=== PATIENT | female | born 1965 | race Caucasian/White ===

== ENCOUNTER 2019-12-03 07:43 | Outpatient (REF) | payer OTHER, SELFPAY ==
--- NOTE | 2019-12-03 07:55 | ECG_ITS ---
Test Reason : PHYSICAL Blood Pressure : / mmHG Vent. Rate : 074 BPM Atrial Rate : 074 BPM P-R Int : 192 ms QRS Dur : 086 ms QT Int : 414 ms P-R-T Axes : 027 -09 010 degrees QTc Int : 459 ms Normal sinus rhythm Normal ECG No previous ECGs available Referred By: Gerber Ivan Electronically Signed By:BOO MORELOS MD
[2019-12-03 10:17] LABS: MANUAL DIFF FLAG NO
[2019-12-03 10:32] LABS: Basophils Percent Auto 0.4 % (0-2); Eosinophils Absolute Auto 0.1 X10*3/uL (0.0-0.4); Eosinophils Percent Auto 0.7 % (0-4); Hemoglobin 12.5 g/dl (12.0-16.0); Imm Gran Abs Auto 0.01 X10*3/uL (0.00-0.03); Imm Gran Pct Auto 0.1 % (0.0-0.4); Lymphocytes Absolute Auto 2.7 X10*3/uL (1.2-4.9); Lymphocytes Percent Auto 38.7 % (20-40); Mean Corpuscular HGB Conc 32.9 g/dl (31.0-35.0); Mean Corpuscular Hemoglobin 30.1 pg (27.0-33.0); Mean Corpuscular Volume 91.6 fL (80-98); Mean Platelet Volume 9.9 fL (9.4-12.3); Monocytes Absolute Auto 0.6 X10*3/uL (0.1-1.2); Monocytes Percent Auto 8.4 % (2-11); Neutrophils Absolute Auto 3.6 X10*3/uL (2.0-8.3); Neutrophils Percent Auto 51.7 % (45-73); Platelet Count 308 X10*3/uL (160-400); Red Blood Count 4.15 X10*6/uL (4.20-5.50); Red Cell Distribution Width 12.7 % (11.0-16.0)
[2019-12-03 10:45] LABS: Glucose Urine UA NEG (NEG); Leukocyte Esterase Urine NEG (NEG); Nitrite Urine NEG (NEG); PH 7.5 (5.0-8.0); Urine Blood 1+ (NEG); Urine Ketones NEG (NEG); Urine Protein NEG (NEG-TRACE)
[2019-12-03 10:47] LABS: Appearance Urine CLEAR; Color Urine STRAW
[2019-12-03 10:56] LABS: Alanine Aminotransferase 18 U/L (0-31); Albumin Level 4.2 g/dL (3.5-5.0); Alkaline Phosphatase 55 U/L (39-117); Anion Gap 15 (12-20); Aspartate Amino Transferase 18 U/L (5-31); Bilirubin Total 0.5 mg/dL (0.0-1.0); Blood Urea Nitrogen 17 mg/dL (9-16); Calcium 8.5 mg/dL (8.4-10.2); Carbon Dioxide 24 mmol/L (22-29); Chloride 104 mmol/L (96-108); Cholesterol 191 mg/dL; Estimated Glomerular Filt Rate > 60; Glucose Fasting 102 mg/dL (60-99); HDL Cholesterol 49 mg/dL; LDL Cholesterol Calculated 111 mg/dl; Potassium 4.5 mmol/l (3.3-5.1); Sodium 138 mmol/L (135-145); Total Protein 6.8 g/dL (6.5-8.0); Triglycerides 155 mg/dL
[2019-12-03 11:03] LABS: RBC Urine 0-2 /HPF (0); Squamous Epithelial Cell Urine TRACE /LPF; WBC Urine 0-2 /HPF (0-4)
[2019-12-03 11:09] LABS: Vitamin D 25-OH Total 26.3 ng/mL (>30)
== END 2019-12-03 07:44 | disposition home or self-care (01) ==
LOC: HO.LAB 07:43
PROVIDERS: PCP Internal Medicine; Visit Provider Internal Medicine
DX: Z00.00 Encounter for general adult medical examination without abnormal findings (principal); E78.00 Pure hypercholesterolemia, unspecified; E55.9 Vitamin D deficiency, unspecified; R73.03 Prediabetes
CPT/HCPCS: 36415; 80053; 80061; 81001; 82306; 85025; 93005

== ENCOUNTER 2019-12-28 13:53 | Outpatient (REF) | payer OTHER, SELFPAY ==
--- NOTE | 2019-12-28 13:56 | CT_ITS ---
EXAMINATION: CT ABDOMEN AND PELVIS WITHOUT AND WITH CONTRAST CLINICAL INFORMATION: Hematuria COMPARISON: Previous CT of the abdomen and pelvis August 2019 TECHNIQUE: Multidetector volumetric imaging was performed of the abdomen and pelvis before and after the IV administration of mL of Omnipaque 300 intravenous contrast. Sagittal and coronal reformatted images were obtained on the technologist's workstation. This CT examination was performed using dose optimization techniques as appropriate, variously including the following: *Automated exposure control *Adjustment of mA and/or kV according to patient size (this includes techniques or standardized protocols for targeted exams where dose is matched to indication/reason for exam; i.e. extremities or head) *Use of iterative reconstruction technique DLP: 852 mGy-cm FINDINGS: LUNG BASES: The visualized lung bases are unremarkable. LIVER, GALLBLADDER, AND BILIARY TREE: The liver is low in attenuation suggestive of fatty infiltration. No focal liver lesion is seen. The gallbladder is normal. There is no biliary duct dilatation. PANCREAS: Unremarkable SPLEEN: Unremarkable ADRENAL GLANDS: Unremarkable KIDNEYS AND URETERS: There is moderate left hydronephrosis from a 9 x 12 mm stone in the left renal pelvis. There is a small 2 mm stone in the lower pole of the left kidney. The left ureter does not appear dilated. No left ureteral stone is seen. The right kidney and ureter are unremarkable. BLADDER: Unremarkable GASTROINTESTINAL TRACT: The small and large bowel are unremarkable. The appendix is is not seen ABDOMINAL WALL: There is a small umbilical hernia containing fat. LYMPH NODES: Normal VASCULAR: Unremarkable PELVIC VISCERA: Unremarkable OSSEOUS STRUCTURES: There is a small amount of low attenuation seen in the left iliopsoas muscle question representing iliopsoas bursitis axial image 70 series 3. There are stable small sclerotic bone lesions probably representing benign bone islands. CT/CT abdomen pelvis wo/w con IMPRESSION: Moderate left hydronephrosis from a 9 x 12 mm left renal pelvis stone. This is similar to August 2019 exam. Small 2 mm left lower pole renal stone. Fatty liver.
[2019-12-28] MEDS: iohexoL 350 MG/ML 100 ML INFUS..BTL 85 ML IV (15:34)
== END 2019-12-28 13:54 | disposition home or self-care (01) ==
LOC: HO.CT 13:53
PROVIDERS: PCP Internal Medicine; Visit Provider Internal Medicine
DX: R31.0 Gross hematuria (principal)
CPT/HCPCS: 74178; Q9967

== ENCOUNTER → 2020-01-13 14:10 | Outpatient (BNVA) | payer OTHER, SELFPAY | PROVIDERS: PCP Internal Medicine; Referring Provider Internal Medicine; Visit Provider Internal Medicine Gastroenterology | DX: Z76.89 Persons encountering health services in other specified circumstances (principal) ==

== ENCOUNTER 2020-02-16 10:36 | Outpatient (REF) | payer OTHER, SELFPAY ==
[2020-02-16 11:01] LABS: COVID-19 Test Negative (Negative)
== END 2020-02-16 10:37 | disposition home or self-care (01) ==
LOC: HO.EMPCOV 10:36
PROVIDERS: Visit Provider Internal Medicine
DX: Z20.828 Contact with and (suspected) exposure to other viral communicable diseases (principal)
CPT/HCPCS: 87635; C9803

== ENCOUNTER 2020-03-09 07:52 | Outpatient (REF) | payer OTHER, SELFPAY ==
[2020-03-09 08:11] LABS: COVID-19 Test Negative (Negative); IDNOW Serial# 55D5AD1C
== END 2020-03-09 07:53 | disposition home or self-care (01) ==
LOC: HO.LAB 07:52
PROVIDERS: PCP Internal Medicine; Visit Provider Internal Medicine
DX: Z20.822 Contact with and (suspected) exposure to COVID-19 (principal)
CPT/HCPCS: 36415; 87635; C9803

== ENCOUNTER 2020-03-16 07:47 | Outpatient (REF) | payer OTHER, SELFPAY ==
[2020-03-16 08:05] LABS: COVID-19 Test Negative (Negative)
== END 2020-03-16 07:48 | disposition home or self-care (01) ==
LOC: HO.EMPCOV 07:47
PROVIDERS: Visit Provider Internal Medicine
DX: Z20.822 Contact with and (suspected) exposure to COVID-19 (principal)
CPT/HCPCS: 36415; 87635; C9803

== ENCOUNTER 2020-09-15 14:54 | Outpatient (REF) | payer OTHER, SELFPAY ==
--- NOTE | ~2020-09-15 | MM_ITS ---
EXAMINATION: MM SCREENING DIGITAL BREAST TOMOSYNTHESIS, BILATERAL CLINICAL INFORMATION: Screening. Asymptomatic. History focal ADH right breast and flat epithelial atypia. Excisional biopsy 11/19/2018. The lifetime risk of breast cancer based on the Tyrer-Cuzick Model is 31%. COMPARISON: Mammography: 09/10/2019, 11/19/2018, 09/24/2018, 09/15/2018, 09/13/2017, 07/14/2016. TECHNIQUE: Digital breast tomosynthesis is performed in both the craniocaudal and mediolateral oblique views along with computer-aided detection (CAD). Synthesized 2D images are generated from the tomosynthesis. FINDINGS: There are scattered areas of fibroglandular density (ACR BI-RADS breast composition Category b). Parenchymal pattern is similar to prior exam. No interval mass or architectural abnormality or abnormal calcifications. The axilla and skin contours are unremarkable. MM/MM tomosynthesis screening BI IMPRESSION: No mammographic evidence of malignancy. ASSESSMENT: BI-RADS 1: Negative RECOMMENDATION: 1. Routine annual mammography screening. 2. The lifetime risk of breast cancer based on the Tyrer-Cuzick Model is 31%. Additional annual adjunct screening with breast MRI may be of benefit in women with a risk score of 20% or greater. This patient's information was entered into a reminder system with a target due date for their next mammogram.
== END 2020-09-15 14:55 | disposition home or self-care (01) ==
LOC: HO.MAMMO 14:54
PROVIDERS: PCP Internal Medicine; Visit Provider Surgery
DX: Z12.31 Encounter for screening mammogram for malignant neoplasm of breast (principal)
CPT/HCPCS: 77063; 77067

== ENCOUNTER → 2020-11-15 14:33 | Outpatient (BNVA) | payer OTHER, SELFPAY | PROVIDERS: PCP Internal Medicine; Visit Provider Obstetrics & Gynecology ==

== ENCOUNTER → 2020-11-24 08:17 | Outpatient (BNV) | payer OTHER, SELFPAY | PROVIDERS: Visit Provider Internal Medicine Medical Oncology | DX: N60.91 Unspecified benign mammary dysplasia of right breast (principal) | CPT/HCPCS: 99213; 99214 ==

== ENCOUNTER 2020-11-28 08:48 | Outpatient (REF) | payer OTHER, SELFPAY ==
--- NOTE | ~2020-11-28 | MR_ITS ---
EXAMINATION: MR BREAST WITHOUT AND WITH CONTRAST, BILATERAL CLINICAL INFORMATION: High-risk screening. The estimated lifetime risk of developing breast cancer is 31%. History of atypical ductal hyperplasia right breast. Excisional biopsy November 2018. COMPARISON: None. Mammography (nondiagnostic monitor review): 09/15/2020. TECHNIQUE: A 1.5 T system and a dedicated breast coil. T1-weighted sequences without fat-saturation were obtained prior to the administration of contrast. Fat-saturated T1 and T2-weighted sequences were also acquired. The patient received 7.5 mL of IV gadolinium-based contrast, Gadavist. Multiple sequential dynamic T1-weighted sequences were obtained through both breasts with fat-saturation. Subtracted images were reviewed. CAD postprocessing with 3-D reconstructions, maximum intensity projections and kinetic analysis was performed by the interpreting radiologist at an independent workstation and reviewed as a portion of this exam. FINDINGS: Amount of Remaining Fibroglandular Signal: There are scattered areas of fibroglandular tissue (ACR BI-RADS breast composition category B).* Background Parenchymal Enhancement: Mild Symmetry of Background Enhancement: Symmetric RIGHT BREAST: There are no suspicious findings. Masses: There is a circumscribed, oval, T2 intense enhancing mass in the outer right breast with a fatty notch. This appears to correspond to an intramammary lymph node on mammography. Non-Mass Enhancement: There is no suspicious non-mass enhancement. Focus: There are no suspicious enhancing foci. Non-Enhancing Findings: Associated findings: There are no suspicious associated findings. Kinetic Curve Assessment: Initial Phase: There are no suspicious areas of color signal. Delayed Phase: There are no areas of washout kinetics. LEFT BREAST: There is a 0.6 cm enhancing mass in the 12-o'clock position, 9 cm from the left nipple (series 100, image 46; series 8, image 27). This has mixed enhancement kinetics. The margins are minimally indistinct. There is some T2 hyperintensity in this area. There is no convincing mammographic correlate. Masses: There are no suspicious enhancing masses. There is a 0.4 cm progressively enhancing mass in the 3-o'clock position, 10 cm from the left nipple (series 100, image 67). This is T2 intense and may represent an intramammary lymph node. Non-Mass Enhancement: There is no suspicious non-mass enhancement. Focus: There are no suspicious enhancing foci. Non-Enhancing Findings: Associated Findings: There are no suspicious associated findings. Kinetic Curve Assessment: Initial Phase: There are mixed kinetics within the enhancing mass in the 12-o'clock position. Delayed Phase: There are no other areas of washout kinetics. The axillary lymph nodes are morphologically normal. No suspicious internal mammary lymph nodes are seen. No suspicious abnormality in the visualized portions of chest or abdomen. MR/MR breast BI wo/w con IMPRESSION: 1. There is a 0.6 cm enhancing mass in the 12-o'clock position, 9 cm from the left nipple. 2. No convincing mammographic correlate. 3. Recommend MR directed diagnostic left breast ultrasound to determine if there is a targetable lesion. 4. If there is no targetable lesion, recommend MR-guided biopsy. ASSESSMENT: Right Breast: ACR BI-RADS 2: Benign finding. Left Breast: ACR BI-RADS 4: Suspicious abnormality - biopsy should be considered. RECOMMENDATIONS: 1. Recommend further evaluation for the enhancing mass in the 12-o'clock position, 9 cm from the left nipple. This should begin with an MR directed targeted left breast ultrasound. 2. If there is no sonographic correlate, consider MR-guided biopsy.
== END 2020-11-28 08:49 | disposition home or self-care (01) ==
LOC: HO.MRI 08:48
PROVIDERS: Visit Provider Internal Medicine
DX: Z91.89 Other specified personal risk factors, not elsewhere classified (principal)
CPT/HCPCS: 77049; A9585

== ENCOUNTER 2020-12-06 10:37 | Outpatient (REF) | payer OTHER, SELFPAY ==
[2020-12-06 10:42] LABS: MANUAL DIFF FLAG NO
[2020-12-06 11:21] LABS: Basophils Percent Auto 0.3 % (0-2); Eosinophils Absolute Auto 0.1 X10*3/uL (0.0-0.4); Eosinophils Percent Auto 0.9 % (0-4); Hematocrit 39.3 % (37-47); Hemoglobin 12.6 g/dl (12.0-16.0); Imm Gran Abs Auto 0.03 X10*3/uL (0.00-0.03); Imm Gran Pct Auto 0.3 % (0.0-0.4); Lymphocytes Absolute Auto 2.5 X10*3/uL (1.2-4.9); Lymphocytes Percent Auto 26.4 % (20-40); Mean Corpuscular HGB Conc 32.1 g/dl (31.0-35.0); Mean Corpuscular Hemoglobin 30.3 pg (27.0-33.0); Mean Corpuscular Volume 94.5 fL (80-98); Mean Platelet Volume 9.7 fL (9.4-12.3); Monocytes Absolute Auto 0.9 X10*3/uL (0.1-1.2); Monocytes Percent Auto 9.1 % (2-11); Neutrophils Absolute Auto 6.1 X10*3/uL (2.0-8.3); Platelet Count 298 X10*3/uL (160-400); Red Blood Count 4.16 X10*6/uL (4.20-5.50); Red Cell Distribution Width 12.8 % (11.0-16.0); White Blood Count 9.6 X10*3/uL (4.8-10.8)
[2020-12-06 11:32] LABS: Estimated Average Glucose 117 mg/dL; Hemoglobin A1c % 5.7 %
[2020-12-06 11:39] LABS: Alanine Aminotransferase 20 U/L (0-31); Albumin Level 4.3 g/dL (3.5-5.0); Alkaline Phosphatase 55 U/L (39-117); Anion Gap 16 (12-20); Aspartate Amino Transferase 21 U/L (5-31); Bilirubin Total 0.7 mg/dL (0.0-1.0); Blood Urea Nitrogen 20 mg/dL (9-16); Carbon Dioxide 22 mmol/L (22-29); Chloride 105 mmol/L (96-108); Cholesterol 211 mg/dL; Estimated Glomerular Filt Rate > 60; Glucose Fasting 112 mg/dL (60-99); HDL Cholesterol 50 mg/dL; LDL Cholesterol Calculated 131 mg/dl; Potassium 4.3 mmol/L (3.3-5.1); Sodium 139 mmol/L (135-145); Total Protein 6.5 g/dL (6.5-8.0); Triglycerides 151 mg/dL
[2020-12-06 11:41] LABS: Reflex LDLD? No
[2020-12-06 11:54] LABS: Appearance Urine CLEAR; Color Urine YELLOW; Glucose Urine UA NEG (NEG); Leukocyte Esterase Urine NEG (NEG); Nitrite Urine NEG (NEG); Specific Gravity - Urine <= 1.005 (1.005-1.025); Urine Blood NEG (NEG); Urine Ketones NEG (NEG); Urine Protein NEG (NEG-TRACE)
[2020-12-06 11:55] LABS: Creatinine Urine 22.88 mg/dL; Microalbumin Urine < 5.0 mg/L
[2020-12-06 11:56] LABS: Vitamin D 25-OH Total 27.9 ng/mL (>30)
== END 2020-12-06 10:38 | disposition home or self-care (01) ==
LOC: HO.LNP 10:37
PROVIDERS: Visit Provider Internal Medicine
DX: Z00.00 Encounter for general adult medical examination without abnormal findings (principal); E78.00 Pure hypercholesterolemia, unspecified; R73.03 Prediabetes; I10 Essential (primary) hypertension; E55.9 Vitamin D deficiency, unspecified
CPT/HCPCS: 80053; 80061; 81003; 82043; 82306; 83036; 85025

== ENCOUNTER → 2020-12-08 13:32 | Outpatient (BNVA) | payer OTHER, SELFPAY | PROVIDERS: PCP Internal Medicine; Referring Provider Internal Medicine; Visit Provider Surgery ==

== ENCOUNTER 2020-12-09 13:43 | Outpatient (REF) | payer OTHER, SELFPAY ==
--- NOTE | ~2020-12-09 | US_ITS ---
EXAMINATION: US DIAGNOSTIC ULTRASOUND BREAST, LEFT CLINICAL INFORMATION: Enhancing nodule left breast 0.6 cm on recent high risk screening breast MRI. No mammographic correlate. Prior history contralateral right breast atypical ductal hyperplasia and flat epithelial atypia, status post excisional biopsy 11/19/2018. COMPARISON: Breast MRI 11/28/2020, digital breast tomosynthesis 09/15/2020. TECHNIQUE: Ultrasound left breast is performed using grayscale imaging and color Doppler without and with harmonics. Imaging is targeted to the upper and upper outer breast. Patient is imaged supine and semiupright and with arm up and down. FINDINGS: There is no focal suspicious finding. There is no solid mass or architectural abnormality. No ultrasound correlate for MR finding. Results are discussed with the patient at time of visit. US/US breast LT limited IMPRESSION: No ultrasound correlate for recent MR finding left breast. ASSESSMENT: BI-RADS 4: Suspicious RECOMMENDATION: MR guided biopsy left breast. If MR biopsy is not performed, then follow-up breast MR in 6-12 months would be recommended.
== END 2020-12-09 13:44 | disposition home or self-care (01) ==
LOC: HO.MAMMO 13:43
PROVIDERS: Visit Provider Surgery
DX: R92.8 Other abnormal and inconclusive findings on diagnostic imaging of breast (principal)
CPT/HCPCS: 76642

== ENCOUNTER 2020-12-26 07:34 | Outpatient (REF) | payer OTHER, SELFPAY ==
--- NOTE | ~2020-12-26 | MM_ITS ---
EXAMINATION: MR GUIDED VACUUM-ASSISTED CORE BIOPSY BREAST, LEFT MM DIGITAL MAMMOGRAPHY POST BIOPSY, LEFT CLINICAL INFORMATION: 6 mm enhancing nodule mid 12:30 left breast. No ultrasound correlate. Prior history contralateral right focal ADH and flat epithelial atypia. Excisional biopsy 11/19/2018. COMPARISON: Mammography 09/10/2019, MR breasts without and with gadolinium contrast 11/28/2020, second look ultrasound 12/09/2020. TECHNIQUE/PROCEDURE: Informed consent was obtained from the patient after discussion of the benefits, risks, and alternatives to biopsy today. Patient appeared to understand. Gave opportunity for questions. Patient signed consent form. Biopsy is performed under MRI guidance using breast surface coil. Imaging is performed without and with use of 7.5 mL Gadavist gadolinium contrast. [employer] introducer localization system is used with grid. LESION: Enhancing nodule mid 12:30 left breast mid depth approximately 0.6 cm. LOCAL ANESTHESIA: 8 mL 1% lidocaine; 11 mL 1% lidocaine with epinephrine. NEEDLE: [employer] 9-gauge vacuum assisted core biopsy device. APPROACH: Lateral medial. CORES: 8. CLIP: TriMark cylinder shaped. POSTPROCEDURE UNILATERAL DIGITAL MAMMOGRAM: Mammography is performed using digital mammography in CC and ML views. There are scattered areas of fibroglandular density (ACR BI-RADS breast composition Category b). The clip marker is in position. No gross hematoma. The patient tolerated the procedure well. No immediate complications. Home instructions reviewed with the patient. Final pathology results are pending. MM/MM diagnostic mammo unilat LT IMPRESSION: 1. Status post MRI guided vacuum-assisted core biopsy left breast with clip placement. 2. Final pathology results pending. An addendum report will be issued.
--- NOTE | ~2020-12-26 | MR_ITS ---
EXAMINATION: MR GUIDED VACUUM-ASSISTED CORE BIOPSY BREAST, LEFT MM DIGITAL MAMMOGRAPHY POST BIOPSY, LEFT CLINICAL INFORMATION: 6 mm enhancing nodule mid 12:30 left breast. No ultrasound correlate. Prior history contralateral right focal ADH and flat epithelial atypia. Excisional biopsy 11/19/2018. COMPARISON: Mammography 09/10/2019, MR breasts without and with gadolinium contrast 11/28/2020, second look ultrasound 12/09/2020. TECHNIQUE/PROCEDURE: Informed consent was obtained from the patient after discussion of the benefits, risks, and alternatives to biopsy today. Patient appeared to understand. Gave opportunity for questions. Patient signed consent form. Biopsy is performed under MRI guidance using breast surface coil. Imaging is performed without and with use of 7.5 mL Gadavist gadolinium contrast. [employer] introducer localization system is used with grid. LESION: Enhancing nodule mid 12:30 left breast mid depth approximately 0.6 cm. LOCAL ANESTHESIA: 8 mL 1% lidocaine; 11 mL 1% lidocaine with epinephrine. NEEDLE: [employer] 9-gauge vacuum assisted core biopsy device. APPROACH: Lateral medial. CORES: 8. CLIP: TriMark cylinder shaped. POSTPROCEDURE UNILATERAL DIGITAL MAMMOGRAM: Mammography is performed using digital mammography in CC and ML views. There are scattered areas of fibroglandular density (ACR BI-RADS breast composition Category b). The clip marker is in position. No gross hematoma. The patient tolerated the procedure well. No immediate complications. Home instructions reviewed with the patient. Final pathology results are pending. MR/MR guided breast biopsy LT IMPRESSION: 1. Status post MRI guided vacuum-assisted core biopsy left breast with clip placement. 2. Final pathology results pending. An addendum report will be issued.
[2020-12-26] MEDS: Lidocaine HCl 1 % MPF 5 ML VIAL SUBCUT ×2 (09:29→09:31)
== END 2020-12-26 07:35 | disposition home or self-care (01) ==
LOC: HO.MRI 07:34
PROVIDERS: Visit Provider Surgery
DX: R92.8 Other abnormal and inconclusive findings on diagnostic imaging of breast (principal)
CPT/HCPCS: 19085; 77065; 88305; A4648; A9585

== ENCOUNTER 2021-02-22 06:51 | Day surgery (SDC) | payer OTHER, SELFPAY ==
[2021-02-16 12:54] VITALS: BMI 29.5
--- NOTE | 2021-02-21 08:41 | P.CONAN_ITS ---
Documented by User: Ainsley Mckee NP 02/21/21 08:42 HPI - Anesthesia Eval Consult details Narrative: 55yo F for Left Breast Biopsy Needle Localization, Breast Lumpectomy PMFSH Active Problems Active Problems: All Active Problems (Updated 02/16/21 @ 12:56 by Paige Fang RN) Well woman exam (Acute) At high risk for breast cancer (Acute) Atypical ductal hyperplasia of right breast (Acute) Abnormal MRI, breast (Acute) Chronic idiopathic constipation (Acute) Past Medical History Medical History Chronic idiopathic constipation COVID-19 vaccine series completed Kidney stone Family History Family History Father HTN (hypertension) CVD (cardiovascular disease) History of heart bypass surgery Mother HTN (hypertension) Endometrial cancer Paternal Grandmother Breast cancer, Onset Age: 40 Surgical History Surgical History Hx of section Hx of colonoscopy Hx of cystoscopy Hx of right breast biopsy Social History Social History Are you a primary customer care professional to a significant other at home: No Do you presently have visiting nurse or other home services: No Alcohol intake: current Alcohol intake frequency: a few times a week Alcohol type: wine Patient Tobacco Use Status: Never used Tobacco Use of substances other than those prescribed or required for medical reasons: No Have you been hit, kicked, punched, or otherwise hurt by someone within the past year? If so, by whom?: No Are you DNR?: No Advance Directives: No Advance Directives Information Provided: Yes (informational brochure mailed) Advance Directives on File: No Recently lost weight without trying: No Eating poorly because of decreased appetite: No Nutrition Risks: No Nutritional Risk Patient : No FDLMP: post menopausal : No Poor oral hygiene: No Meds Allergies Allergy/AdvReac Type Severity Reaction Status Date / Time No Known Allergies Allergy Verified 02/22/21 07:06 Home Medications Medication Instructions Recorded Confirmed Last Taken Type docusate sodium 50 mg capsule 50 mg PO DAILY 11/24/20 02/16/21 Unknown History loratadine 10 mg capsule 10 mg PO DAILY 11/24/20 02/16/21 Unknown History magnesium 30 mg tablet 30 mg PO DAILY 11/24/20 02/16/21 Unknown History Lactobacillus acidophilus 10 10,000 mmu cells PO DAILY 02/16/21 02/16/21 Unknown History billion cell capsule (Probiotic) evening primrose oil 500 mg capsule 500 mg PO DAILY 02/16/21 02/16/21 Unknown History Exam Exam Date and Time: February 21, 2021 0841 Height,Weight and Vital Signs: Height 5 ft 1 in Weight 70.76 kg Pertinent Lab Results Pertinent Lab Results: Laboratory Tests 12/06/20 12/06/20 07:10 07:10 WBC 9.6 Hgb 12.6 Hct 39.3 Plt Count 298 Sodium 139 Potassium 4.3 Chloride 105 Carbon Dioxide 22 BUN 20 H Creatinine 0.73 Assessment and Plan Assessment Anesthesia Assessment: Chart Reviewed Documented by User: Kvng Erwin 02/22/21 07:54 PMFSH Past Medical History Medical History Chronic idiopathic constipation COVID-19 vaccine series completed Kidney stone Functional capacity: independent ambulation Family History Family History Father HTN (hypertension) CVD (cardiovascular disease) History of heart bypass surgery Mother HTN (hypertension) Endometrial cancer Paternal Grandmother Breast cancer, Onset Age: 40 Family history of problems with anesthesia: No Surgical History Surgical History Hx of section Hx of colonoscopy Hx of cystoscopy Hx of right breast biopsy History of Problems with Anesthesia: No Social History Social History Are you a primary customer care professional to a significant other at home: No Do you presently have visiting nurse or other home services: No Alcohol intake: current Alcohol intake frequency: a few times a week Alcohol type: wine Patient Tobacco Use Status: Never used Tobacco Use of substances other than those prescribed or required for medical reasons: No Have you been hit, kicked, punched, or otherwise hurt by someone within the past year? If so, by whom?: No Are you DNR?: No Advance Directives: No Advance Directives Information Provided: Yes (informational brochure mailed) Advance Directives on File: No Recently lost weight without trying: No Eating poorly because of decreased appetite: No Nutrition Risks: No Nutritional Risk Patient : No FDLMP: post menopausal : No Poor oral hygiene: No Meds Allergies Allergy/AdvReac Type Severity Reaction Status Date / Time No Known Allergies Allergy Verified 02/22/21 07:06 Home Medications Medication Instructions Recorded Confirmed Last Taken Type docusate sodium 50 mg capsule 50 mg PO DAILY 11/24/20 02/16/21 Unknown History loratadine 10 mg capsule 10 mg PO DAILY 11/24/20 02/16/21 Unknown History magnesium 30 mg tablet 30 mg PO DAILY 11/24/20 02/16/21 Unknown History Lactobacillus acidophilus 10 10,000 mmu cells PO DAILY 02/16/21 02/16/21 Unknown History billion cell capsule (Probiotic) evening primrose oil 500 mg capsule 500 mg PO DAILY 02/16/21 02/16/21 Unknown History Exam Airway Mallampati Class: III TM Dist: >3cm Neck ROM: Full Loose/Missing/Broken Teeth: Yes (Fillings ) Heart: rrr Lungs: bl breath sounds Assessment and Plan Final Anesthetic Review Family History of Problems with Anesthesia: No History of Problems with Anesthesia: No NPO: Yes ASA Class: II Final Preanesthetic Review: Anecarie Risks/Benef Reviewed Procedure Risk: Intermediate Anesthetic Plan Anesthetic Plan: MAC: Disposition: Standard PACU
--- NOTE | ~2021-02-22 | MM_ITS ---
EXAMINATION: MM MAMMOGRAM GUIDED NEEDLE LOCALIZATION BREAST, LEFT MM NEEDLE LOCALIZATION SPECIMEN FROM THE LEFT BREAST CLINICAL INFORMATION: Intraductal papilloma upper left breast on MR biopsy 12/26/2020. Prior history contralateral right breast focal ADH. TC score 31%. COMPARISON: MRI breasts 11/28/2020, MR guided left biopsy 12/26/2020, postbiopsy left mammography 12/26/2020. TECHNIQUE NEEDLE LOC: Proper informed consent is obtained from the patient after discussion of the procedure, potential risks and complications, and alternatives including declining the procedure today. Patient was given an opportunity for questions. The patient appeared to understand. The patient consented to the procedure and signed the consent form. GUIDANCE: Digital mammography. APPROACH: Cranio-caudal. TARGET: Cylinder shaped clip marker posterior upper left breast. ANESTHESIA: Carbonated lidocaine 1%: 6 mL. LOCALIZATION MARKER: [place] [employer]. 7.5 cm length. The skin is prepped and local anesthesia administered. The needle is positioned and position assessed with mammography. The wire is hooked into position. Reva needle protector placed. The patient tolerated the procedure well and had no immediate complication. Procedure results called to senior medical technologist (Lea) for Dr. Duke prior to surgery. TECHNIQUE SPECIMEN RADIOGRAPH: Imaging of the excised specimen is performed using digital mammography in 1 view. FINDINGS SPECIMEN RADIOGRAPH: The specimen shows the needle and hookwire are delivered intact. The biopsy clip marker is identified in the specimen. Results were called to Dr. Bertram Duke in the operating room at the time of imaging. MM/MM needle loc LT IMPRESSION: 1. Status post left breast needle localization with wire hooked into position. 2. Post operative specimen radiograph obtained.
[2021-02-22 07:08] VITALS: BP 122/83; PULSE 71; RESP 16; TEMP 36.1; O2SAT 98
--- NOTE | 2021-02-22 07:23 | MHC.SHP ---
Pre-Procedural Eval Section A Date of Service: 02/22/21 The patient is an INPATIENT: No Changes since office visit: Yes Patient answered all questions; No Cold of Flu in the past 2 weeks, No New Medical Problems and No Changes in Medication The History & Physical has been completed within 30 days and I have reviewed it.: No Section B Chief Complaint: Papilloma left breast Details of Present Illness: Previous history right breast ADH, now with MRI bx proven papilloma left breast Relevant Social History: None Present Medications: see Short Stay Collaborative assessment Medical History: No relevant PMH History of Previous Operations: Relevant previous surgery/procedure and date(s) (Right breast lumpectomy) Allergies: Allergies Allergy/AdvReac Type Severity Reaction Status Date / Time No Known Allergies Allergy Verified 02/22/21 07:06 Review of Systems Sugical H&P ROS: Negative: Constitution, Cardiovascular, Respiratory, Neurological, Psychiatric, Hem-Onc, Allergic/Immunologic, Gastrointestinal, Genitourinary, Musculoskeletal, Integumentary, Endocrine and Eyes/Ears/Nose/Throat Exam Surgical H&P Exam: Normal: HEENT, Normal: Heart, Normal: Lungs, Normal: Extremities, Normal: Abdomen, Normal: Skin and Normal: Neurological Plan Diagnosis/Plan: Unchanged I have reviewed the history and physical and performed a pertinent physical examination on my patient. No changes have occurred unless specified.
[2021-02-22] MEDS: Lactated Ringers 1,000 ML 100 ML IVCONT (07:24)
--- NOTE | 2021-02-22 10:20 | W.PM.OPN ---
Operative Note Operative Note Date of Service: 02/22/21 Narrative: Preoperative diagnosis: Intraductal papilloma left breast Postoperative diagnosis: same Procedure: left breast lumpectomy with needle localization Surgeon: Bertram Duke MD Refinery Operator Assistant: Minerva Lock PA-C Anesthesia: MAC Indications for procedure: 55-year-old female presenting with a recent finding on breast MRI felt to be suspicious for malignancy. Subsequent MR guided core biopsy revealed intraductal papilloma. She presents today for wider excision to assure complete removal. Operative findings: Marking clip and wire within the specimen. Gross specimen revealed biopsy cavity within the specimen with grossly clear margins. Specimen: Left breast lumpectomy Estimated blood loss: 5 mL Complications: none Procedure details: patient was brought to the OR placed in a supine position. After administering light sedation , the left breast was prepped with ChloraPrep and draped in a sterile fashion. a surgical time-out was called the consent confirmed. Patient received preoperative antibiotics and Venodyne boots were in place. Local anesthesia consisting of 0.5% Sensorcaine was then infiltrated around the localizing needle in the upper outer quadrant of the left breast. A transverse incision was then made to include the needle insertion site. This was carried out through subcutaneous tissue. Superior and inferior skin flaps were then created. Core tissue then obtained surrounding this localizing wire starting from the medial margin, moving to the inferior than superior than lateral margin. The specimen was then dissected off the chest wall using electrocautery. A stasis was assured all times electrocautery. Specimen was marked with a long suture on the lateral margin short suture on the superior margin and loop suture on the deep margin. Specimen was passed off the table and sent to x-ray for a specimen x-ray followed by gross evaluation and pathology. Wounds were irrigated with saline solution and suctioned dry. Deep breast tissue was then reapproximated using interrupted 3-0 Polysorb sutures. Dermis was reapproximated using interrupted 3-0 Polysorb sutures. Skin was then closed using a running subcuticular 4-0 Polysorb suture. Steri-Strips 2 x 2 gauze and Tegaderm were then applied. The patient tolerated the procedure well. Sponge, instrument, and needle counts reported as correct. Patient was transferred to PACU in stable condition.
[2021-02-22 10:23] VITALS: BP 111/77; PULSE 68; RESP 12; TEMP 36.6; O2SAT 100
[2021-02-22 10:38] VITALS: BP 129/81; PULSE 65; RESP 18; O2SAT 99
[2021-02-22] MEDS: Acetaminophen 325 MG TABLET 650 MG PO (10:49)
[2021-02-22 10:53] VITALS: BP 130/88; PULSE 65; RESP 18; TEMP 36.6; O2SAT 99
== END 2021-02-22 11:15 | disposition home or self-care (01) ==
PROVIDERS: PCP Internal Medicine; Visit Provider Surgery
PROC: (CPT 19301; principal; 2021-02-22 09:10)
PROC: (CPT 19301; 2021-02-22 09:10)
DX: N60.82 Other benign mammary dysplasias of left breast (principal); D24.2 Benign neoplasm of left breast; Z91.89 Other specified personal risk factors, not elsewhere classified; Z80.3 Family history of malignant neoplasm of breast; N60.22 Fibroadenosis of left breast; N60.32 Fibrosclerosis of left breast; N60.42 Mammary duct ectasia of left breast; Z79.810 Long term (current) use of selective estrogen receptor modulators (SERMs)
CPT/HCPCS: 19301; 19281; 88307; 88329; A4648; J0690; J1100; J2250; J2370; J2405; J3010

== ENCOUNTER 2021-02-22 19:14 | Emergency (ER) | payer OTHER, SELFPAY ==
[2021-02-22 19:25] VITALS: BP 100/62; BP 118/79; PULSE 76; PULSE 87; RESP 18; TEMP 36.4; O2SAT 96; O2SAT 98; BMI 29.6
--- NOTE | 2021-02-22 22:24 | ECG_ITS ---
Test Reason : SYNCOPE Blood Pressure : / mmHG Vent. Rate : 077 BPM Atrial Rate : 077 BPM P-R Int : 198 ms QRS Dur : 072 ms QT Int : 392 ms P-R-T Axes : 044 012 009 degrees QTc Int : 443 ms Poor data quality Normal sinus rhythm Normal ECG When compared with ECG of 03-DEC-2019 08:06, No significant change was found Referred By: Yarely Castrejon Electronically Signed By:MARTA BENITEZ MD
--- NOTE | 2021-02-22 22:52 | ED_ITS ---
HPI - Syncope General Chief Complaint: Syncope Stated Complaint: syncope Time Seen by Provider: 02/22/21 22:24 Source: patient Mode of arrival: EMS History of Present Illness HPI narrative: 55-year-old female brought in by EMS after patient underwent a left breast lumpectomy earlier today, was finished by 11:00 a.m., and states that she has consumed 2-316 oz glasses of water and that she took a 5 mg oxycodone at 5:00 p.m., 8 dinner at approximately 6 and then did not feel well and when she stood began to feel dizzy diaphoretic and nauseous and patient states that she passed out. She denies any prodrome a palpitations, states that this is never happened before, and states that she is still feeling somewhat lightheaded. She denies any speech or extremity numbness/tingling/weakness. Patient has had [employer] COVID-19 vaccines. Related Data Home Medications Medication Instructions Recorded Confirmed docusate sodium 50 mg capsule 50 mg PO DAILY 11/24/20 02/16/21 loratadine 10 mg capsule 10 mg PO DAILY 11/24/20 02/16/21 magnesium 30 mg tablet 30 mg PO DAILY 11/24/20 02/16/21 Lactobacillus acidophilus 10 10,000 mmu cells PO DAILY 02/16/21 02/16/21 billion cell capsule (Probiotic) evening primrose oil 500 mg capsule 500 mg PO DAILY 02/16/21 02/16/21 Previous Rx's Medication Instructions Recorded tamoxifen 20 mg tablet 20 mg PO DAILY #90 tab 11/15/20 oxycodone-acetaminophen 5 mg-325 1 tab PO Q6H PRN #14 tab 02/22/21 mg tablet (Endocet) Allergies Allergy/AdvReac Type Severity Reaction Status Date / Time No Known Allergies Allergy Verified 02/22/21 19:25 Review of Systems Review of Systems: Pertinent positives and negatives as stated in HPI 10 point review of systems is otherwise negative. [facility] Past Medical History Source: nursing notes reviewed Medical History Chronic idiopathic constipation COVID-19 vaccine series completed Kidney stone Surgical History Hx of section Hx of colonoscopy Hx of cystoscopy Hx of right breast biopsy Family History Family History Father HTN (hypertension) CVD (cardiovascular disease) History of heart bypass surgery Mother HTN (hypertension) Endometrial cancer Paternal Grandmother Breast cancer, Onset Age: 40 Social History Social History Are you a primary career guidance counselor to a significant other at home: No Do you presently have visiting nurse or other home services: No Alcohol intake: current Alcohol intake frequency: a few times a week Alcohol t ype: wine Patient Tobacco Use Status: Never used Tobacco Advance Directives: No Advance Directives Information Provided: No Patient : No Physical Exam Vital Signs: Vital Signs: Last Vital Signs Temp 97.7 F 02/22/21 23:40 Pulse 95 02/22/21 23:40 Resp 18 02/22/21 23:40 BP 133/82 02/22/21 23:40 Pulse Ox 100 02/22/21 23:40 BMI result Body Mass Index 29.6 VITAL SIGNS: Reviewed. GENERAL: Well developed, well nourished, in no acute distress. HEAD: Normocephalic/atraumatic EYES: PERRLA, EOMI intact without pain, no nystagmus NOSE: Nares patent bilateral OROPHARYNX: no oral lesions noted, posterior pharynx clear, mildly dry mucosa NECK: Supple, no adenopathy LUNGS: Normal breath sounds. No adventitious sounds or accessory muscle use. SpO2<96> BREAST: Left breast with dressing C/D/I, significant ecchymosis surrounding noted, fluctuance unable to be appreciated CARDIOVASCULAR: Regular rate and rhythm without noted murmurs, no JVD or lower extremity edema. ABDOMEN: Soft, non-tender, non-distended with bowel sounds. MUSCULOSKELETAL: No tenderness, deformities, or effusions noted on gross inspection. EXTREMITIES: No cyanosis, clubbing or edema. SKIN: Inspection of the skin reveals no rashes, diaphoresis NEUROLOGIC: Alert and oriented x 4. Strength and sensation to light touch were grossly intact x 4, no pronator drift, cranial nerves 2-12 grossly intact, no facial asymmetry Course Course Course Narrative: 55-year-old female with history and clinical presentation consistent with vasovagal syncopal episode and low clinical suspicion for neurologic or cardiac arrhythmia in etiology given history. However, will rule out infection, anemia, cardiac arrhythmia. Review of all investigations otherwise negative for acute findings and patient received 1 L of IV fluids after noting presence of ketones in the urine and increase in heart rate on standing with orthostatics. All results discussed with the patient at bedside and on re-evaluation she is feeling better and is otherwise discharged home in stable condition. MDM - Syncope Lab Data Result diagrams: 02/22/21 23:00 02/22/21 23:00 Labs: Lab Results 02/22/21 02/22/21 02/22/21 Range/Units 23:00 23:00 23:00 WBC 14.8 H (4.8-10.8) X10*3/uL RBC 3.72 L (4.20-5.50) X10*6/uL Hgb 11.4 L (12.0-16.0) g/dl Hct 35.0 L (37.0-47.0) % MCV 94.1 (80.0-98.0) fL MCH 30.6 (27.0-33.0) pg MCHC 32.6 (31.0-35.0) g/dl RDW 12.6 (11.0-16.0) % Plt Count 283 (160-400) X10*3/uL MPV 9.7 (9.4-12.3) fL Immature Gran % (Auto) 0.6 H (0.0-0.4) % Neut % (Auto) 87.0 H (45-73) % Lymph % (Auto) 8.5 L (20-40) % [place] % (Auto) 3.8 (2-11) % Eos % (Auto) 0.0 (0-4) % Baso % (Auto) 0.1 (0-2) % Lymph # (Auto) 1.3 (1.2-4.9) X10*3/uL [place] # (Auto) 0.6 (0.1-1.2) X10*3/uL Eos # (Auto) 0.0 (0.0-0.4) X10*3/uL Baso # (Auto) 0.0 (0.0-0.2) X10*3/uL Abs Immat Gran (auto) 0.09 H (0.00-0.03) X10*3/uL Absolute Neuts (auto) 12.9 H (2.0-8.3) x10*3/uL Absolute Nucleated RBC 0.000 (0.0-0.012) X10*3/uL Nucleated RBC % (auto) 0.0 (0.0-0.2) /100WBC PT 13.2 H (9.9-13.0) SEC INR 1.2 H (0.9-1.1) Sodium 140 (135-145) mmol/L Potassium 4.1 (3.3-5.1) mmol/L Chloride 106 (96-108) mmol/L Carbon Dioxide 23 (22-29) mmol/L Anion Gap 15 (12-20) BUN 17 H (9-16) mg/dL Creatinine 0.75 (0.5-1.4) mg/dL Estim Creat Clear Calc 76.4 Estimated GFR > 60 Random Glucose 219 H (60-115) mg/dL Calcium 9.2 (8.4-10.2) mg/dL Total Bilirubin 0.4 (0.0-1.0) mg/dL AST 20 (5-31) U/L ALT 25 (0-31) U/L Alkaline Phosphatase 51 (39-117) U/L Total Protein 6.4 L (6.5-8.0) g/dL Albumin 4.0 (3.5-5.0) g/dL Urine Color Urine Appearance Urine pH (5.0-8.0) Ur Specific [place] (1.005-1.025) Urine Protein (NEG-TRACE) MG/DL Urine Glucose (UA) (NEG) MG/DL Urine Ketones (NEG) MG/DL Urine Blood (NEG) Urine Nitrite (NEG) Ur Leukocyte Esterase (NEG) 02/23/21 Range/Units 00:10 WBC (4.8-10.8) X10*3/uL RBC (4.20-5.50) X10*6/uL Hgb (12.0-16.0) g/dl Hct (37.0-47.0) % MCV (80.0-98.0) fL MCH (27.0-33.0) pg MCHC (31.0-35.0) g/dl RDW (11.0-16.0) % Plt Count (160-400) X10*3/uL MPV (9.4-12.3) fL Immature Gran % (Auto) (0.0-0.4) % Neut % (Auto) (45-73) % Lymph % (Auto) (20-40) % [place] % (Auto) (2-11) % Eos % (Auto) (0-4) % Baso % (Auto) (0-2) % Lymph # (Auto) (1.2-4.9) X10*3/uL [place] # (Auto) (0.1-1.2) X10*3/uL Eos # (Auto) (0.0-0.4) X10*3/uL Baso # (Auto) (0.0-0.2) X10*3/uL Abs Immat Gran (auto) (0.00-0.03) X10*3/uL Absolute Neuts (auto) (2.0-8.3) x10*3/uL Absolute Nucleated RBC (0.0-0.012) X10*3/uL Nucleated RBC % (auto) (0.0-0.2) /100WBC PT (9.9-13.0) SEC INR (0.9-1.1) Sodium (135-145) mmol/L Potassium (3.3-5.1) mmol/L Chloride (96-108) mmol/L Carbon Dioxide (22-29) mmol/L Anion Gap (12-20) BUN (9-16) mg/dL Creatinine (0.5-1.4) mg/dL Estim Creat Clear Calc Estimated GFR Random Glucose (60-115) mg/dL Calcium (8.4-10.2) mg/dL Total Bilirubin (0.0-1.0) mg/dL AST (5-31) U/L ALT (0-31) U/L Alkaline Phosphatase (39-117) U/L Total Protein (6.5-8.0) g/dL Albumin (3.5-5.0) g/dL Urine Color YELLOW Urine Appearance CLEAR Urine pH 5.5 (5.0-8.0) Ur Specific [place] >= 1.030 H (1.005-1.025) Urine Protein TRACE (NEG-TRACE) MG/DL Urine Glucose (UA) NEG (NEG) MG/DL Urine Ketones 40 (NEG) MG/DL Urine Blood NEG (NEG) Urine Nitrite NEG (NEG) Ur Leukocyte Esterase NEG (NEG) ECG Data Attestation: I personally reviewed and interpreted this ECG as follows: Prior ECG tracings: available for review (12/03/2019) Interpretation: Normal sinus rhythm, HR-77, no STEMI, AK/QRS/QTC are within normal limits. Discharge Plan Discharge Clinical Impression: Syncope, vasovagal, Dehydration Patient Disposition: Home, Self-Care Instructions: Dehydration (ED), Syncope (ED) Additional Instructions: 1. Resume all home medications as prescribed. 2. Continue to increase fluid hydration, especially with water. Use precautions when changing position for the next 24 hours. 3. Please follow-up with Dr. Duke in the morning for re-evaluation of the left breast and the ecchymosis that is noted. Return to the ER for any worsening symptoms. Prescriptions: No Action tamoxifen 20 mg tablet 20 mg PO DAILY Qty: 90 RF: 4 docusate sodium 50 mg Capsule 50 mg PO DAILY RF: 0 magnesium 30 mg Tablet 30 mg PO DAILY RF: 0 loratadine 10 mg Capsule 10 mg PO DAILY RF: 0 evening primrose oil 500 mg Capsule 500 mg PO DAILY RF: 0 Probiotic 10 billion cell Capsule 10,000 mmu cells PO DAILY RF: 0 oxycodone-acetaminophen [Endocet] 5-325 mg tablet 1 tab PO Q6H PRN (Reason: pain (scale score 7-10)) Qty: 14 RF: 0 Referrals: Bertram Duke MD [Physician] - 2 days
--- NOTE | 2021-02-22 23:06 | PC.NURSE ---
IV established, labs obtained. equipment maintenance tech at bedside for EKG.
[2021-02-22 23:18] LABS: MANUAL DIFF FLAG NO
[2021-02-22 23:20] LABS: Basophils Percent Auto 0.1 % (0-2); Hemoglobin 11.4 g/dl (12.0-16.0); Imm Gran Abs Auto 0.09 X10*3/uL (0.00-0.03); Imm Gran Pct Auto 0.6 % (0.0-0.4); Lymphocytes Absolute Auto 1.3 X10*3/uL (1.2-4.9); Lymphocytes Percent Auto 8.5 % (20-40); Mean Corpuscular HGB Conc 32.6 g/dl (31.0-35.0); Mean Corpuscular Hemoglobin 30.6 pg (27.0-33.0); Mean Corpuscular Volume 94.1 fL (80.0-98.0); Mean Platelet Volume 9.7 fL (9.4-12.3); Monocytes Absolute Auto 0.6 X10*3/uL (0.1-1.2); Monocytes Percent Auto 3.8 % (2-11); Neutrophils Absolute Auto 12.9 x10*3/uL (2.0-8.3); Platelet Count 283 X10*3/uL (160-400); Red Blood Count 3.72 X10*6/uL (4.20-5.50); Red Cell Distribution Width 12.6 % (11.0-16.0); White Blood Count 14.8 X10*3/uL (4.8-10.8)
[2021-02-22 23:33] LABS: Alanine Aminotransferase 25 U/L (0-31); Alkaline Phosphatase 51 U/L (39-117); Anion Gap 15 (12-20); Aspartate Amino Transferase 20 U/L (5-31); Bilirubin Total 0.4 mg/dL (0.0-1.0); Blood Urea Nitrogen 17 mg/dL (9-16); Calcium 9.2 mg/dL (8.4-10.2); Carbon Dioxide 23 mmol/L (22-29); Chloride 106 mmol/L (96-108); Creatinine Clr Calc Pharmacy 76.4; Estimated Glomerular Filt Rate > 60; Glucose Random 219 mg/dL (60-115); Potassium 4.1 mmol/L (3.3-5.1); Sodium 140 mmol/L (135-145); Total Protein 6.4 g/dL (6.5-8.0)
[2021-02-22 23:34] LABS: INTERNATIONAL NORM RATIO 1.2 (0.9-1.1); Prothrombin Time 13.2 SEC (9.9-13.0)
[2021-02-22 23:37] VITALS: BP 112/72; PULSE 76
[2021-02-22 23:38] VITALS: BP 133/82; BP 138/87; PULSE 105; PULSE 95
[2021-02-22 23:40] VITALS: BP 133/82; PULSE 95; RESP 18; TEMP 36.5; O2SAT 100
[2021-02-23] MEDS: 0.9 % Sodium Chloride 1,000 ML 999 ML IV (00:07)
--- NOTE | 2021-02-23 00:13 | PC.NURSE ---
UA obtained and sent. IVF infusing per MAR.
[2021-02-23 00:17] LABS: Appearance Urine CLEAR; Color Urine YELLOW; Glucose Urine UA NEG (NEG); Leukocyte Esterase Urine NEG (NEG); Nitrite Urine NEG (NEG); PH 5.5 (5.0-8.0); Specific Gravity - Urine >= 1.030 (1.005-1.025); Urine Blood NEG (NEG); Urine Ketones 40 MG/DL (NEG); Urine Protein TRACE MG/DL (NEG-TRACE)
[2021-02-23 01:56] VITALS: BP 146/74; PULSE 81; RESP 16; O2SAT 99
== END 2021-02-23 02:09 | disposition home or self-care (01) ==
PROVIDERS: Emergency Provider Student in an Organized Health Care Education/Training Program; PCP Internal Medicine
DX: R55 Syncope and collapse (principal); E86.0 Dehydration; Z98.890 Other specified postprocedural states
CPT/HCPCS: 36415; 80053; 81003; 85025; 85610; 93005; 96360; 99284

== ENCOUNTER → 2021-02-23 14:00 | Outpatient (BNVA) | payer OTHER, SELFPAY | PROVIDERS: PCP Internal Medicine; Referring Provider Internal Medicine; Visit Provider Surgery ==

== ENCOUNTER → 2021-03-02 12:51 | Outpatient (BNVA) | payer OTHER, SELFPAY | PROVIDERS: PCP Internal Medicine; Referring Provider Internal Medicine; Visit Provider Surgery ==

== ENCOUNTER 2021-03-17 16:17 | Outpatient (REF) | payer OTHER, SELFPAY ==
[2021-03-17 16:21] LABS: MANUAL DIFF FLAG NO
[2021-03-17 16:23] LABS: Basophils Percent Auto 0.5 % (0-2); Eosinophils Absolute Auto 0.1 X10*3/uL (0.0-0.4); Eosinophils Percent Auto 1.1 % (0-4); Hematocrit 35.1 % (37.0-47.0); Hemoglobin 11.5 g/dl (12.0-16.0); Imm Gran Abs Auto 0.02 X10*3/uL (0.00-0.03); Imm Gran Pct Auto 0.2 % (0.0-0.4); Lymphocytes Absolute Auto 2.9 X10*3/uL (1.2-4.9); Lymphocytes Percent Auto 35.5 % (20-40); Mean Corpuscular HGB Conc 32.8 g/dl (31.0-35.0); Mean Corpuscular Hemoglobin 30.7 pg (27.0-33.0); Mean Corpuscular Volume 93.6 fL (80.0-98.0); Mean Platelet Volume 9.5 fL (9.4-12.3); Monocytes Absolute Auto 0.8 X10*3/uL (0.1-1.2); Monocytes Percent Auto 9.3 % (2-11); Neutrophils Absolute Auto 4.4 x10*3/uL (2.0-8.3); Neutrophils Percent Auto 53.4 % (45-73); Platelet Count 339 X10*3/uL (160-400); Red Blood Count 3.75 X10*6/uL (4.20-5.50); Red Cell Distribution Width 13.2 % (11.0-16.0); White Blood Count 8.2 X10*3/uL (4.8-10.8)
== END 2021-03-17 16:18 | disposition home or self-care (01) ==
LOC: HO.LNP 16:17
PROVIDERS: Visit Provider Internal Medicine
DX: T14.8XXA Other injury of unspecified body region, initial encounter (principal)
CPT/HCPCS: 85025

== ENCOUNTER → 2021-05-09 14:23 | Outpatient (BNVA) | payer OTHER, SELFPAY | PROVIDERS: PCP Internal Medicine; Referring Provider Internal Medicine; Visit Provider Surgery | DX: N64.89 Other specified disorders of breast (principal); D24.2 Benign neoplasm of left breast; Z48.817 Encounter for surgical aftercare following surgery on the skin and subcutaneous tissue | CPT/HCPCS: 99212 ==

== ENCOUNTER 2021-05-15 07:37 | Outpatient (REF) | payer OTHER, SELFPAY ==
--- NOTE | ~2021-05-15 | US_ITS ---
EXAMINATION: US DIAGNOSTIC ULTRASOUND BREAST, LEFT US ULTRASOUND-GUIDED CYST ASPIRATION BREAST, LEFT CLINICAL INFORMATION: Status post surgical excision intraductal papilloma upper left breast 02/22/2021. Palpable mass at surgical site, likely chronic hematoma. COMPARISON: MR breast 11/28/2020, second look ultrasound 12/09/2020, MR guided left breast biopsy 12/26/2020, mammography 12/26/2020, needle localization 02/22/2021. US BREAST, LEFT TECHNIQUE: Ultrasound of the left breast is performed with real-time bean scale imaging and color Doppler. Ultrasound is targeted to the area of palpable concern posterior 12:30 o'clock left breast. FINDINGS: There is a circumscribed oval heterogeneous hypoechoic mass at site of palpable concern and prior excision 12:30 o'clock position 9 cm from nipple measuring approximately 5.2 x 4.7 x 5.0 cm. There is increased through-transmission of sound. No peripheral or internal color flow. There is no skin thickening or edema tracking in soft tissue planes. On clinical inspection no skin erythema or warmth. Finding appears most likely to represent a hematoma. US ASPIRATION BREAST, LEFT FINDINGS: Proper informed consent is obtained from the patient after discussion of the procedure, potential risks and complications, and alternatives. Patient was given an opportunity for questions. The patient appeared to understand. The patient consented to the procedure and signed the consent form. LOCATION: Posterior 12:30 o'clock left breast GUIDANCE: Ultrasound-guided; aseptic technique. LESION: Suspected hematoma posterior 12:30 o'clock position 5.2 cm APPROACH: Oblique lateral medial ANESTHESIA: 6 mL carbonated 1% lidocaine NEEDLES: 18-gauge straight, 15-gauge straight. ASPIRATION: 27 mL of blood is aspirated. The echogenic areas of the hematoma are unable to be aspirated as expected. Post aspiration dimensions are 4.8 x 2.8 x 4.3 cm. 1 syringe of blood temporarily held in event there are labs requested on the aspirate. Results discussed with patient at time of imaging. Procedure results called to medical authorization specialist (Kandi) for Dr. Duke at time of procedure. US/US breast LT limited IMPRESSION: -Hematoma at site of palpable concern measuring 5.2 x 4.7 x 5.0 cm. -Status post aspiration, 27 mL blood. -Post aspiration mentions approximately 4.8 x 2.8 x 4.3 cm. ASSESSMENT: BI-RADS 2: Benign RECOMMENDATION: 1. Patient to follow-up with Dr. Duke. 2. Routine annual mammography screening..
--- NOTE | ~2021-05-15 | US_ITS ---
EXAMINATION: US DIAGNOSTIC ULTRASOUND BREAST, LEFT US ULTRASOUND-GUIDED CYST ASPIRATION BREAST, LEFT CLINICAL INFORMATION: Status post surgical excision intraductal papilloma upper left breast 02/22/2021. Palpable mass at surgical site, likely chronic hematoma. COMPARISON: MR breast 11/28/2020, second look ultrasound 12/09/2020, MR guided left breast biopsy 12/26/2020, mammography 12/26/2020, needle localization 02/22/2021. US BREAST, LEFT TECHNIQUE: Ultrasound of the left breast is performed with real-time bean scale imaging and color Doppler. Ultrasound is targeted to the area of palpable concern posterior 12:30 o'clock left breast. FINDINGS: There is a circumscribed oval heterogeneous hypoechoic mass at site of palpable concern and prior excision 12:30 o'clock position 9 cm from nipple measuring approximately 5.2 x 4.7 x 5.0 cm. There is increased through-transmission of sound. No peripheral or internal color flow. There is no skin thickening or edema tracking in soft tissue planes. On clinical inspection no skin erythema or warmth. Finding appears most likely to represent a hematoma. US ASPIRATION BREAST, LEFT FINDINGS: Proper informed consent is obtained from the patient after discussion of the procedure, potential risks and complications, and alternatives. Patient was given an opportunity for questions. The patient appeared to understand. The patient consented to the procedure and signed the consent form. LOCATION: Posterior 12:30 o'clock left breast GUIDANCE: Ultrasound-guided; aseptic technique. LESION: Suspected hematoma posterior 12:30 o'clock position 5.2 cm APPROACH: Oblique lateral medial ANESTHESIA: 6 mL carbonated 1% lidocaine NEEDLES: 18-gauge straight, 15-gauge straight. ASPIRATION: 27 mL of blood is aspirated. The echogenic areas of the hematoma are unable to be aspirated as expected. Post aspiration dimensions are 4.8 x 2.8 x 4.3 cm. 1 syringe of blood temporarily held in event there are labs requested on the aspirate. Results discussed with patient at time of imaging. Procedure results called to medical technologist prn (Kandi) for Dr. Duke at time of procedure. US/US breast cyst asp LT IMPRESSION: -Hematoma at site of palpable concern measuring 5.2 x 4.7 x 5.0 cm. -Status post aspiration, 27 mL blood. -Post aspiration mentions approximately 4.8 x 2.8 x 4.3 cm. ASSESSMENT: BI-RADS 2: Benign RECOMMENDATION: 1. Patient to follow-up with Dr. Duke. 2. Routine annual mammography screening..
== END 2021-05-15 07:38 | disposition home or self-care (01) ==
LOC: HO.MAMMO 07:37
PROVIDERS: Visit Provider Surgery
DX: D24.2 Benign neoplasm of left breast (principal); N64.89 Other specified disorders of breast
CPT/HCPCS: 19000; 76642

== ENCOUNTER 2021-10-16 14:16 | Outpatient (REF) | payer OTHER, SELFPAY ==
--- NOTE | ~2021-10-16 | MM_ITS ---
EXAMINATION: MM SCREENING DIGITAL BREAST TOMOSYNTHESIS, BILATERAL CLINICAL INFORMATION: Status post left lumpectomy for intraductal papilloma, 02/22/2021. Ultrasound-guided left aspiration post lumpectomy hematoma, 05/15/2021. Status post right lumpectomy for focal ADH, 11/19/2018. COMPARISON: Mammography: 02/22/2021, 12/26/2020, 09/15/2020, 09/10/2019, 11/19/2018, 09/24/2018, 09/15/2018; targeted ultrasound left breast 05/15/2021. TECHNIQUE: Digital breast tomosynthesis is performed in both the craniocaudal and mediolateral oblique views along with computer-aided detection (CAD). Synthesized 2D images are generated from the tomosynthesis. FINDINGS: There are scattered areas of fibroglandular density (ACR BI-RADS breast composition Category b). There are post therapy changes upper outer left breast with prominent scarring posterior. There is a subtle benign oil cyst at posterior lateral aspect of scar measuring just under 1 cm. Current exam represents first mammography since left lumpectomy. Patient will be recalled to fully characterize postsurgical changes to establish new baseline appearance. The remainder of the left breast is unremarkable. Right breast shows no interval mass or architectural abnormality. There is an intramammary node again seen posterior upper outer right breast. There are no abnormal calcifications in either breast. The axilla are unremarkable. The bilateral axilla are unremarkable. MM/MM tomosynthesis screening BI IMPRESSION: Left: -Prominent scarring at lumpectomy site. Patient will be recalled to obtain additional views to fully characterize new baseline appearance. Right: -No mammographic evidence of malignancy. ASSESSMENT: BI-RADS 0: Incomplete - Need Additional Imaging Evaluation RECOMMENDATION: 1. Additional views of the left breast (spot CC, spot ML). 2. Targeted ultrasound if warranted after review of the additional views. 3. Radiology department staff will contact the patient for additional imaging. This patient's information was entered into a reminder system with a target due date for their next mammogram.
== END 2021-10-16 14:17 | disposition home or self-care (01) ==
LOC: HO.MAMMO 14:16
PROVIDERS: PCP Internal Medicine; Visit Provider Internal Medicine
DX: Z12.31 Encounter for screening mammogram for malignant neoplasm of breast (principal)
CPT/HCPCS: 77063; 77067

== ENCOUNTER 2021-10-19 13:09 | Outpatient (REF) | payer OTHER, SELFPAY ==
--- NOTE | ~2021-10-19 | MM_ITS ---
EXAMINATION: MM DIAGNOSTIC DIGITAL BREAST TOMOSYNTHESIS, LEFT CLINICAL INFORMATION: Recall from screening to fully characterize lumpectomy site upper outer left breast (intraductal papilloma). Also history focal ADH contralateral right breast, 2019. COMPARISON: Mammography: 10/16/2021, 02/22/2021, 12/26/2020; left ultrasound-guided lumpectomy hematoma aspiration 05/15/2021. TECHNIQUE: Digital breast tomosynthesis is performed. 2D images are generated from the tomosynthesis. The following views are obtained: Spot CC, spot ML. FINDINGS: There are scattered areas of fibroglandular density (ACR BI-RADS breast composition Category b). Additional spot views again show the expected post therapy changes upper outer left breast. Results are discussed with the patient at time of visit. MM/MM tomosynthesis diagnostic LT IMPRESSION: Post lumpectomy changes upper outer left breast. ASSESSMENT: BI-RADS 2: Benign RECOMMENDATION: -Routine annual mammography screening. -Additional bilateral adjunct screening breast MRI as clinical risk factors warrant. This patient's information was entered into a reminder system with a target due date for their next mammogram.
== END 2021-10-19 13:10 | disposition home or self-care (01) ==
LOC: HO.MAMMO 13:09
PROVIDERS: PCP Internal Medicine; Visit Provider Internal Medicine
DX: Z98.890 Other specified postprocedural states (principal)
CPT/HCPCS: 77061; 77065

== ENCOUNTER 2021-12-12 10:49 | Outpatient (REF) | payer OTHER, SELFPAY ==
[2021-12-12 10:53] LABS: MANUAL DIFF FLAG NO
[2021-12-12 11:09] LABS: Basophils Absolute Auto 0.1 X10*3/uL (0.0-0.2); Basophils Percent Auto 0.6 % (0-2); Eosinophils Absolute Auto 0.1 X10*3/uL (0.0-0.4); Eosinophils Percent Auto 1.1 % (0-4); Hematocrit 38.9 % (37.0-47.0); Hemoglobin 12.3 g/dl (12.0-16.0); Imm Gran Abs Auto 0.03 X10*3/uL (0.00-0.03); Imm Gran Pct Auto 0.4 % (0.0-0.4); Lymphocytes Absolute Auto 3.4 X10*3/uL (1.2-4.9); Mean Corpuscular HGB Conc 31.6 g/dl (31.0-35.0); Mean Corpuscular Hemoglobin 29.9 pg (27.0-33.0); Mean Corpuscular Volume 94.6 fL (80.0-98.0); Mean Platelet Volume 9.8 fL (9.4-12.3); Monocytes Absolute Auto 0.9 X10*3/uL (0.1-1.2); Monocytes Percent Auto 10.1 % (2-11); Neutrophils Percent Auto 47.8 % (45-73); Platelet Count 289 X10*3/uL (160-400); Red Blood Count 4.11 X10*6/uL (4.20-5.50); Red Cell Distribution Width 12.9 % (11.0-16.0); White Blood Count 8.4 X10*3/uL (4.8-10.8)
[2021-12-12 11:22] LABS: Appearance Urine Clear; Glucose Urine UA Negative (Negative); Leukocyte Esterase Urine Negative (Negative); Nitrite Urine Negative (Negative); PH 6.5 (5.0-9.0); Specific Gravity - Urine <= 1.005 (1.005-1.025); Urine Blood Negative (Negative); Urine Ketones Negative (Negative); Urine Protein Negative (Neg-Trace)
[2021-12-12 11:23] LABS: Alanine Aminotransferase 17 U/L (0-31); Albumin Level 4.3 g/dL (3.5-5.0); Alkaline Phosphatase 51 U/L (39-117); Anion Gap 16 (12-20); Aspartate Amino Transferase 20 U/L (5-31); Bilirubin Total 0.6 mg/dL (0.0-1.0); Blood Urea Nitrogen 14 mg/dL (9-16); Calcium 8.9 mg/dL (8.4-10.2); Carbon Dioxide 23 mmol/L (22-29); Chloride 103 mmol/L (96-108); Cholesterol 215 mg/dL; Estimated Glomerular Filt Rate > 60; Glucose Fasting 111 mg/dL (60-99); HDL Cholesterol 55 mg/dL; LDL Cholesterol Calculated 140 mg/dl; Potassium 4.2 mmol/L (3.3-5.1); Sodium 138 mmol/L (135-145); Total Protein 6.8 g/dL (6.5-8.0); Triglycerides 104 mg/dL
[2021-12-12 11:24] LABS: Estimated Average Glucose 120 mg/dL; Hemoglobin A1c % 5.8 %
[2021-12-12 11:32] LABS: Color Urine Colorless
[2021-12-12 11:34] LABS: RBC Urine 0-2 /HPF (0-2); Squamous Epithelial Cell Urine 0-2 /HPF (0-2); WBC Urine 0-5 /HPF (0-5)
[2021-12-12 11:35] LABS: Bacteria Urine None Seen (None Seen); Hyaline Casts Urine 0-2 /LPF (0-2)
[2021-12-12 11:46] LABS: Vitamin D 25-OH Total 35.2 ng/mL (>30)
[2021-12-12 12:02] LABS: Creatinine Urine 14.36 mg/dL; Microalbumin Urine < 5.0 mg/L
== END 2021-12-12 10:50 | disposition home or self-care (01) ==
LOC: HO.LNP 10:49
PROVIDERS: Visit Provider Internal Medicine
DX: Z00.00 Encounter for general adult medical examination without abnormal findings (principal); R73.03 Prediabetes; I10 Essential (primary) hypertension; E78.00 Pure hypercholesterolemia, unspecified; E55.9 Vitamin D deficiency, unspecified
CPT/HCPCS: 80053; 80061; 81001; 82043; 82306; 83036; 85025

== ENCOUNTER 2022-02-27 14:22 | Outpatient (REF) | payer OTHER, SELFPAY ==
[2022-03-06 16:30] LABS: HPV mRNA E6/E7 rflx Not Detected (Not Detected)
== END 2022-02-27 14:23 | disposition home or self-care (01) ==
LOC: HO.LNP 14:22
PROVIDERS: PCP Internal Medicine; Visit Provider Obstetrics & Gynecology
DX: Z01.419 Encounter for gynecological examination (general) (routine) without abnormal findings (principal); Z11.51 Encounter for screening for human papillomavirus (HPV); Z91.89 Other specified personal risk factors, not elsewhere classified
CPT/HCPCS: 87624; 88142

== ENCOUNTER 2022-05-04 14:14 | Outpatient (REF) | payer OTHER, SELFPAY ==
--- NOTE | ~2022-05-04 | MR_ITS ---
EXAMINATION: MR BREAST WITHOUT AND WITH CONTRAST, BILATERAL CLINICAL INFORMATION: Status post left upper outer quadrant surgical excisional biopsy for papilloma. Prominent postsurgical scar with indeterminate diagnostic mammography. Prior right breast excision for atypia 2018. COMPARISON: Breast MRI 11/28/2020. Screening mammography 09/15/2020, diagnostic mammography 10/16/2021, and associated diagnostic imaging. TECHNIQUE: Imaging was performed with a dedicated breast coil. Prior to the administration of contrast, bilateral axial T1 and bilateral axial T2 weighted sequences were obtained. After the uneventful administration of?7 mL of Gadavist, dynamic contrast-enhanced VIBRANT series through the breasts in the axial plane were performed. Subtracted images were performed and reviewed. A delayed sagittal sequence through both breasts was acquired. Additionally, CAD post-processing, including maximum intensity projections, 3-D reconstructions and kinetic analysis, were performed an independent workstation and reviewed by the interpreting radiologist is a portion of this exam. FINDINGS: The breasts are comprised of scattered fibroglandular elements. The tissue undergoes mild background enhancement. LEFT BREAST: There is a spiculated 2 cm mass in the upper outer quadrant of the left breast at 1:00 (image 29/90). This is a post excisional biopsy scar following resection of a papilloma. There is minimal associated nonmass enhancement generally thin and rim-like consistent with postsurgical change. Associated oil cyst again noted. The remainder of the left breast is unchanged without suspicious mass or dominant nonmass enhancement. RIGHT BREAST: No suspicious mass, dominant nonmass enhancement or architectural distortion. Stable intraparenchymal node in the upper outer quadrant. Nearby 5 mm focus of nonmass enhancement at 10:00 posteriorly (image 54) unchanged. No suspicious mass or dominant nonmass enhancement. Minimal postsurgical changes in the superior right breast following excision for atypia. No abnormal associated enhancement. There is no suspicious internal mammary chain or axillary adenopathy. Limited views of the chest and abdomen are unremarkable. MR/MR breast BI wo/w con IMPRESSION: Expected postsurgical changes in the left upper outer quadrant. Stable findings in the right upper outer quadrant. ASSESSMENT: LEFT BREAST: BI-RADS 2, benign finding. RIGHT BREAST: BI-RADS 2, benign findings. RECOMMENDATIONS: Recommend continued diagnostic mammographic follow-up with bilateral diagnostic mammography in 5 months time. Yearly bilateral breast MRI per published guidelines in high-risk patients.
== END 2022-05-04 14:15 | disposition home or self-care (01) ==
LOC: HO.MRI 14:14
PROVIDERS: PCP Internal Medicine; Visit Provider Surgery
DX: N60.91 Unspecified benign mammary dysplasia of right breast (principal)
CPT/HCPCS: 77049; A9585

== ENCOUNTER → 2022-05-10 13:08 | Outpatient (BNVA) | payer OTHER, SELFPAY | PROVIDERS: PCP Internal Medicine; Visit Provider Surgery | DX: Z13.89 Encounter for screening for other disorder (principal) ==

== ENCOUNTER 2022-10-29 13:45 | Outpatient (REF) | payer OTHER, SELFPAY ==
--- NOTE | ~2022-10-29 | MM_ITS ---
EXAMINATION: MM SCREENING DIGITAL BREAST TOMOSYNTHESIS, BILATERAL CLINICAL INFORMATION: Screening. Asymptomatic. The patient has a history of upper outer quadrant left breast excision for an intraductal papilloma. Patient also has a history of focal atypical ductal hyperplasia in the right breast from 2019. COMPARISON: Mammography: This study is compared with prior exams dating back to 2019. TECHNIQUE: Digital breast tomosynthesis is performed in both the craniocaudal and mediolateral oblique views along with computer-aided detection (CAD). Synthesized 2D images are generated from the tomosynthesis. FINDINGS: There are scattered areas of fibroglandular density (ACR BI-RADS breast composition Category b). There are no significant masses, abnormal calcifications, or other abnormalities. There are postsurgical changes in the upper outer quadrant of the left breast. MM/MM tomosynthesis screening BI IMPRESSION: No mammographic evidence of malignancy. ASSESSMENT: BI-RADS BI-RADS 2 - Benign Findings RECOMMENDATION: Routine annual mammography screening. 1 year F/U This examination should not preclude the clinical evaluation of a suspicious palpable abnormality. This patient's information was entered into a reminder system with a target due date for their next mammogram.
== END 2022-10-29 13:46 | disposition home or self-care (01) ==
LOC: HO.MAMMO 13:45
PROVIDERS: Visit Provider Internal Medicine
DX: Z12.31 Encounter for screening mammogram for malignant neoplasm of breast (principal)
CPT/HCPCS: 77063; 77067

== ENCOUNTER → 2022-10-29 14:00 | Outpatient (BNV) | payer OTHER, SELFPAY | PROVIDERS: Visit Provider Radiology Diagnostic Radiology | DX: Z12.31 Encounter for screening mammogram for malignant neoplasm of breast (principal) | CPT/HCPCS: 77063; 77067 ==

== ENCOUNTER 2022-12-14 11:46 | Outpatient (REF) | payer OTHER, SELFPAY ==
[2022-12-14 11:52] LABS: MANUAL DIFF FLAG NO
[2022-12-14 11:58] LABS: Appearance Urine Clear; Color Urine Yellow; Glucose Urine UA Negative (Negative); Leukocyte Esterase Urine Trace (Negative); Nitrite Urine Negative (Negative); PH 7.5 (5.0-9.0); Specific Gravity - Urine <= 1.005 (1.005-1.025); UMIC TRIGGER UACC YES; Urine Blood Negative (Negative); Urine Ketones Negative (Negative); Urine Protein Negative (Neg-Trace)
[2022-12-14 12:00] LABS: Basophils Percent Auto 0.5 % (0-2); Eosinophils Absolute Auto 0.1 X10*3/uL (0.0-0.4); Eosinophils Percent Auto 1.8 % (0-4); Hematocrit 37.9 % (37.0-47.0); Hemoglobin 12.4 g/dl (12.0-16.0); Imm Gran Abs Auto 0.02 X10*3/uL (0.00-0.03); Imm Gran Pct Auto 0.4 % (0.0-0.4); Lymphocytes Percent Auto 35.6 % (20-40); Mean Corpuscular HGB Conc 32.7 g/dl (31.0-35.0); Mean Corpuscular Hemoglobin 30.6 pg (27.0-33.0); Mean Corpuscular Volume 93.6 fL (80.0-98.0); Monocytes Absolute Auto 0.7 X10*3/uL (0.1-1.2); Neutrophils Absolute Auto 2.8 x10*3/uL (2.0-8.3); Neutrophils Percent Auto 49.7 % (45-73); Platelet Count 256 X10*3/uL (160-400); Red Blood Count 4.05 X10*6/uL (4.20-5.50); Red Cell Distribution Width 12.9 % (11.0-16.0); White Blood Count 5.7 X10*3/uL (4.8-10.8)
[2022-12-14 12:01] LABS: Bacteria Urine None Seen (None Seen); Hyaline Casts Urine 0-2 /LPF (0-2); RBC Urine 0-2 /HPF (0-2); Squamous Epithelial Cell Urine 0-2 /HPF (0-2); WBC Urine 0-5 /HPF (0-5)
[2022-12-14 12:17] LABS: Estimated Average Glucose 117 mg/dL; Hemoglobin A1C 108.4229 umol/L; Hemoglobin A1c % 5.7 % (<6.0)
[2022-12-14 12:49] LABS: Alanine Aminotransferase 20 U/L (0-31); Albumin Level 4.1 g/dL (3.5-5.0); Alkaline Phosphatase 48 U/L (39-117); Anion Gap 14 (12-20); Aspartate Amino Transferase 21 U/L (5-31); Bilirubin Total 0.6 mg/dL (0.0-1.0); Blood Urea Nitrogen 13 mg/dL (9-16); Calcium 8.9 mg/dL (8.4-10.2); Carbon Dioxide 23 mmol/L (22-29); Chloride 106 mmol/L (96-108); Cholesterol 195 mg/dL (<200); Estimated Glomerular Filt Rate > 60; Glucose Fasting 117 mg/dL (60-99); HDL Cholesterol 49 mg/dL (>40); LDL Cholesterol Calculated 126 mg/dL (<100); Potassium 4.1 mmol/L (3.3-5.1); Sodium 139 mmol/L (135-145); Total Protein 6.6 g/dL (6.5-8.0); Triglycerides 104 mg/dL (<150)
[2022-12-14 12:53] LABS: Vitamin D 25-OH Total 56.5 ng/mL (>30)
[2022-12-14 13:39] LABS: Creatinine Urine 22.03 mg/dL; Microalbumin Urine < 5.0 mg/L
== END 2022-12-14 11:47 | disposition home or self-care (01) ==
LOC: HO.LNP 11:46
PROVIDERS: Visit Provider Internal Medicine
DX: Z00.00 Encounter for general adult medical examination without abnormal findings (principal); R73.03 Prediabetes; E78.00 Pure hypercholesterolemia, unspecified; E55.9 Vitamin D deficiency, unspecified; I10 Essential (primary) hypertension
CPT/HCPCS: 80053; 80061; 81001; 82043; 82306; 82570; 83036; 85025

== ENCOUNTER 2022-12-18 14:34 | Outpatient (AMB) | payer OTHER, SELFPAY ==
--- NOTE | 2022-12-18 14:37 | MHC.OFFVIS ---
Intake Vital Signs 12/18/22 14:44 Height 5 ft 1 in Weight 161 lb 4 oz BMI 30.5 BP 147/74 H Blood Pressure Location Lt brachial Position Sitting Pulse 87 Intake Visit Reasons: 6 month follow, breast exam Intake Note: Patient is seen in office for 6 month follow up visit, breast exam. Patient c/o: denies any concerns at the time of visit Policy Adviser Required: No Accompanied by: Self / Same As Patient Allergies No Known Allergies Allergy (Verified 12/18/22 14:38) Medication List - Last Reconciled 12/18/22 by Bertram Duke MD evening primrose oil 500 mg PO DAILY loratadine 10 mg PO DAILY magnesium 30 mg PO DAILY tamoxifen 20 mg PO DAILY HPI HPI Comments History of Present Illness Details 57-year-old female patient with prior history of right breast atypical ductal hyperplasia status post lumpectomy with needle localization on 11/19/[address] Mcmahon now returning for high risk breast evaluation.? She was evaluated by Dr. Cantor and started on tamoxifen for risk reduction.? A mammogram dated 09/15/2020 revealed no mammographic evidence of malignancy bilaterally (BI-RADS 1:? Negative).? Her Tyrer-Cuzick model lifetime risk of breast cancer was determined to be 31%.? As a result an MRI of the breast was obtained 11/28/2020.? This revealed a 6 mm enhancing mass in the 12 o'clock position, 9 cm from the nipple with mixed enhancement kinetics.? This was felt to be suspicious for abnormality (BI-RADS 4 left breast).? The right breast revealed only benign findings (BI-RADS 2).? Recommendation was for MR directed targeted left breast ultrasound in the 12 o'clock position, 9 cm from the nipple.? If there is no sonographic correlate MR guided biopsy was suggested.? Patient denies any palpable mass in either side.? Her family history is significant for a paternal grandmother with breast cancer.? Menarche age 14, , menopause 53. MR guided core biopsy of the left breast was performed on 12/26/2020.? This revealed an intraductal papilloma.? She subsequent underwent a left breast lumpectomy with needle localization on 02/22/2021.? Pathology was benign and revealed no residual papilloma.? Her postop course was complicated by a postoperative hematoma requiring a visit to the emergency department.? She denies any new symptoms in the breast and generally feels well. Her most recent mammogram dated 10/29/2022 revealed no mammographic evidence of malignancy (BI-RADS 2). Breast MRI performed on 05/04/2022 revealed the expected postsurgical changes in the left breast at the upper outer quadrant and stable findings in the right breast upper outer quadrant. Findings were felt to be benign (BI-RADS 2 bilaterally). Yearly breast MRI was recommended. [facility] Medical History ASCUS of cervix with negative high risk HPV COVID-19 vaccine series completed Kidney stone Chronic idiopathic constipation Surgical History History of lumpectomy of left breast Hx of cystoscopy Hx of right breast biopsy Hx of section Hx of colonoscopy Family History Father CVD (cardiovascular disease) History of heart bypass surgery HTN (hypertension) Mother Endometrial cancer HTN (hypertension) Paternal Grandmother Breast cancer, Onset Age: 40 Maternal Grandfather Esophageal cancer Paternal Uncle Esophageal cancer Social History Household Members: Spouse Housing: House Are you a primary health care / medical job titles to a significant other at home: No Do you presently have visiting nurse or other home services: No Alcohol intake: current Alcohol intake frequency: a few times a week Alcohol type: wine Patient Tobacco Use Status: Never used Tobacco service: No Current occupational status: employed Female Reproductive History Menstrual Age of Menarche: 14 Review of Systems Const All systems reviewed & are unremarkable except as noted in HPI and below Denies nipple discharge Skin/Breast Denies breast swelling, Denies breast skin changes, Denies breast pain, Denies breast mass, Denies change in breast shape and Denies nipple discharge Claus/Lymph Denies lymphadenopathy Physical Exam Const General: comfortable, well developed and alert Nutritional Appearance: well nourished Orientation/consciousness: patient oriented x3 Limitations: no limitations Chest Other: Left breast incision in the upper outer quadrant is much softer with no underlying palpable hematoma appreciated. No other palpable mass, skin change, nipple discharge, or palpable lymph node is appreciated. Right breast reveals no palpable mass, skin change, nipple discharge, or enlarged lymph node. Resp Other: Breathing comfortably on room air, no respiratory distress Effort & Inspection: normal respiratory effort Skin Other: Warm, dry, no rashes Neuro General: patient oriented x3 Extrem Other: No edema in the left upper extremity. Assessment & Plan Assessment & Plan (1) At high risk for breast cancer: Code(s): Z91.89 - Other specified personal risk factors, not elsewhere classified (2) Atypical ductal hyperplasia of right breast: Code(s): N60.91 - Unspecified benign mammary dysplasia of right breast (3) Intraductal papilloma of left breast: Code(s): D24.2 - Benign neoplasm of left breast Plan 57-year-old female patient with a previous history of right breast atypical ductal hyperplasia and an intraductal papilloma of left breast S/P wider excision to assure complete removal. This was complicated by a postoperative hematoma which is now resolved. Follow-up mammogram dated on 10/29/2022 revealed no mammographic evidence of malignancy (BI-RADS 3). Previously calculated Tyrer-Cuzick remaining lifetime risk of breast cancer is 31%, above the 20% threshold placing her at high risk for breast cancer. Breast MRI of 05/04/2022 revealed no new suspicious changes (BI-RADS 2 bilaterally). Examination today revealed well-healed incisions in bilateral breast with no suspicious findings. Recommend follow-up examination in 6 months. She will be due for mammogram in October 2023 and MRI in April 2023. Orders: Orders MR breast BI wo/w con 05/06/23 D24.2 - Benign neoplasm of left breast, N60.91 - Unspecified benign mammary dysplasia of right breast, Z91.89 - Other specified personal risk factors, not elsewhere classified Coding Level of Care Code Est Pt Level 3 (40536) Diagnoses At high risk for breast cancer Z91.89 Atypical ductal hyperplasia of right breast N60.91 Intraductal papilloma of left breast D24.2
[2022-12-18 14:44] VITALS: BP 147/74; PULSE 87; BMI 30.5
== END 2022-12-18 14:56 | disposition home or self-care (01) ==
PROVIDERS: PCP Internal Medicine; Visit Provider Surgery
DX: N60.91 Unspecified benign mammary dysplasia of right breast (principal); D24.2 Benign neoplasm of left breast; Z91.89 Other specified personal risk factors, not elsewhere classified
CPT/HCPCS: 99213

== ENCOUNTER → 2022-12-18 14:34 | Outpatient (BNVA) | payer OTHER, SELFPAY | PROVIDERS: PCP Internal Medicine; Visit Provider Surgery ==

== ENCOUNTER 2023-01-25 09:37 | Outpatient (REF) | payer OTHER, SELFPAY ==
[2023-01-25 09:49] LABS: MANUAL DIFF FLAG NO
[2023-01-25 10:00] LABS: Basophils Percent Auto 0.4 % (0-2); Eosinophils Absolute Auto 0.1 X10*3/uL (0.0-0.4); Eosinophils Percent Auto 1.1 % (0-4); Hemoglobin 12.3 g/dl (12.0-16.0); Imm Gran Abs Auto 0.03 X10*3/uL (0.00-0.03); Imm Gran Pct Auto 0.4 % (0.0-0.4); Lymphocytes Absolute Auto 2.8 X10*3/uL (1.2-4.9); Lymphocytes Percent Auto 38.6 % (20-40); Mean Corpuscular HGB Conc 33.2 g/dl (31.0-35.0); Mean Corpuscular Hemoglobin 31.2 pg (27.0-33.0); Mean Corpuscular Volume 93.9 fL (80.0-98.0); Mean Platelet Volume 9.5 fL (9.4-12.3); Monocytes Absolute Auto 0.7 X10*3/uL (0.1-1.2); Monocytes Percent Auto 10.2 % (2-11); Neutrophils Absolute Auto 3.6 x10*3/uL (2.0-8.3); Neutrophils Percent Auto 49.3 % (45-73); Platelet Count 268 X10*3/uL (160-400); Red Blood Count 3.94 X10*6/uL (4.20-5.50); Red Cell Distribution Width 12.8 % (11.0-16.0); White Blood Count 7.2 X10*3/uL (4.8-10.8)
[2023-01-25 10:51] LABS: Alanine Aminotransferase 26 U/L (0-31); Albumin Level 4.3 g/dL (3.5-5.0); Alkaline Phosphatase 48 U/L (39-117); Anion Gap 13 (12-20); Aspartate Amino Transferase 26 U/L (5-31); Bilirubin Total 0.4 mg/dL (0.0-1.0); Blood Urea Nitrogen 20 mg/dL (9-16); Calcium 9.1 mg/dL (8.4-10.2); Carbon Dioxide 25 mmol/L (22-29); Chloride 107 mmol/L (96-108); Estimated Glomerular Filt Rate > 60; Glucose Random 102 mg/dL (60-115); Potassium 4.4 mmol/L (3.3-5.1); Sodium 141 mmol/L (135-145); Total Protein 6.9 g/dL (6.5-8.0)
== END 2023-01-25 09:38 | disposition home or self-care (01) ==
LOC: HO.LAB 09:37
PROVIDERS: PCP Internal Medicine; Visit Provider Internal Medicine Medical Oncology
DX: N60.91 Unspecified benign mammary dysplasia of right breast (principal)
CPT/HCPCS: 36415; 80053; 85025

== ENCOUNTER 2023-03-04 14:38 | Outpatient (AMB) | payer OTHER, SELFPAY ==
--- NOTE | 2023-03-04 14:42 | A.OFFVIS_ITS ---
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 No complaints. Last Pap/HPV was in 03/12 was negative, previous co testing was in 10/06 was negative, preceded by ascus/HPV negative in 09/04 Last Mammogram was BI-RADS 2 in 11/10, the patient is due for her next breast MRI due in 05/11, the patient is high risk for breast cancer and is being followed up by Dr. Duke , who orders her yearly MRI Last Colonoscopy was 7 years ago, the patient is for next screening colonoscopy in 3 years [facility] Medical History (Updated 03/04/23 @ 14:51 by Jeremy Flower MD) ASCUS of cervix with negative high risk HPV COVID-19 vaccine series completed Kidney stone Chronic idiopathic constipation Surgical History History of lumpectomy of left breast Hx of cystoscopy Hx of right breast biopsy Hx of section Hx of colonoscopy Family History Father CVD (cardiovascular disease) History of heart bypass surgery HTN (hypertension) Mother Endometrial cancer HTN (hypertension) Paternal Grandmother Breast cancer, Onset Age: 40 Maternal Grandfather Esophageal cancer Paternal Uncle Esophageal cancer Social History Household Members: Spouse Housing: House Are you a primary lpn care manager to a significant other at home: No Do you presently have visiting nurse or other home services: No Alcohol intake: current Alcohol intake frequency: a few times a week Alcohol type: wine Patient Tobacco Use Status: Never used Tobacco service: No Current occupational status: employed Female Reproductive History Menstrual Age of Menarche: 14 Total pregnancies: 3 Full term: 3 Number of Living Children: 3 Date of last pap smear: 02/28/22 (negative) History of abnormal pap smear: Yes Review of Systems Const All systems reviewed & are unremarkable except as noted in HPI and below Card Reports as per HPI Resp Reports as per HPI GI Reports as per HPI and Reports no additional complaints Reports as per HPI Physical Exam Vital Signs: Last Vital Signs BP 120/70 03/04/23 14:44 BMI result Body Mass Index 30.4 Const General: cooperative, healthy appearing and comfortable Chest Chest palpation & inspection: normal inspection of the chest and normal palpation of entire chest wall Breast/axilla inspection: normal inspection of the breasts and normal inspection of the axillae Breast/axilla palpation: normal palpation of the breasts, normal palpation of th e axillae and no axillary lymphadenopathy Resp Effort & Inspection: normal respiratory effort Auscultation: clear to auscultation bilaterally Percussion: percussion normal Cardio Palpation: normal PMI Rate: regular rate Rhythm: regular rhythm Heart sounds: no murmurs and no rubs Peripheral pulses: Peripheral pulses 2+ throughout GI Inspection: Yes normal to inspection Palpation (GI): Soft to palpation, nontender, no guarding, not rigid and No hepatosplenomegaly present Percussion: Yes normal to percussion Auscultation: normal bowel sounds Rectal Exam - Female: deferred General: Yes bladder normal to palpation External Female Exam: No lesion Speculum Exam - Vagina: normal appearance of the vagina, normal palpation, normal vaginal discharge and not erythematous Speculum Exam - Cervix: normal appearance of the cervix and normal palpation Bimanual exam- vagina & uterus: normal bimanual exam, normal palpation, uterine size normal, bladder normal to palpation, consistency normal and normal palpation Bimanual Exam- Adnexa, other: normal adnexae, no masses and no tenderness Assessment & Plan Assessment & Plan (1) Well woman exam: Comment: High-risk breast cancer status Code(s): Z01.419 - Encounter for gynecological examination (general) (routine) without abnormal findings Plan: Co testing not indicated this year. Counseled the patient about the recommended dietary allowance of 1200 mg of Calcium & 600 IU of vitamin D. Instructions given the patient to schedule next screen Mammogram in 11/11 and breast MRI in 05/11 and to follow-up with Dr. Duke regarding her high-risk breast cancer status. The patient was instructed to perform monthly self-breast exams and schedule annual exam in a year. All questions answered and the patient verbalized understanding. Coding Level of Care Code Est Pt Prev Care 40-64y(49029) Diagnoses Well woman exam Z01.419
[2023-03-04 14:44] VITALS: BP 120/70; BMI 30.4
== END 2023-03-04 15:09 | disposition home or self-care (01) ==
LOC: HO.HWS 14:38
PROVIDERS: PCP Internal Medicine; Visit Provider Obstetrics & Gynecology
DX: Z01.419 Encounter for gynecological examination (general) (routine) without abnormal findings (principal)
CPT/HCPCS: 99396

== ENCOUNTER → 2023-03-04 14:38 | Outpatient (BNVA) | payer OTHER, SELFPAY | PROVIDERS: PCP Internal Medicine; Visit Provider Obstetrics & Gynecology ==

== ENCOUNTER 2023-05-15 14:15 | Outpatient (REF) | payer OTHER, SELFPAY ==
--- NOTE | ~2023-05-15 | MR_ITS ---
EXAMINATION: MR BREAST WITHOUT AND WITH CONTRAST, BILATERAL CLINICAL INFORMATION: Personal history of bilateral excision for right breast atypia (2019) and left breast papilloma (2021). COMPARISON: Bilateral breast MRI 05/04/2022, 11/28/2020. TECHNIQUE: Imaging was performed with a dedicated breast coil. Prior to the administration of contrast, bilateral axial T1 and bilateral axial T2 weighted sequences were obtained. After the uneventful administration of?7 mL of Gadavist, dynamic contrast-enhanced VIBRANT series through the breasts in the axial plane were performed. Subtracted images were performed and reviewed. A delayed sagittal sequence through both breasts was acquired. Additionally, CAD post-processing, including maximum intensity projections, 3-D reconstructions and kinetic analysis, were performed an independent workstation and reviewed by the interpreting radiologist is a portion of this exam. FINDINGS: The patient's fibroglandular tissue demonstrates minimal background parenchymal enhancement. LEFT BREAST: There are postsurgical changes in the upper outer quadrant, middle to posterior depth with no suspicious mass-like enhancement. No suspicious mass-like or [id number] enhancement. No abnormal skin thickening or nipple retraction. No abnormal architectural distortion. Review of the T2 weighted images demonstrates no fibrocystic changes or dilated ducts. Review of kinetic images reveals no additional findings. RIGHT BREAST: In the 4 o'clock position, 3 cm from the nipple (subtracted sequence image 76 of 106), there is a new T2 isointense, microlobulated, enhancing nodule measuring 0.6 cm, although enhancement kinetics are predominantly progressive in nature, the morphology of this finding is indeterminate. Subtle postsurgical scarring from prior excision is noted in the 8 o'clock position, posterior depth with no associated enhancement. There is no skin thickening or nipple retraction present. There is no suspicious internal mammary chain or axillary adenopathy. Limited views of the chest and abdomen are unremarkable. MR/MR breast BI wo/w con IMPRESSION: Indeterminate enhancing nodule in the 4 o'clock position of the right breast as above. ASSESSMENT: LEFT BREAST: BI-RADS 2, benign. RIGHT BREAST: BI-RADS 4, suspicious. RECOMMENDATIONS: MR-guided core biopsy of right breast enhancing nodule in the 4 o'clock position is recommended. Results were called to Justin Gilbert RN on 05/24/23.
[2023-05-15] MEDS: gadobutroL 7.5 ML VIAL IVPUSH (15:33)
== END 2023-05-15 14:16 | disposition home or self-care (01) ==
LOC: HO.MRI 14:15
PROVIDERS: PCP Internal Medicine; Visit Provider Surgery
DX: N60.91 Unspecified benign mammary dysplasia of right breast (principal); D24.2 Benign neoplasm of left breast; Z91.89 Other specified personal risk factors, not elsewhere classified
CPT/HCPCS: 77049; A9585

== ENCOUNTER 2023-07-16 11:08 | Outpatient (AMB) | payer OTHER, SELFPAY ==
--- NOTE | 2023-07-16 11:39 | A.OFFVIS_ITS ---
Vital Signs 07/16/23 11:40 Height 5 ft 1 in Weight 159 lb 8 oz BMI 30.1 BP 145/91 H Blood Pressure Location Lt brachial Position Sitting Pulse 92 Intake Visit Reasons: MRI guided biopsy results (07/08/23 [facility]) Intake Note: Patient is seen in office for MRI guided biopsy results, following bilateral breast. 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 Mcmahon now returning following MR guided core biopsy performed at [facility].? She was evaluated by Dr. Cantor and started on tamoxifen for risk reduction.? Her Tyrer-Cuzick model lifetime risk of breast cancer was determined to be 31%.? As a result an MRI of the breast was obtained 11/28/2020.? This revealed a 6 mm enhancing mass in the 12 o'clock position, 9 cm from the nipple with mixed enhancement kinetics.? This was felt to be suspicious for abnormality (BI-RADS 4 left breast).? The right breast revealed only benign findings (BI-RADS 2).?MR guided core biopsy of the left breast was performed on 12/26/2020.? This revealed an intraductal papilloma.? She subsequent underwent a left breast lumpectomy with needle localization on 02/22/2021.? Pathology was benign and revealed no residual papilloma.? Her postop course was complicated by a postoperative hematoma requiring a visit to the emergency department.?? Her family history is significant for a paternal grandmother with breast cancer.? Menarche age 14, , menopause 53. Breast MRI performed on 05/15/2023 revealed indeterminate enhancing nodule in the 4 o'clock position of the right breast. This was felt to be suspicious for malignancy an MR guided biopsy was recommended. She returns today following MR guided biopsy at [facility] on 07/08/2023. This revealed benign breast tissue with no evidence of malignancy. Radiology recommends follow-up breast MRI in 6 months. A copy of the report was provided to Kelly. [facility] Medical History ASCUS of cervix with negative high risk HPV COVID-19 vaccine series completed Kidney stone Chronic idiopathic constipation Surgical History History of lumpectomy of left breast Hx of cystoscopy Hx of right breast biopsy Hx of section Hx of colonoscopy Family History Father CVD (cardiovascular disease) History of heart bypass surgery HTN (hypertension) Mother Endometrial cancer HTN (hypertension) Paternal Grandmother Breast cancer, Onset Age: 40 Maternal Grandfather Esophageal cancer Paternal Uncle Esophageal cancer Social History Household Members: Spouse Housing: House Are you a primary hospice care consultant to a significant other at home: No Do you presently have visiting nurse or other home services: No Alcohol intake: current Alcohol intake frequency: a few times a week Alcohol type: wine Patient Tobacco Use Status: Never used Tobacco service: No Current occupational status: employed Female Reproductive History Menstrual Age of Menarche: 14 Review of Systems Const All systems reviewed & are unremarkable except as noted in HPI and below Physical Exam Vital Signs: Last Vital Signs Pulse 92 07/16/23 11:40 BP 145/91 H 07/16/23 11:40 BMI result Body Mass Index 30.1 Const General: no acute distress Chest Other: Exam deferred Resp Effort & Inspection: normal respiratory effort Skin Other: Warm and dry Extrem Other: No edema Assessment & Plan Assessment & Plan (1) At high risk for breast cancer: Code(s): Z91.89 - Other specified personal risk factors, not elsewhere classified Category: Medical (2) Atypical ductal hyperplasia of right breast: Code(s): N60.91 - Unspecified benign mammary dysplasia of right breast Category: Medical (3) Abnormal MRI, breast: Code(s): R92.8 - Other abnormal and inconclusive findings on diagnostic imaging of breast Category: Medical Plan 50-year-old female patient with history of papilloma, atypical ductal h yperplasia, determined to be at high risk for breast cancer returning following MR guided biopsy. This revealed benign breast tissue. Follow-up MRI is recommended in 6 months. She is also scheduled for a follow-up annual mammogram in 10/31/2023. She will return following the MRI for routine breast examination. She is welcome to call sooner for any new concerns. Orders: Orders MR breast BI wo/w con 12/09/23 N60.91 - Unspecified benign mammary dysplasia of right breast, R92.8 - Other abnormal and inconclusive findings on diagnostic imaging of breast, Z91.89 - Other specified personal risk factors, not elsewhere classified Coding Level of Care Code Est Pt Level 3 (98064) Diagnoses At high risk for breast cancer Z91.89 Atypical ductal hyperplasia of right breast N60.91 Abnormal MRI, breast R92.8
[2023-07-16 11:40] VITALS: BP 145/91; PULSE 92; BMI 30.1
== END 2023-07-16 11:49 | disposition home or self-care (01) ==
PROVIDERS: PCP Internal Medicine; Visit Provider Surgery
DX: N60.91 Unspecified benign mammary dysplasia of right breast (principal); R92.8 Other abnormal and inconclusive findings on diagnostic imaging of breast; Z80.3 Family history of malignant neoplasm of breast
CPT/HCPCS: 99213

== ENCOUNTER → 2023-07-16 11:08 | Outpatient (BNVA) | payer OTHER, SELFPAY | PROVIDERS: PCP Internal Medicine; Visit Provider Surgery ==

== ENCOUNTER 2023-11-18 13:08 | Outpatient (REF) | payer BC, SELFPAY ==
--- NOTE | ~2023-11-18 | MM_ITS ---
EXAMINATION: MM SCREENING DIGITAL BREAST TOMOSYNTHESIS, BILATERAL CLINICAL INFORMATION: Screening. Asymptomatic. COMPARISON: Mammography: Comparison is made with available priors TECHNIQUE: Digital breast mammography with tomosynthesis is performed in both the craniocaudal and mediolateral oblique views along with computer-aided detection (CAD). FINDINGS: There are scattered areas of fibroglandular density (ACR BI-RADS breast composition Category b). Bilateral postsurgical changes are stable. There are no significant masses, abnormal calcifications, or other abnormalities. MM/MM tomosynthesis screening BI IMPRESSION: No mammographic evidence of malignancy. ASSESSMENT: BI-RADS BI-RADS 2 - Benign Findings RECOMMENDATION: Routine annual mammography screening. 1 year F/U This examination should not preclude the clinical evaluation of a suspicious palpable abnormality. This patient's information was entered into a reminder system with a target due date for their next mammogram. Electronically signed by: Rossy Garcia DO 11/18/2023 03:38 PM EDT
== END 2023-11-18 13:09 | disposition home or self-care (01) ==
LOC: HO.MAMMO 13:08
PROVIDERS: PCP Internal Medicine; Visit Provider Internal Medicine
DX: Z12.31 Encounter for screening mammogram for malignant neoplasm of breast (principal)
CPT/HCPCS: 77063; 77067

== ENCOUNTER → 2023-11-18 13:15 | Outpatient (BNV) | payer BC, SELFPAY | PROVIDERS: PCP Internal Medicine; Visit Provider Internal Medicine | DX: Z12.31 Encounter for screening mammogram for malignant neoplasm of breast (principal) | CPT/HCPCS: 77063; 77067 ==

== ENCOUNTER 2024-03-17 07:30 | Outpatient (REF) | payer BC, SELFPAY ==
[2024-03-17 10:42] LABS: MANUAL DIFF FLAG NO
[2024-03-17 10:59] LABS: Basophils Percent Auto 0.5 % (0-2); Eosinophils Absolute Auto 0.1 X10*3/uL (0.0-0.4); Eosinophils Percent Auto 1.5 % (0-4); Hematocrit 40.2 % (37.0-47.0); Hemoglobin 12.9 g/dl (12.0-16.0); Imm Gran Abs Auto 0.01 X10*3/uL (0.00-0.03); Imm Gran Pct Auto 0.2 % (0.0-0.4); Lymphocytes Absolute Auto 2.4 X10*3/uL (1.2-4.9); Lymphocytes Percent Auto 36.7 % (20-40); Mean Corpuscular HGB Conc 32.1 g/dl (31.0-35.0); Mean Corpuscular Hemoglobin 30.5 pg (27.0-33.0); Mean Platelet Volume 10.1 fL (9.4-12.3); Monocytes Absolute Auto 0.7 X10*3/uL (0.1-1.2); Monocytes Percent Auto 10.5 % (2-11); Neutrophils Absolute Auto 3.3 x10*3/uL (2.0-8.3); Neutrophils Percent Auto 50.6 % (45-73); Platelet Count 274 X10*3/uL (160-400); Red Blood Count 4.23 X10*6/uL (4.20-5.50); White Blood Count 6.6 X10*3/uL (4.8-10.8)
[2024-03-17 11:40] LABS: Estimated Average Glucose 123 mg/dL; Hemoglobin A1C 139.9673 umol/L; Hemoglobin A1c % 5.9 % (<6.0); Total Hemoglobin (HGBA1C) 3430.4838 umol/L
--- OUTSIDE RECORDS SUMMARY | 2024-03-17 11:47 | XMS_ITS ---
Author Organization Gerber Ivan MD Address [address] [place] [phone] Care Team Providers Care Food Order Expediter Name Role Phone Gerber Ivan Primary Care Provider Results Component Value Reference Range Notes Complete Blood Count Auto Di ff (Not yet reviewed by provider) Interpretation: Performing Lab:, [address] [place] [phone] Notes/Report: White Blood Count 6.6 4.8-10.8 X10*3/uL [...] X10*3/uL NRBC Abs Auto 0.000 0.0-0.012 X10*3/uL Hemoglobin A1c (Not yet revi ewed by provider) Interpretation: Performing Lab:, [address] [place] [phone] Notes/Report: Hemoglobin A1c % 5.9 <6.0 % [...] average glucose, using the formula of the V0T-Cmjzywa Average Glucose study (ADAG), Diabetes Care, Vol.31,#8, Sep. 2007 REASON FOR VISIT yearly fasting labs Encounters Encounter Location Date Provider Diagnosis Gerber Ivan MD [address] [place] [address] Drive [address] [place], [place] [phone] 03/17/2024 Gerber Ivan Blood tests for rout [...] deficiency (ICD-10 - E55.9) Plan Of Treatment Pending Test Test Name Order Date Complete Blood Count Auto Diff Comprehensive [place]. Panel Fast Lipid Panel 03/17/2024 Vitamin D 25-OH Total 03/17/2024 Microalbumin, Random 03/17/2024 Hemoglobin A1c 03/17/2024 Next Appt Details Provider Name:Gerber Morales ier, 03/24/2024 02:30:00 PM, [address], [address], [place], [place], [phone], Progress Notes * Kelly SAHA LDOB:[birth year] (59 yo F)Acc No.[id number]:03/17/2024 Progress Note Patient:?Kelly SAHA L Provider:?Gerber Ivan MD :1965???Age:59 Y???Sex:Female D ate:03/17/2024 Address:[address] [place], [place] [phone] Subjective: * Chief Complaints: * ???1. Yearly fasting labs. * Medical History:? Objective: * Vitals:? Assessment: * Assessment: 1.?Blood tests for routine g eneral physical examination - Z00.00 (Primary)???2.?Prediabetes - R73.09???3.?Pure hypercholesterolemia - E78.00???4.?Vitamin D deficiency - E55.9??? Plan: * Treatment: 2.?Prediabetes?LAB: Complete Blood Count Auto Diff (Collection Date & Time - 03/17/2024 07:30 AM) ?LAB: Comprehensive [place]. Panel Fast ?LAB: Lipid Panel ?LAB: Vitamin D 25-OH Total ?LAB: Microalbumin, Random ?LAB: Hemoglobin A1c (Collection Date & Time - 03/17/2024 07:30 AM) 3.?Pure hypercholesterolemia ?LAB: Complete Blood Count Auto Diff (Collection Date & Time - 03/17/2024 07:30 AM) ?LAB: Comprehensive [place]. Panel Fast ?LAB: Lipid Panel ?LAB: Vitamin D 25-OH Total ?LAB: Microalbumin, Random ?LAB: Hemoglobin A1c (Collection Date & Time - 03/17/2024 07:30 AM) 4.?Vitamin D deficiency?LAB: Complete Blood Count Auto Diff (Collection Date & Time - 03/17/2024 07:30 AM) ?LAB: Comprehensive [place]. Panel Fast ?LAB: Lipid Panel ?LAB: Vitamin D 25-OH Total ?LAB: Microalbumin, Random ?LAB: Hemoglobin A1c (Collection Date & Time - 03/17/2024 07:30 AM) * Procedure Codes:?89086 VENIP UNCT, ROUTINE* * * The named appointment provid er may or may not be the originator of this progress note, and it is not deemed complete until electronically signed by the appointment provider. Sign off status: Pending * Provider:?Gerber Ivan MD Date:?0 03/17/2024 Generated for Christine hunt/Andres/eTalinsmitting on:?03/17/2024 11:47 AM EST
--- OUTSIDE RECORDS SUMMARY | 2024-03-17 11:47 | XMS_ITS ---
Author Organization Gerber Ivan MD Address [address] [place] [phone] Care Team Providers Care Emergency Room Doctor Name Role Phone Gerber Ivan Primary Care Provider [phone] REASON FOR VISIT note for work Encounters Encounter Location Date Provider Diagnosis Gerber Ivan MD [address] [place] [phone] 10/14/2023 Gerber Ivan Plan Of Treatment Next Appt Details Provider Name:Gerber burris, 03/24/2024 02:30:00 PM, 10 [facility], [address], [phone], Progress Notes * Kelly SAHA LDOB:[birth year] (58 yo F)Acc No.[id number]:10/14/2023 Patient:?Georgina, Kelly Emmy :1965???Age:58 Y???Sex:Female Address:[address] [place] [phone] * true * Date:? Generated for Christine hunt/Andres/Gloriaitting on:?03/17/2024 11:47 AM EST
--- OUTSIDE RECORDS SUMMARY | 2024-03-17 11:48 | XMS_ITS | Patient Health Record ---
Author Organization Gerber Ivan MD Address [address] [place] [phone] Care Team Providers Care Design Engineer Products Name Role Phone Gerber Ivan Primary Care Provider Allergies No Known Allergies Results Component Value Reference Range Notes Complete Blood Count Auto Di ff (Not yet reviewed by provider) Interpretation: Performing Lab:[facility], [address] [place] [phone] Notes/Report: White Blood Count 6.6 4.8-10.8 X10*3/uL [...] 0.0-0.2 /100WBC Neutrophils Absolute Auto 3.3 2.0-8.3 x10*3/uL Imm Gran Abs Auto 0.01 0.00-0.03 X10*3/uL Lymphocytes Absolute Auto 2.4 1.2-4.9 X10*3/uL Monocytes Absolute Auto 0.7 0.1-1.2 X10*3/uL Eosinophils Absolute Auto 0.1 0.0-0.4 X10*3/uL Basophils Absolute Auto 0.0 0.0-0.2 X10*3/uL NRBC Abs Auto 0.000 0.0-0.012 X10*3/uL Hemoglobin A1c (Not yet revi ewed by provider) Interpretation: Performing Lab:[address] [phone] Notes/Report: Hemoglobin A1c % 5.9 <6.0 % [...] average glucose, using the formula of the C0N-[place]he[place] Average Glucose study (ADAG), Diabetes Care, Vol.31,#8, Sep. 2007 MR crandall BI wo/w con Reviewed date:05/24/2023 02:15:27 PM Interpretation: Performing Lab: Notes/Report: [address] [address] Magnetic Resonance Report Signed Patient: Kelly Amaya MR#: [id number] : 1965 Acct:[id number] Age/Sex: 58 / F ADM Date: 05/15/23 Loc: HO.MRI Attending Dr: Bertram Duke MD Ordering Physician: Bertram Duke MD Date of Service: 05/15/23 Procedure(s): MR breast BI wo/w con Accession Number(s): [id number] cc: Gerber Ivan MD; Bertram Duke MD EXAMINATION: MR BREAST WITHOUT AND WITH CONTRAST, BILATERAL CLINICAL INFORMATION: Personal history of bilateral excision for right breast atypia (2019) and left breast papilloma (2021). COMPARISON: Bilateral breast MRI 05/04/2022, 11/28/2020. TECHNIQUE: Imaging was performed with a dedicated breast coil. Prior to the administration of contrast, bilateral axial T1 and bilateral axial T2 weighted sequences were obtained. After the uneventful administration of?7 mL of Gadavist, dynamic contrast-enhanced VIBRANT series through the breasts in the axial plane were performed. Subtracted images were performed and reviewed. A delayed sagittal sequence through both breasts was acquired. Additionally, CAD post-processing, including maximum intensity projections, 3-D reconstructions and kinetic analysis, were performed an independent workstation and reviewed by the interpreting radiologist is a portion of this exam. FINDINGS: The patient's fibroglandular tissue demonstrates minimal background parenchymal enhancement. LEFT BREAST: There are postsurgical changes in the upper outer quadrant, middle to posterior depth with no suspicious mass-like enhancement. No suspicious mass-like or bjq-nodi-cthh enhancement. No abnormal skin thickening or nipple retraction. No abnormal architectural distortion. Review of the T2 weighted images demonstrates no fibrocystic changes or dilated ducts. Review of kinetic images reveals no additional findings. RIGHT BREAST: In the 4 o'clock position, 3 cm from the nipple (subtracted sequence image 76 of 106), there is a new T2 isointense, microlobulated, enhancing nodule measuring 0.6 cm, although enhancement kinetics are predominantly progressive in nature, the morphology of this finding is indeterminate. Subtle postsurgical scarring from prior excision is noted in the 8 o'clock position, posterior depth with no associated enhancement. There is no skin thickening or nipple retraction present. There is no suspicious internal mammary chain or axillary adenopathy. Limited views of the chest and abdomen are unremarkable. MR/MR breast BI wo/w con IMPRESSION: Indeterminate enhancing nodule in the 4 o'clock position of the right breast as above. ASSESSMENT: LEFT BREAST: BI-RADS 2, benign. RIGHT BREAST: BI-RADS 4, suspicious. RECOMMENDATIONS: MR-guided core biopsy of right breast enhancing nodule in the 4 o'clock position is recommended. Results were called to Justin Gilbert RN on 05/24/23. 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 COMPARISON: Bilateral breast MRI 05/04/2022, 11/28/2020. TECHNIQUE: Imaging was performe d with a dedicated breast coil. Prior to the administration of contrast, bilateral axial T1 and bilateral axial T2 weighted sequences w ere obtained. After the uneventful administration of?7 mL of Gadavist, dynamic contrast-enhanced VIBRANT series through the breasts in the axial plane were performed. Subtracted images were performed and review ed. A delayed sagittal sequence through both breasts was acquired . Additionally, CAD post-processing, including maximum intensity projections, 3-D reconstructions and kinetic analysis, were performed an independent workstation and reviewed by the interpreting radiologist is a portion of this exam. FINDINGS: The patient's fibroglandular tissue demonstrates minimal background parenchymal enhancement. LEFT BREAST: There a re postsurgical changes in the upper outer quadrant, middle to posterior depth with no suspicious mass-like enhancement. No suspicious mass-like or hli-ggca-fvwa enhancement. No abnormal skin thickening or nipple retraction. No abnormal architectural distortion. Review of the T2 weighted images demonstrates no fibrocystic adams es or dilated ducts. Review of kinetic images reveals no additiona l findings. RIGHT BREAST: In the 4 o'clock position, 3 cm from the nipple (subtracted sequence image 76 of 106), there is a new T2 isointense, microlobulated, enhancing nodule measuring 0.6 cm, although enhancement kinetics are predominantly progressive in nature, the morphology of this finding is indeterminate. Subtle postsurgical scarring from prior excision is noted in the 8 o'clock position, posterior depth with no associated enhanceme nt. There is no skin thickening or nipple retraction present. There is no suspicio us internal mammary chain or axillary adenopathy. Limited views of the chest and abdomen are unremarkable. MR/MR breast BI wo/w con IMPRESSION: Indeterminate enhanc ing nodule in the 4 o'clock position of the right breast as above. ASSESSMENT: LEFT BREAST: BI-RADS 2, benign. RIGHT BREAST: BI-RAD S 4, suspicious. RECOMMENDATIONS: MR-guided core biops y of right breast enhancing nodule in the 4 o'clock position is recommended. Results were called to Justin Gilbert RN on 05/24/23. Dictated By: Elyse Luo MD Signed By: <Electronically signed by Elyse Luo MD in OV> 05/24/23 1144 DD/ 1520 TD/TT: High [employer] Math Tutor: AMINA Complete Blood Count Auto Di ff Reviewed date:07/30/2023 04:27:08 PM Interpretation: Performing Lab:[facility], [address] [place] [phone] Notes/Report: White Blood Count 7.3 4.8-10.8 X10*3/uL Red Blood Count 4.07 4.20-5.50 X10*6/uL Hemoglobin 12.6 12.0-16.0 g/dl Hematocrit 37.6 37.0-47.0 % Mean Corpuscular Volume 92.4 80.0-98.0 fL Mean Corpuscular Hemoglobin 31.0 27.0-33.0 pg Mean Corpuscular HGB Conc 33.5 31.0-35.0 g/dl Red Cell Distribution Width 12.8 11.0-16.0 % Platelet Count 247 160-400 X10*3/uL Mean Platelet Volume 9.5 9.4-12.3 fL Neutrophils Percent Auto 54.2 45-73 % Imm Gran Pct Auto 0.3 0.0-0.4 % Lymphocytes Percent Auto 36.0 20-40 % Monocytes Percent Auto 8.4 2-11 % Eosinophils Percent Auto 0.8 0-4 % Basophils Percent Auto 0.3 0-2 % NRBC Pct Auto 0.0 0.0-0.2 /100WBC Neutrophils Absolute Auto 4.0 2.0-8.3 x10*3/uL Imm Gran Abs Auto 0.02 0.00-0.03 X10*3/uL Lymphocytes Absolute Auto 2.6 1.2-4.9 X10*3/uL Monocytes Absolute Auto 0.6 0.1-1.2 X10*3/uL Eosinophils Absolute Auto 0.1 0.0-0.4 X10*3/uL Basophils Absolute Auto 0.0 0.0-0.2 X10*3/uL NRBC Abs Auto 0.000 0.0-0.012 X10*3/uL Comprehensive Met. Panel Reviewed date:07/30/2023 04:28:29 PM Interpretation: Performing Lab:[facility], [address] [place] [phone] Notes/Report: Sodium 142 135-145 mmol/L Potassium 4.0 3.3-5.1 mmol/L Chloride 108 96-108 mmol/L Carbon Dioxide 26 22-29 mmol/L Anion Gap 12 12-20 Blood Urea Nitrogen 13 9-16 mg/dL Creatinine 0.70 0.5-1.4 mg/dL Creatinine Clr Calc Pharmacy 80.3 Provided height and weight: 154.94 cm, 73.6 kg. eGFR (calculated from the MDRD study equation) and eCrCl (calculated from the Cockcroft-Gault equation) are based on different parameters and may not yield comparable results. If eCrCl result is absurd, please check patient's height/weight. Estimated Glomerular Filt Rate > 60 NOTE: For -[place] individuals, multiply the result by 1.210. Chronic Kidney Disease: Estimated GFR < 60 mL/min/1.73m2 Severe Kidney Disease: Estimated GFR < 15 mL/min/1.73m2 Glucose Random 119 60-115 mg/dL Calcium 9.0 8.4-10.2 mg/dL Bilirubin Total 0.4 0.0-1.0 mg/dL Aspartate Amino Transferase 21 5-31 U/L Alanine Aminotransferase 20 0-31 U/L Total Protein 6.7 6.5-8.0 g/dL Albumin Level 4.2 3.5-5.0 g/dL Alkaline Phosphatase 50 39-117 U/L MM tomosynthesis screening B I Reviewed date:11/18/2023 05:48:24 PM Interpretation: Performing Lab: Notes/Report: [facility]'[address] [place] [address] Mammography Report Signed Patient: Kelly Amaya MR#: [id number] : 1965 Acct:[id number] Age/Sex: 58 / F ADM Date: 11/18/23 Loc: HO.MAMMO Attending Dr: Gerber Ivan MD Ordering Physician: Gerber Ivan MD Results: 2Be nign Findings Date of Service: 11/18/23 Follow Up: 1 Year From [facility] Mammogram Procedure(s): MM tomosynthesis screening BI Accession Number(s): [id number] cc: Gerber Ivan MD EXAMINATION: MM SCREENING DIGITAL BREAST TOMOSYNTHESIS, BILATERAL CLINICAL INFORMATION: Screening. Asymptomatic. COMPARISON: Mammography: Comparison is made with available priors TECHNIQUE: Digital breast mammography with tomosynthesis is performed in both the craniocaudal and mediolateral oblique views along with computer-aided detection (CAD). FINDINGS: There are scattered areas of fibroglandular density (ACR BI-RADS breast composition Category b). Bilateral postsurgical changes are stable. There are no significant masses, abnormal calcifications, or other abnormalities. MM/MM tomosynthesis screening BI IMPRESSION: No mammographic evidence of malignancy. ASSESSMENT: BI-RADS BI-RADS 2 - Benign Findings RECOMMENDATION: Routine annual mammography screening. 1 year F/U This examination should not preclude the clinical evaluation of a suspicious palpable abnormality. This patient's information was entered into a reminder system with a target due date for their next mammogram. Electronically signed by: Rossy Garcia DO 11/18/2023 03:38 PM EDT RP Dictated By: Rossy Garcia DO Signed By: <Electronically signed by Rossy Garcia DO in OV> 11/18/23 1538 DD/ 1315 TD/TT: 11/18/23 1339 High School Math Tutor: [facility] [address] [place], [place] [address] Mammography Report Signed Patient: Kelly Amaya MR#: [id number] : 1965 Acct:[id number] Age/Sex: 58 / F ADM Date: 11/18/23 Loc: HO.MAMMO Attending Dr: Gerber Ivan MD Ordering Physician: Gerber Ivan MD Results: 2Be nign Findings Date of Service: 11/18/23 Follow Up: 1 Year From Orig inal Mammogram Procedure(s): MM tomosynthesis screening BI Accession Number(s): [id number] cc: Gerber Ivan MD EXAMINATION: MM SCREENING DIGITAL BREAST TOMOSYNTHESIS, BILATERAL CLINICAL INFORMATION: Screening. Asymptomatic. COMPARISON: Mammography: Compari son is made with available priors TECHNIQUE: Digital breast mammography with tomosynthesis is performed in both the craniocaudal and mediolateral oblique views along with computer-aided detection (CAD). FINDINGS: There are scattered areas of fibroglandular density (ACR BI-RADS breast composition Category b). Bilateral postsurgic al changes are stable. There are no significant masses, abnormal calcifications, or other abnormalities. MM/MM tomosynthesis screening BI IMPRESSION: No mammographic evidence of malignancy. ASSESSMENT: BI-RADS BI-RADS 2 - Benign Findings RECOMMENDATION: Routine annual mammography screening. 1 year F/U This examination rajesh uld not preclude the clinical evaluation of a suspicious palpable abnormality. This patient's information was entered into a reminder system with a target due date for their next mammogram. Electronically mamta d by: Rossy Garcia DO 11/18/2023 03:38 PM EDT RP Dictated By: Rossy Garcia DO Signed By: <Electronically signed by Rossy Garcia DO in OV> 11/18/23 1538 DD/ 1315 TD/TT: 11/18/23 1339 High [employer] Math Tutor: Complete Blood Count Auto Di ff Reviewed date:02/14/2024 04:49:50 PM Interpretation: Performing Lab:[address] [phone] Notes/Report: White Blood Count 8.8 4.8-10.8 X10*3/uL Red Blood Count 3.96 4.20-5.50 X10*6/uL Hemoglobin 12.3 12.0-16.0 g/dl Hematocrit 37.0 37.0-47.0 % Mean Corpuscular Volume 93.4 80.0-98.0 fL Mean Corpuscular Hemoglobin 31.1 27.0-33.0 pg Mean Corpuscular HGB Conc 33.2 31.0-35.0 g/dl Red Cell Distribution Width 12.6 11.0-16.0 % Platelet Count 231 160-400 X10*3/uL Mean Platelet Volume 9.4 9.4-12.3 fL Neutrophils Percent Auto 55.3 45-73 % Imm Gran Pct Auto 0.5 0.0-0.4 % Lymphocytes Percent Auto 35.0 20-40 % Monocytes Percent Auto 8.0 2-11 % Eosinophils Percent Auto 0.7 0-4 % Basophils Percent Auto 0.5 0-2 % NRBC Pct Auto 0.0 0.0-0.2 /100WBC Neutrophils Absolute Auto 4.9 2.0-8.3 x10*3/uL Imm Gran Abs Auto 0.04 0.00-0.03 X10*3/uL Lymphocytes Absolute Auto 3.1 1.2-4.9 X10*3/uL Monocytes Absolute Auto 0.7 0.1-1.2 X10*3/uL Eosinophils Absolute Auto 0.1 0.0-0.4 X10*3/uL Basophils Absolute Auto 0.0 0.0-0.2 X10*3/uL NRBC Abs Auto 0.000 0.0-0.012 X10*3/uL Comprehensive Met. Panel Reviewed date:02/14/2024 02:56:30 PM Interpretation: Performing Lab:[facility], [address] [place] [phone] Notes/Report: Sodium 138 135-145 mmol/L Potassium 3.8 3.3-5.1 mmol/L Chloride 106 96-108 mmol/L Carbon Dioxide 23 22-29 mmol/L Anion Gap 13 12-20 Blood Urea Nitrogen 20 9-16 mg/dL Creatinine 0.59 0.5-1.4 mg/dL Creatinine Clr Calc Pharmacy 95.0 Provided height and weight: 154.94 cm, 73.2 kg. eGFR (calculated from the MDRD study equation) and eCrCl (calculated from the Cockcroft-Gault equation) are based on different parameters and may not yield comparable results. If eCrCl result is absurd, please check patient's height/weight. Estimated Glomerular Filt Rate > 60 Chronic Kidney Disease: Estimated GFR < 60 mL/min/1.73m2 Severe Kidney Disease: Estimated GFR < 15 mL/min/1.73m2 Glucose Random 105 60-115 mg/dL Calcium 8.6 8.4-10.2 mg/dL Bilirubin Total 0.5 0.0-1.0 mg/dL Aspartate Amino Transferase 28 5-31 U/L Alanine Aminotransferase 29 0-31 U/L Total Protein 6.5 6.5-8.0 g/dL Albumin Level 4.0 3.5-5.0 g/dL Alkaline Phosphatase 48 39-117 U/L Christa Whitfield Reviewed date:02/14/2024 02:56:44 PM Interpretation: Performing Lab:[facility], [address] [place] [phone] Notes/Report: Christa Whitfield See Note Specimen held untested for 24 hours; Call to request Chemistry testing. Reason For Referral No Information Medications Medication SIG (Take, Route, Frequency, Duration) [...] a day for 7 days 10/10/2023 Active Immunizations Vaccine Route Administration Date Status Comme nts Flu Vaccine IM Intramuscular 12/11/2010 Administered zFluzone Quadrivalent Unknown 12/14/2014 Administered Fluarix Quadrivalent IM Intramuscular 11/01/2016 Administe red Fluarix Quadrivalent IM Intramuscular 11/12/2017 Administe red Fluarix Quadrivalent IM Intramuscular 11/24/2018 Administe red Fluarix Quadrivalent Unknown 11/12/2019 Administered HM C Fluarix Quadrivalent Unknown 11/22/2020 Administered HM C SARS-COV-2 Pfizer Unknown 02/18/2020 Administered SARS-COV-2 Pfizer Unknown 03/10/2020 Administered SARS-COV-2 Pfizer Unknown 12/05/2020 Administered Fluarix Quadrivalent Unknown 11/22/2022 Administered HM C Social History Tobacco Use: Social History Observation Description Date Details (start date - stop date) Never Smoker NA - NA Tobacco Use/Smoking Question Answer Notes Patient is a nonsmoker Additional Findings: Tobacco Non-User Cu rrent non-smoker, currently using no form of tobacco Alcohol Screen Question Answer Notes Did you have a drink contain ing alcohol in the past year? Yes How often did you have a dri nk containing alcohol in the past year? 4 or more times a week (4 points) How many drinks did you have on a typical day when you were drinking in the past year? 1 or 2 drinks (0 point) How often did you have 6 or more drinks on one occasion in the past year? Never (0 point) Points 4 Interpretation Positive Problems Problem Type SNOMED Code ICD Code Onset Dates Problem Status W/U Status Risk Notes Problem 58973606 Vitamin D defici ency (E55.9) Active confirmed Problem 589028988 Body mass index (BMI) 30.0-30.9, adult (Z68.30) Active confirmed Problem 50247013 Kidney stone (N20.0) Active confirmed Problem 3267659 Prediabetes (R73.09) Active confirmed Problem 02756056 Kidney stones (N20.0) Active confirmed Problem 32997579 Elevated BP (I10) Active confirmed Problem 826483592 Pure hypercholesterolemia (E78.00) Active confirmed Problem 90266621 Irritable bowel syndrome with both 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) Active confirmed Problem 122832026 Abnormal mammogr am of both breasts (R92.8) Active confirmed Problem 079548228 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) Active confirmed Vital Signs Blood pressure diastolic 70 mm Hg 10/10/2023 Height 62 in 10/10/2023 Blood pressure systolic 124 mm Hg 10/10/2023 Weight 160 lbs 10/10/2023 BMI 29.26 kg/m2 10/10/2023 Encounters Encounter Location Date Provider Diagnosis Gerber Ivan MD [address] [place] [phone] 03/17/2024 Gerber Ivan Blood tests for rout ine general physical examination Z00.00 ; Prediabetes R73.09 ; Pure hypercholesterolemia E78.00 and Vitamin D deficiency E55.9 Gerber Ivan MD [address] [place] [phone] 10/10/2023 Gerber Ivan Herpes zoster withou t complication B02.9 Gerber Ivan MD [address] [place] [address] Drive [address] [place] [phone] 10/14/2023 Gerber Ivan Assessments Encounter Date Diagnosis (ICD Code) Assessment Notes Treatment Notes Treatment Clinical Notes Section Notes 03/17/2024 Blood tests for rout ine general physical examination (ICD-10 - Z00.00) 10/10/2023 Herpes zoster withou t complication (ICD-10 - B02.9) patient verbalized understanding of mediction and directions for use 03/17/2024 Prediabetes (ICD-10 - R73.09) 03/17/2024 Pure hypercholesterolemia (ICD-10 - E78.00) 03/17/2024 Vitamin D deficiency (ICD-10 - E55.9) Plan Of Treatment Pending Test Test Name Order Date Electrocardiogram (EKG) 02/25/2015 Electrocardiogram (EKG) 12/21/2010 CT ABD & PELVIS NO CONTRAST 12/10/2019 CT ABD & PELVIS WWO CONTRAST 12/15/2019 Complete Blood Count Auto Diff Comprehensive [place]. Panel Fast 5 Lipid Panel 03/17/2024 Vitamin D 25-OH Total 03/17/2024 Microalbumin, Random 03/17/2024 Hemoglobin A1c 03/17/2024 Next Appt Details Provider Name:Gerber Morales ier, 03/24/2024 02:30:00 PM, [address], Suite [facility], [place], [place], [phone], Insurance Providers Payer Name Payer Address Payer Phone Subscriber Number Group Number Insured Name Patient Relationship to Insured Coverage Start Date Coverage End Date [employer] [address] [place], [place] [phone] [id number] Kelly Amaya Self - patient is the insured Medical (General) History Medical History History ICD Code Colonoscopy 08/08/15 - Dr. Keila Espinosa h - repeat 10 years Surgical History Surgery Date(Month/Year) RT Breast Biopsy w/Needle Localization b y Dr. Doreen Mcmahon 11/2018
--- OUTSIDE RECORDS SUMMARY | 2024-03-17 11:48 | XMS_ITS ---
Author Organization Gerber Ivan MD Address [address] [place] [phone] Care Team Providers Care Solar Project Engineer Name Role Phone Gerber Ivan Primary Care [...] Location Date Provider Diagnosis Gerber Ivan MD [address] [place] [address] Drive [address] [place], [place] [phone] 10/10/2023 Gerber Ivan Herpes zoster withou t [...] for use Next Appt Details Provider Name:Gerber Morales ier, 03/24/2024 02:30:00 PM, [address] [place] [address], [address], [place], [place], [phone], Progress Notes * Kelly SAHA LDOB:[birth year] (58 yo F)Acc No.[id number]:10/10/2023 Progress Notes Patient:?Kelly Saha L Provider:?Gerber Ivan MD :1965???Age:58 Y???Sex:Female D ate:10/10/2023 Address:[address] [place], [place] [phone] Subjective: * Chief Complaints: * ? shingles left side of b ack x 3days * HPI: ???Symptom(s):? patient is a 58 yo femalehad covid beginning of month. 4days ago started with pain and now with a rash, left side of back. * ROS:?General/Constitutional:?Denies?Chills.?Denies?Fatigue.?Denies?Fever.?Denies?Headache.?ENT:?Patient denies?decreased sense of smell , any loss of taste , sore throat.?Denies?Sore throat.?Respiratory:?Denies?Cough.?Denies?Shortness of breath at rest.?Denies?Shortness of breath with exertion.?Musculoskeletal:?Patient denies?muscle aches.?Peripheral Vascular:?Patient denies?red and blue toes.? * Medical History:? * Surgical History:? * Hospitalization/Major Diagno stic Procedure:? * Medications:?TakingClaritin 10 MG Tablet 1 tablet Orally Once [...] and reconciled with the patient Objective: * Vitals:?Ht: 62, Wt:160, BMI: 29.26, BP:124/70. * Examination: ???General Examination: ?GENERAL APPEARANCE:? well developed, well nourished.?SKIN:? abnormal with lesions on back conistant with shingles.? Assessment: * Assessment: 1.?Herpes zoster without com plication - B02.9 (Primary)? Plan: * Treatment: * Procedure Codes:? * * Sign off status: Completed true * Provider:?Gerber Ivan MD Date:?0 10/10/2023 Generated for Christine hunt/Andres/Iraj on:?03/17/2024 11:47 AM EST History and Physical Notes * HPI (History [...]
[2024-03-17 11:52] LABS: Alanine Aminotransferase 32 U/L (0-31); Albumin Level 4.2 g/dL (3.5-5.0); Anion Gap 12 (12-20); Aspartate Amino Transferase 36 U/L (5-31); Bilirubin Total 0.6 mg/dL (0.0-1.0); Blood Urea Nitrogen 17 mg/dL (9-16); Calcium 8.6 mg/dL (8.4-10.2); Carbon Dioxide 24 mmol/L (22-29); Chloride 107 mmol/L (96-108); Estimated Glomerular Filt Rate > 60; Glucose Fasting 114 mg/dL (60-99); Potassium 4.2 mmol/L (3.3-5.1); Sodium 139 mmol/L (135-145)
[2024-03-17 11:53] LABS: Alkaline Phosphatase 50 U/L (39-117); Cholesterol 192 mg/dL (<200); HDL Cholesterol 54 mg/dL (>40); LDL Cholesterol Calculated 117 mg/dL (<100); Triglycerides 107 mg/dL (<150); Vitamin D 25-OH Total 53.6 ng/mL (>30)
[2024-03-17 14:29] LABS: Creatinine Urine 99.27 mg/dL; Microalbum/Creatinine Ratio Ur 17.1 ug/mg cr (<30)
== END 2024-03-17 07:31 | disposition home or self-care (01) ==
LOC: HO.LNP 07:30
PROVIDERS: Visit Provider Internal Medicine
DX: Z00.00 Encounter for general adult medical examination without abnormal findings (principal); R73.09 Other abnormal glucose; E55.9 Vitamin D deficiency, unspecified
CPT/HCPCS: 80053; 80061; 82043; 82306; 82570; 83036; 85025

== ENCOUNTER 2024-03-20 11:33 | Outpatient (AMB) | payer BC, SELFPAY ==
--- NOTE | 2024-03-20 11:35 | MHC.OFFVIS ---
Vital Signs 03/20/24 11:42 Height 5 ft 1 in Weight 159 lb BMI 30.0 BP 151/89 H Blood Pressure Location Lt brachial Position Sitting Pulse 75 Intake Visit Reasons: MRI resutls @ [place], breast Intake Note: Patient is seen in office for MRI results, following breast. Pt c/o:denies any concerns regarding the breast, here for MRI results MRI:03/07/24 ([place]) [facility] Machine Operator Required: No Accompanied by: Self / Same As Patient Allergies No Known Allergies Allergy (Verified 03/20/24 11:44) Medication List - Last Reconciled 03/20/24 by Bertram Duke MD evening primrose oil 500 mg PO DAILY loratadine 10 mg PO DAILY magnesium 30 mg PO DAILY tamoxifen 20 mg PO DAILY HPI Comments Details: 59-year-old female patient with prior history of right breast atypical ductal hyperplasia status post lumpectomy with needle localization on 11/19/[address] Mcmahon.? She was evaluated by Dr. Cantor and started on tamoxifen for risk reduction.? Her Tyrer-Cuzick model lifetime risk of breast cancer was determined to be 31%.? She was placed on a high risk protocol with annual mammogram and breast MRIs alternating every 6 months. As a result an MRI of the breast was obtained 11/28/2020 revealed a 6 mm enhancing mass in the 12 o'clock position, 9 cm from the nipple with mixed enhancement kinetics.? This was felt to be suspicious (BI-RADS 4 left breast. BI-RADS 2 right breast).?MR guided core biopsy of the left breast was performed on 12/26/2020.? This revealed an intraductal papilloma.? She subsequent underwent a left breast lumpectomy with needle localization on 02/22/2021.? Pathology was benign and revealed no residual papilloma.? Her postop course was complicated by a postoperative hematoma requiring a visit to the emergency department.?? Her family history is significant for a paternal grandmother with breast cancer.? Menarche age 14, , menopause 53. Breast MRI performed on 05/15/2023 revealed an indeterminate enhancing nodule at the 4 o'clock position of the right breast. MR guided core biopsy of this lesion on 07/08/2023 revealed benign breast tissue with no evidence of malignancy. She returns today following a six-month follow-up MRI performed at [facility]. This revealed no MR specific evidence of malignancy in either breast (BI-RADS 2). Follow-up MRI in 1 year is recommended. Her most recent mammogram of 11/18/2023 revealed no mammographic evidence of malignancy (BI-RADS 2). She feels well and denies any ongoing breast symptoms. [facility] Medical History ASCUS of cervix with negative high risk HPV COVID-19 vaccine series completed Kidney stone Chronic idiopathic constipation Surgical History History of lumpectomy of left breast Hx of cystoscopy Hx of right breast biopsy Hx of section Hx of colonoscopy Family History Father CVD (cardiovascular disease) History of heart bypass surgery HTN (hypertension) Mother Endometrial cancer HTN (hypertension) Paternal Grandmother Breast cancer, Onset Age: 40 Maternal Grandfather Esophageal cancer Paternal Uncle Esophageal cancer Social History Household Members: Spouse Housing: House Are you a primary primary health care nurse to a significant other at home: No Do you presently have visiting nurse or other home services: No Alcohol intake: current Alcohol intake frequency: a few times a week Alcohol type: wine Patient Tobacco Use Status: Never used Tobacco service: No Current occupational status: employed Female Reproductive History Menstrual Age of Menarche: 14 Review of Systems Const All systems reviewed & are unremarkable except as noted in HPI and below Physical Exam Vital Signs: Last Vital Signs Pulse 75 03/20/24 11:42 BP 151/89 H 03/20/24 11:42 BMI result Body Mass Index 30.0 Const General: comfortable, well developed and alert Nutritional Appearance: well nourished Orientation/consciousness: patient oriented x3 Limitations: no limitations Chest Other: Left breast: No new skin change, no nipple retraction, no nipple discharge, no palpable mass, no enlarged lymph nodes. Right breast: No new skin change, no nipple retraction, no nipple discharge, no palpable mass, no enlarged lymph nodes Resp Other: Breathing comfortably on room air, no respiratory distress Effort & Inspection: normal respiratory effort Skin Other: Warm, dry, no rashes Neuro Other: Mobility Assessment: 1. 3 meter assessment time (seconds): 5 2. Gait observations: Normal balance and gait General: patient oriented x3 Extrem Other: No edema in the left upper extremity. Assessment & Plan Assessment & Plan (1) At high risk for breast cancer: Code(s): Z91.89 - Other specified personal risk factors, not elsewhere classified Category: Medical (2) Atypical ductal hyperplasia of right breast: Code(s): N60.91 - Unspecified benign mammary dysplasia of right breast Category: Medical Plan 59-year-old female patient determined to be at high risk for breast cancer with a history of atypical ductal hyperplasia of the right breast. She continues on the high risk protocol with alternating mammogram and breast MRIs every 6 months. Her most recent mammogram of 11/18/2023 revealed no mammographic evidence of malignancy (BI-RADS 2). A six-month follow-up breast MRI performed on 03/07/2024 revealed no MR specific evidence of malignancy (BI-RADS 2). Examination today revealed no suspicious findings in either breast and no enlarged lymph nodes. She will follow-up in approximately 6 months and we will continue her annual breast MRI and mammograms. She is welcome to return sooner p.r.n.. Orders: Orders MM screening mammo BI 11/17/24 N60.91 - Unspecified benign mammary dysplasia of right breast, Z91.89 - Other specified personal risk factors, not elsewhere classified MR breast BI wo/w con 03/08/25 N60.91 - Unspecified benign mammary dysplasia of right breast, Z91.89 - Other specified personal risk factors, not elsewhere classified Coding Level of Care Code Est Pt Level 3 (98131) Diagnoses At high risk for breast cancer Z91.89 Atypical ductal hyperplasia of right breast N60.91
[2024-03-20 11:42] VITALS: BP 151/89; PULSE 75
== END 2024-03-20 12:02 | disposition home or self-care (01) ==
PROVIDERS: PCP Internal Medicine; Visit Provider Surgery
DX: Z91.89 Other specified personal risk factors, not elsewhere classified (principal); N60.91 Unspecified benign mammary dysplasia of right breast
CPT/HCPCS: 99213

== ENCOUNTER → 2024-03-20 11:33 | Outpatient (BNVA) | payer BC, SELFPAY | PROVIDERS: PCP Internal Medicine; Visit Provider Surgery ==

== ENCOUNTER 2024-03-31 08:06 | Outpatient (REF) | payer BC, SELFPAY | END 2024-03-31 08:07 | disposition home or self-care (01) | LOC: HO.LNP 08:06 | PROVIDERS: PCP Internal Medicine; Visit Provider Surgery | DX: D23.9 Other benign neoplasm of skin, unspecified (principal) | CPT/HCPCS: 11401; 88304; 88305 ==

== ENCOUNTER 2024-03-31 08:06 | Outpatient (AMB) | payer BC, SELFPAY ==
--- OUTSIDE RECORDS SUMMARY | 2024-03-31 08:10 | XMS_ITS ---
Author Organization Gerber Ivan MD Address [address] [place] [phone] Care Team Providers Care Outside Sales Name Role Phone Gerber Ivan Primary Care Provider [phone] Results Component Value Reference Range Notes Complete Blood Count Auto Di ff Reviewed date:03/17/2024 01:27:38 PM Interpretation: Performing Lab:[facility], [address] [place] [id number] Notes/Report: White Blood Count 6.6 4.8-10.8 X10*3/uL [...] NRBC Abs Auto 0.000 0.0-0.012 X10*3/uL Comprehensive [place]. Panel Fa st Reviewed date:03/17/2024 04:32:37 PM Interpretation: Performing Lab:[facility], [address] [place] [phone] Notes/Report: Sodium 139 135-145 mmol/L Potassium 4.2 [...] Panel Reviewed date:03/17/2024 12:47:40 PM Interpretation: Performing Lab:[address] [phone] Notes/Report: Triglycerides 107 <150 mg/dL Desirable Triglyceride: [...] Total Reviewed date:03/17/2024 12:47:54 PM Interpretation: Performing Lab:[address] [phone] Notes/Report: Vitamin D 25-OH Total 53.6 >30 [...] Random Reviewed date:03/17/2024 04:30:37 PM Interpretation: Performing Lab:[address] [phone] Notes/Report: Creatinine Urine 99.27 Microalbumin Urine 17.0 Microalbum/Creatinine Ratio Ur 17.1 <30 ug/mg cr Albumin/Creatinine Ratio Reference Ranges: Normal: < 30 ug/mg creatinine Microalbuminuria: 30 - 300 ug/mg creatinine Clinical Albuminuria: > 300 ug/mg creatinine Hemoglobin A1c Reviewed date:03/17/2024 12:40:35 PM Interpretation: Performing Lab:[facility], [address] [place] [phone] Notes/Report: Hemoglobin A1c % 5.9 <6.0 % [...] average glucose, using the formula of the D7A-Qqklkdg Average Glucose study (ADAG), Diabetes Care, Vol.31,#8, Sep. 2007 REASON FOR VISIT yearly fasting labs Encounters Encounter Location Date Provider Diagnosis Gerber Ivan MD [address] [place] [address] [place] [phone] 03/17/2024 Gerber Ivan Blood tests for rout [...] Details Provider Name:Gerber burris, 03/23/2025 07:30:00 AM, [address] [place] [address], [address] [place] [address], [phone], Provider Name:Gerber burris, 03/30/2025 02:30:00 PM, [address] [place] [address], [address] [place] [address], [phone], Progress Notes * Kelly SAHA LDOB:[birth year] (59 yo F)Acc No.[id number]:03/17/2024 Progress Note Patient:?Kelly SAHA Provider:?Gerber Ivan MD :1965???Age:59 Y???Sex:Female D ate:03/17/2024 Address:[address] [place], [place] [phone] Subjective: * Chief Complaints: * ???1. Yearly fasting labs. * Medical History:? Objective: * Vitals:? Assessment: * Assessment: 1.?Blood tests for routine g eneral physical examination - Z00.00 (Primary)???2.?Prediabetes - R73.09???3.?Pure hypercholesterolemia - E78.00???4.?Vitamin D deficiency - E55.9??? Plan: * Treatment: 2.?Prediabetes?LAB: Complete Blood Count Auto Diff (Collection Date & Time - 03/17/2024 07:30 AM) ?LAB: Comprehensive [place]. Panel Fast (Collection Date & Time - 03/17/2024 07:30 AM) ?LAB: Lipid Panel (Collection Date & Time - 03/17/2024 07:30 AM) ?LAB: Vitamin D 25-OH Total (Collection Date & Time - 03/17/2024 07:30 AM) ?LAB: Microalbumin, Random (Collection Date & Time - 03/17/2024 07:30 AM) ?LAB: Hemoglobin A1c (Collection Date & Time - 03/17/2024 07:30 AM) 3.?Pure hypercholesterolemia ?LAB: Complete Blood Count Auto Diff (Collection Date & Time - 03/17/2024 07:30 AM) ?LAB: Comprehensive [place]. Panel Fast (Collection Date & Time - 03/17/2024 07:30 AM) ?LAB: Lipid Panel (Collection Date & Time - 03/17/2024 07:30 AM) ?LAB: Vitamin D 25-OH Total (Collection Date & Time - 03/17/2024 07:30 AM) ?LAB: Microalbumin, Random (Collection Date & Time - 03/17/2024 07:30 AM) ?LAB: Hemoglobin A1c (Collection Date & Time - 03/17/2024 07:30 AM) 4.?Vitamin D deficiency?LAB: Complete Blood Count Auto Diff (Collection Date & Time - 03/17/2024 07:30 AM) ?LAB: Comprehensive [place]. Panel Fast (Collection Date & Time - 03/17/2024 07:30 AM) ?LAB: Lipid Panel (Collection Date & Time - 03/17/2024 07:30 AM) ?LAB: Vitamin D 25-OH Total (Collection Date & Time - 03/17/2024 07:30 AM) ?LAB: Microalbumin, Random (Collection Date & Time - 03/17/2024 07:30 AM) ?LAB: Hemoglobin A1c (Collection Date & Time - 03/17/2024 07:30 AM) * Procedure Codes:?40139 VENIP UNCT, ROUTINE* * * The named appointment provid er may or may not be the originator of this progress note, and it is not deemed complete until electronically signed by the appointment provider. Sign off status: Pending * Provider:?Gerber Ivan MD Date:?0 03/17/2024 Generated for Christine hunt/Andres/Gloriaitting on:?03/31/2024 08:10 AM EST
--- OUTSIDE RECORDS SUMMARY | 2024-03-31 08:10 | XMS_ITS | Patient Health Record ---
Author Organization Gerber Ivan MD Address [address] [place] [phone] Care Team Providers Care Hospice Registered Nurse Name Role Phone Gerber Ivan Primary Care Provider [phone] Allergies No Known Allergies Results Component Value Reference Range Notes Complete Blood Count Auto Di ff Reviewed date:03/17/2024 01:27:38 PM Interpretation: Performing Lab:[facility], [address] [place] [phone] Notes/Report: White Blood Count 6.6 4.8-10.8 X10*3/uL [...] NRBC Abs Auto 0.000 0.0-0.012 X10*3/uL Comprehensive [place]. Panel Fa st Reviewed date:03/17/2024 04:32:37 PM Interpretation: Performing Lab:[facility], [address] [place] [phone] Notes/Report: Sodium 139 135-145 mmol/L Potassium 4.2 [...] Panel Reviewed date:03/17/2024 12:47:40 PM Interpretation: Performing Lab:[facility], [address] [place] [phone] Notes/Report: Triglycerides 107 <150 mg/dL Desirable Triglyceride: [...] Total Reviewed date:03/17/2024 12:47:54 PM Interpretation: Performing Lab:[facility], [address] [place] [phone] Notes/Report: Vitamin D 25-OH Total 53.6 >30 [...] Random Reviewed date:03/17/2024 04:30:37 PM Interpretation: Performing Lab:[facility], [address] [place] [phone] Notes/Report: Creatinine Urine 99.27 Microalbumin Urine 17.0 Microalbum/Creatinine Ratio Ur 17.1 <30 ug/mg cr Albumin/Creatinine Ratio Reference Ranges: Normal: < 30 ug/mg creatinine Microalbuminuria: 30 - 300 ug/mg creatinine Clinical Albuminuria: > 300 ug/mg creatinine Hemoglobin A1c Reviewed date:03/17/2024 12:40:35 PM Interpretation: Performing Lab:[facility], [address] [place] [phone] Notes/Report: Hemoglobin A1c % 5.9 <6.0 % [...] average glucose, using the formula of the U6X-Xpidfjd Average Glucose study (ADAG), Diabetes Care, Vol.31,#8, Sep. 2007 MR breast BI wo/w con Reviewed date:05/24/2023 02:15:27 PM Interpretation: Performing Lab: Notes/Report: [address] [address] Magnetic Resonance Report Signed Patient: Kelly Amaya MR#: [id number] : 1965 Acct:[id number] Age/Sex: 58 / F ADM Date: 05/15/23 Loc: .MRI Attending Dr: Bertram Duke MD Ordering Physician: Bertram Duke MD Date of Service: 05/15/23 Procedure(s): MR breast BI wo/w con Accession Number(s): [id number] cc: Gerber Ivan MD; Bertram Duke MD [...] suspicious mass-like enhancement. No suspicious mass-like or pgz-aczo-axpx enhancement. No abnormal skin thickening or nipple [...] in OV> 05/24/23 1144 DD/ 1520 TD/TT: Clinical Safety Specialist: AMINA [address] [address] Magnetic Resonance Report Signed Patient: Kelly Amaya MR#: [id number] : 1965 Acct:[id number] Age/Sex: 58 / F ADM Date: 05/15/23 Loc: HO.MRI Attending Dr: Bertram Duke MD Ordering Physician: Bertram Duke MD Date of Service: 05/15/23 Procedure(s): MR dov wright BI wo/w con Accession Number(s): [id number] cc: Gerber Ivan MD; Bertram Duke MD [...] suspicious mass-like enhancement. No suspicious mass-like or huy-cboz-yybi enhancement. No abnormal skin thickening or nipple [...] in OV> 05/24/23 1144 DD/ 1520 TD/TT: Clinical Safety Specialist: AMINA Complete Blood Count Auto Di ff Reviewed date:07/30/2023 04:27:08 PM Interpretation: Performing Lab:[facility], [address] [place] [phone] Notes/Report: White Blood Count 7.3 4.8-10.8 X10*3/uL [...] Panel Reviewed date:07/30/2023 04:28:29 PM Interpretation: Performing Lab:[facility], [address] [place] [phone] Notes/Report: Sodium 142 135-145 mmol/L Potassium 4.0 [...] Glomerular Filt Rate > 60 NOTE: For -Cymro individuals, multiply the result by 1.210. Chronic [...] date:11/18/2023 05:48:24 PM Interpretation: Performing Lab: Notes/Report: [address] [place] [address] Mammography Report Signed Patient: Kelly Amaya MR#: [id number] : 1965 Acct:[id number] Age/Sex: 58 / F ADM Date: 11/18/23 Loc: ANNYO Attending Dr: Gerber Ivan MD Ordering Physician: Gerber Ivan MD Results: 2Be nign Findings Date of Service: 11/18/23 Follow Up: 1 Year From Orig ina Mammogram Procedure(s): MM tomosynthesis screening BI Accession Number(s): [id number] cc: eGrber Ivan MD EXAMINATION: MM SCREENING DIGITAL BREAST [...] Rossy Garcia DO 11/18/2023 03:38 PM EDT Dictated By: Rossy Garcia DO Signed By: <Electronically signed by Rossy Garcia DO in OV> 11/18/23 1538 DD/ 1315 TD/TT: 11/18/23 1339 Clinical Safety Specialist: [facility] [address] [place], [place] [address] Mammography Report Signed Patient: Kelly Amaya MR#: [id number] : 1965 Acct:[id number] Age/Sex: 58 / F ADM Date: 11/18/23 Loc: MAMMO Attending Dr: Gerber Ivan MD Ordering Physician: Gerber Ivan MD Results: 2Be nign Findings Date of Service: 11/18/23 Follow Up: 1 Year From Orig inal Mammogram Procedure(s): MM tomosynthesis screening BI Accession Number(s): [id number] cc: Gerber Ivan MD EXAMINATION: MM SCREENING [...] Rossy Garcia DO 11/18/2023 03:38 PM EDT Dictated By: Rossy Garcia DO Signed By: <Electronically signed by Rossy Garcia DO in OV> 11/18/23 1538 DD/ 1315 TD/TT: 11/18/23 1339 Clinical Safety Specialist: Complete Blood Count Auto Di ff Reviewed date:02/14/2024 04:49:50 PM Interpretation: Performing Lab:[facility], [address] [place] [phone] Notes/Report: White Blood Count 8.8 4.8-10.8 X10*3/uL [...] Panel Reviewed date:02/14/2024 02:56:30 PM Interpretation: Performing Lab:[facility], [address] [place] [phone] Notes/Report: Sodium 138 135-145 mmol/L Potassium 3.8 [...] 3.5-5.0 g/dL Alkaline Phosphatase 48 39-117 U/L Hold Gold Reviewed date:02/14/2024 02:56:44 PM Interpretation: Performing Lab:[facility], [address] [place] [phone] Notes/Report: Hold Gold See Note Specimen held untested for 24 hours; Call to request Chemistry testing. Reason For Referral Reason skin tag middle [...] Referral Priority Routine Referral Appointment Date 03/31/2024 Medications Medication SIG (Take, Route, Frequency, Duration) [...] Orally O nce a day 11/28/2018 Active Immunizations Vaccine Route Administration Date Status [...] Problem Status W/U Status Risk Notes Problem 40248672 Vitamin D defici ency (E55.9) Active confirmed Problem 137042814 Body mass index (BMI) 30.0-30.9, adult (Z68.30) Active confirmed Problem 98769799 Kidney stone (N20.0) Active confirmed Problem 1351729 Prediabetes (R73.09) Active confirmed Problem 59011090 Kidney stones (N20.0) Active confirmed Problem 24731432 Elevated BP (I10) Active confirmed Problem 752770220 Pure hypercholesterolemia (E78.00) Active confirmed Problem 50052536 Irritable bowel syndrome with both 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) Active confirmed Problem 361887758 Abnormal mammogr am of both breasts (R92.8) Active confirmed Problem 060737873 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) Active confirmed Vital Signs Blood pressure diastolic 76 mm Hg 03/24/2024 naomie ght is down 2 pounds since 10-10-23 Height 62 in 03/24/2024 weight is down 2 pounds since 10-10-23 Blood pressure systolic 122 mm Hg 03/24/2024 ninfa ht is down 2 pounds since 10-10-23 Weight 158 lbs 03/24/2024 weight is down 2 pounds since 10-10-23 BMI 28.9 kg/m2 03/24/2024 weight is down 2 pounds since 10-10-23 Encounters Encounter Location Date Provider Diagnosis Gerber Ivan MD [address] [place] [address] Drive [address] [place] [phone] 03/17/2024 Gerber Ivan Blood tests for rout ine general physical examination Z00.00 ; Prediabetes R73.09 ; Pure hypercholesterolemia E78.00 and Vitamin D deficiency E55.9 Gerber Ivan MD [address] [place] [address] [address] [phone] 10/10/2023 Gerber Ivan Herpes zoster withou t complication B02.9 Gerber Ivan MD [address] [place] [address] [address] [phone] 03/24/2024 Gerber Ivan Annual physical exam Z00.00 ; Elevated BP I10 ; Venous olmstead R23.8 ; Pure hypercholesterolemia E78.00 ; Prediabetes R73.09 ; Vitamin D deficiency E55.9 ; Irritable bowel syndrome with both constipation and diarrhea K58.2 and Depression screening Z13.31 Gerber Ivan MD [address] [place] [address] Drive [address] [place] [phone] 10/14/2023 Gerber Ivan Assessments Encounter Date Diagnosis (ICD Code) Assessment Notes Treatment Notes Treatment Clinical Notes Section Notes 03/17/2024 [address] tests for rout ine general physical examination (ICD-10 - Z00.00) 10/10/2023 Herpes zoster withou t complication (ICD-10 - B02.9) patient verbalized understanding of mediction and directions for use 03/24/2024 Annual physical exam (ICD-10 - Z00.00) labs reviewed and discussed with patient 03/24/2024 Elevated BP (ICD-10 - I10) doing well, will contnue current regiment and will continue to monitor 03/17/2024 Prediabetes (ICD-10 - R73.09) 03/24/2024 Venous olmstead (ICD-10 - R23.8) observaition. if it gets bigger can treat with laser for cosmetic purpases 03/17/2024 Pure hypercholesterolemia (ICD-10 - E78.00) 03/24/2024 Pure hypercholesterolemia (ICD-10 - E78.00) stable, will continue current regiment 03/17/2024 Vitamin D deficiency (ICD-10 - E55.9) 03/24/2024 Prediabetes (ICD-10 - R73.09) stable, no need for medication at his time 03/24/2024 Vitamin D deficiency (ICD-10 - E55.9) stable, will continue current regiment 03/24/2024 Irritable bowel syndrome with both constipation and diarrhea (ICD-10 - K58.2) 03/24/2024 Depression screening (ICD-10 - Z13.31) negative screen Plan Of Treatment Pending Test Test Name Order Date Electrocardiogram (EKG) 12/21/2010 Electrocardiogram (EKG) 02/25/2015 CT ABD & PELVIS NO CONTRAST 12/10/2019 CT ABD & PELVIS WWO CONTRAST 12/15/2019 Next Appt Details Provider Name:Gerber Morales ier, 03/23/2025 07:30:00 AM, [address] [place] [address], [address], [phone], Provider Name:Gerber Morales ier, 03/30/2025 02:30:00 PM, [address] [place] [address], [place] [address], [place], [place], [phone], Insurance Providers Payer Name Payer Address Payer Phone Subscriber Number Group Number Insured Name Patient Relationship to Insured Coverage Start Date Coverage End Date [employer] [address] [place], [place] [phone] [id number] Kelly Amaya Self - patient is the insured Medical (General) History Medical History History ICD Code Colonoscopy 08/08/15 - Dr. Keila Espinosa h - repeat 10 years Surgical History Surgery Date(Month/Year) RT Breast Biopsy w/Needle Localization b y Dr. Doreen Mcmahon 11/2018
--- OUTSIDE RECORDS SUMMARY | 2024-03-31 08:10 | XMS_ITS ---
Author Organization Gerber Ivan MD Address [address] [place] [phone] Care Team Providers Care Biodiesel Production Technician Name Role Phone Gerber Ivan Primary Care [...] kg/m2 03/24/2024 weight is down 2 pounds formerly [facility] 10-10-23 Encounters Encounter Location Date Provider Diagnosis Gerber Ivan MD [address] [place] [phone] 03/24/2024 Gerber Ivan Annual physical exam Z00.00 [...] Prediabetes stable, no need for medication at [facility] time Vitamin D deficiency stable, will contin ue current regiment Depression screening negative screen Referrals Referral Date Details 03/24/2024 03/24/2024, skin tag middle of her back, Bertram Duke Next Appt Details Provider Name:Gerber burris, 03/23/2025 07:30:00 AM, [address] [place] [address], [address], [place], [place], [phone], Provider Name:Gerber tuttler, 03/30/2025 02:30:00 PM, [address] [place] [address], [address], [place], [place], [phone], Progress Notes * Kelly SAHA LDOB:[birth year] (59 yo F)Acc No.[id number]:03/24/2024 Progress Notes Patient:?Kelly SAHA L Provider:?Gerber Ivan MD :1965???Age:59 Y???Sex:Female D ate:03/24/2024 Address:[address] [place], [place] [phone] Subjective: * Chief Complaints: * ???Annual visiit * HPI: ???Depression Screening:?PHQ-9?Little interest or pleasure in doing things?Not at all,?Feeling down, depressed, or hopeless?Not at all,?Trouble falling or staying asleep, or sleeping too much?Not at all,?Feeling tired or having little energy?Not at all,?Poor appetite or overeating?Not at all,?Feeling bad about yourself or that you are a failure, or have let yourself or your family down?Not at all,?Trouble concentrating on things, such as reading the newspaper or watching television?Not at all,?Moving or speaking so slowly that other people could have noticed; or the opposite, being so fidgety or restless that you have been moving around a lot more than usual?Not at all,?Thoughts that you would be better off or of hurting yourself in some way?Not at all,?Total Score?0.?Interpretation and Intervention?Depression Screening Findings?Negative,?Follow-Up for Depression?: review of PHQ-9 found negative result, no follow-up needed.?Communication Needs:?Communication Needs?Does the patient have a hearing impairment?No,?Does the patient have a vision impairment??Yes,?If yes, what is the vision impairment??Glasses,?Does the patient have a cognition impairment??No.?Fall Risk:?History?Have you had any falls with injury in the past year??No,?Have you had two or more falls in the past year??No.?SDOH Questions:?SDOH Questions?In the past year have you been worried about losing housing??No,?In the past year have you or any family members you live with been unable to get any of the following when it was really needed? Check all that apply:?None.?Symptom(s):? patient is a 59 yo female here for yearly follow up with review of recent abs and follow up of chronioc issues.? has been doing well. * ROS:?General/Constitutional:?Patient denies?fatigue, headache.?Change in appetite?denies.?Chills?denies.?Fever?denies.?Ophthalmologic:?Blurred vision?denies.?Discharge?denies.?Pain?denies.?ENT:?Patient denies?decreased sense of smell, any loss of taste, sore throat.?Decreased hearing?denies.?Sore throat?denies.?Swollen glands?denies.?Endocrine:?Cold intolerance?denies.?Excessive thirst?denies.?Heat intolerance?denies.?Weight loss?denies.?Respiratory:?Cough?denies.?Shortness of breath at rest?denies.?Shortness of breath with exertion?denies.?Wheezing?denies.?Cardiovascular:?Chest pain at rest?denies.?Chest pain with exertion?denies.?Irregular heartbeat?denies.?Shortness of breath?denies.?Gastrointestinal:?Abdominal pain?denies.?Change in bowel habits?denies.?Diarrhea?denies.?Nausea?denies.?Rectal bleeding?denies.?Vomiting?denies .?Genitourinary:?Blood in urine?denies.?Difficulty urinating?denies.?Frequent urination?denies.?Musculoskeletal:?Patient denies?muscle aches.?Painful joints?denies.?Weakness?denies.?Peripheral Vascular:?Patient denies?red and blue toes.?Skin:?Dry skin?denies.?Itching?denies.?Denies?Mole(s),? changes in moles, new moles or any lesions of concern.?Denies?Photosensitivity.?Rash?denies.?Neurologic:?Dizziness?denies.?Fainting?denies.?Headache?denies.? * Medical History:? * Surgical History:? * Hospitalization/Major Diagno stic Procedure:? * Family History:?Father: leilani yan 78 yrs, diagnosed with Hypertension.?Mother: 62 yrs, diagnosed with Cancer.?1 sister(s) . 1 son(s) , 2 daughter(s) . .? Mother- [place], Denies mental health/substance abuse family history, Denies mental health/substance abuse family history, No pertinent family medical history. * Social History:?Tobacco Use:?Tobacco Use/Smoking?Patient is a?nonsmoker,?Additional Findings: Tobacco Non-User?Current non-smoker, currently using no form of tobacco.?Drugs/Alcohol:?Alcohol Screen?Did you have a drink containing alcohol in the past year??Yes,?How often did you have a drink containing alcohol in the past year??4 or more times a week (4 points),?How many drinks did you have on a typical day when you were drinking in the past year??1 or 2 drinks (0 point),?How often did you have 6 or more drinks on one occasion in the past year??Never (0 point),?Points?4,?Interpretation?Positive.?Miscellaneous:?Caffeine: yes, frequency:, 1-2 cups per day. Children: yes. Community involvements: no. Exercise: yes, walks everyday for 1 hour. Housing: owning. Living with: spouse and children. Marital status: . 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 Pets: none. Travel outside of the [place]: no. * Medications:?TakingClaritin 10 MG Tablet 1 tablet [...] reviewed and reconciled with the patient * Allergies:?N.K.D.A.yes[Aller gies Verified] Objective: * Vitals:?Ht: 62, Wt: 158, BMI :28.9, BP:122/76, Wt-k.67. weight is down 2 pounds since 10-10-23. * ???Past Orders: Lab:Complete Blood Count Aut o Diff * Collection Date 03/17/2024 02/14/2024 Collection Time 07:30 AM 01:50 PM Order Date 03/17/2024 02/14/2024 White Blood Count 6.6 (Ref Range: 4.8-10.8 X10*3/uL) 8.8 (Ref Range: 4.8-10.8 X10*3/uL) Red Blood Count 4.23 (Ref Range: 4.20-5.50 X10*6/uL) 3.96?L (Ref Range: 4.20-5.50 X10*6/uL) Hemoglobin 12.9 (Ref [...] Pct Auto 0.2 (Ref Range: 0.0-0.4 %) 0.5?H (Ref Range: 0.0-0.4 %) Lymphocytes Percent Auto [...] Abs Auto 0.01 (Ref Range: 0.00-0.03 X10*3/uL) 0.04?H (Ref Range: 0.00-0.03 X10*3/uL) Lymphocytes Absolute Auto [...] 0.0-0.012 X10*3/uL) 0.000 (Ref Range: 0.0-0.012 X10*3/uL) ???Lab:Dwain Medina (Order Date - 02/14/2024) (Collection Date & Time - 02/14/2024 01:50 PM)?ValueReference Range?Dtingw015467-282 - mmol/L?Bilirubin Total0.50.0-1.0 - mg/dL?Aspartate Amino Tutqafeqgkb027-46 - U/L?Alanine Rorqypxqzygonolq920-54 - U/L?Total Protein6.56.5-8.0 - g/dL?Albumin Level4.03.5-5.0 - g/dL?Alkaline Orlyksaugrl7645-677 - U/L?Potassium3.83.3-5.1 - mmol/L?Ncwekkcp13947-058 - mmol/L?Carbon Fqgqcmt2722-46 - mmol/L?Anion Ttz7768-97 -?Blood Urea Pkretapn98H4-47 - mg/dL?Creatinine0.590.5-1.4 - mg/dL?Estimated Glomerular Filt Rate> 60-?Glucose Nvffqv86345-647 - mg/dL?Calcium8.68.4-10.2 - mg/dL?Creatinine Clr Calc Oaelpxpm66.0- ???Lab:Christa [facility] (Order Date - 02/14/2024) (Collection Date & Time - 02/14/2024 01:50 PM)?ValueReference Range?Christa WhitfieldSefarrah Note- ???Lab:Lipid Panel (Order Date - 03/17/2024) (Collection Date & Time - 03/17/2024 07:30 AM)?ValueReference Range?Xckenoiacuzjs860<150 - mg/dL?Upsrslktnzz089<200 - mg/dL?LDL Cholesterol Gkzcorkwwf702D<100 - mg/dL?HDL Lebddlgfdne50>40 - mg/dL ???Lab:Vitamin D 25-OH Total (Order Date - 03/17/2024) (Collection Date & Time - 03/17/2024 07:30 AM)?ValueReference Range?Vitamin D 25-OH Total53.6>30 - ng/mL ???Lab:Hemoglobin A1c (Order Date - 03/17/2024) (Collection Date & Time - 03/17/2024 07:30 AM)?ValueReference Range?Hemoglobin A1c %5.9<6.0 - %?Estimated Average Cbvxzxg076- mg/dL ???Lab:Microalbumin, Random (Order Date 03/17/2024) (Collection Date & Time - 03/17/2024 07:30 AM)?ValueReference Range?Creatinine Urine99.27- mg/dL?Microalbumin Urine17.0- mg/L?Microalbum Creatinine Ratio Ur17.1<30 - ug/mg cr ???Lab:Comprehensive [place]. Panel Fast (Order Date - 03/17/2024) (Collection Date & Time - 03/17/2024 07:30 AM)?ValueReference Range?Frpcpt352926- 145 - mmol/L?Bilirubin Total0.60.0-1.0 - mg/dL?Aspartate Amino Veggptuqifm47X1-97 - U/L?Alanine Sawrrlnupzownzbf97U5-17 - U/L?Total Protein7.06.5-8.0 - g/dL?Albumin Level4.23.5-5.0 - g/dL?Alkaline Hrqsqaupjjo4401-092 - U/L?Potassium4.23.3-5.1 - mmol/L?Mpikdtfm17612-572 - mmol/L?Carbon Qilostn0222-39 - mmol/L?Anion Ybf3408-05 -?Blood Urea Frnalyuj73U8-20 - mg/dL?Creatinine0.680.5-1.4 - mg/dL?Estimated Glomerular Filt Rate> 60-?Glucose Ysdahzk917S64-15 - mg/dL?Calcium8.68.4-10.2 - mg/dL * Examination: ???General Examination: ?GENERAL APPEARANCE:?well developed, well nourished, in no acute distress.?HEAD:?normocephalic, atraumatic.?EYES:?pupils equal, round, reactive to light and accommodation, sclera non-icteric.?EARS:?normal.?ORAL CAVITY:?mucosa moist.?THROAT:?clear.?NECK/THYROID:?neck supple, full range of motion, no cervical lymphadenopathy, no bruits.?SKIN:?warm and dry, no suspicious lesions, abnormal small venous olmstead on lip. has a 1/4 in skin tag that appears irritated as it is under her bra strap.?HEART:?regular rate and rhythm, S1, S2 normal, no murmurs.?LUNGS:?clear to auscultation bilaterally.?ABDOMEN:?soft, nontender, nondistended, bowel sounds present, normal, no organomegaly , no masses palpable.?RECTAL EXAM:?not examined.?EXTREMITIES:?no clubbing, cyanosis, or edema.?NEUROLOGIC:?nonfocal, motor strength normal upper and lower extremities, sensory exam intact.? Assessment: * Assessment: 1.?Annual physical exam - Z0 0.00 (Primary)???2.?Elevated BP - I10???3.?Venous olmstead - R23.8???4.?Pure hypercholesterolemia - E78.00???5.?Prediabetes - R73.09???6.?Vitamin D deficiency - E55.9 ??7.?Irritable bowel syndrome with both constipation and diarrhea - K58.2???8.?Depression screening - Z13.31??? Plan: * Treatment: 2.?Elevated BP? Notes: doing well, will contnue current regiment and will continue to monitor?? 3.?Venous olmstead? Notes: observaition. if it gets bigger can treat with laser for cosmetic purpases?? 4.?Pure hypercholesterolemia ? Notes: stable, will continue current regiment?? 5.?Prediabetes? Notes: stable, no need for medication at thhis time?? 6.?Vitamin D deficiency? Continue Vitamin D-3 Capsule, 1000 UNIT, 2 capsule, Orally, Once a day.?? Notes: stable, will continue current regiment?? 7.?Depression screening? Notes: negative screen?? 8.?Others? Referral To:Bertram Duke??Surgery ?Reason:skin tag middle of her back * Procedure Codes:? * * Sign off status: Completed true * Provider:?Gerber Ivan MD Date:?0 03/24/2024 Generated for Christine hunt/Andres/Gloriaitting on:?03/31/2024 08:10 AM EST History and Physical Notes * [...] patient have a vision impairmen t?: Yes ?If yes, what is the vision impairment?: Glasses Does the patient have a cognition impair ment?: No Examination Category Sub-Category Detail Notes Category Not es General Examination GENERAL APPEARANCE: well dev eloped, well nourished, in no acute distress HEAD: normocephalic, atrau matic EYES: pupils equal, round, reactive to light and accommodation, sclera non- icteric EARS: normal THROAT: clear NECK/THYROID: neck supple, [...]
--- OUTSIDE RECORDS SUMMARY | 2024-03-31 08:10 | XMS_ITS ---
Author Organization Gerber Ivan MD Address [address] [place] [phone] Care Team Providers Care Senior Java Web Application Developer Name Role Phone Gerber Ivan Primary Care Provider REASON FOR VISIT note for work Encounters Encounter Location Date Provider Diagnosis Gerber Ivan MD [address] [facility] [address] [place] [phone] 10/14/2023 Gerber Ivan Plan Of Treatment Next Appt Details Provider Name:Gerber burris, 03/23/2025 07:30:00 AM, [address] [place] [address], [address], [phone], Provider Name:Gerber burris, 03/30/2025 02:30:00 PM, [address] [place] [address], [address], [phone], Progress Notes * Kelly SAHA LDOB:[birth year] (58 yo F)Acc No.[id number]:10/14/2023 Patient:?Kelly Saha :1965???Age:58 Y???Sex:Female Address:[address] [place] [id number] * true * Date:? Generated for Christine hunt/Andres/Gloriaitting on:?03/31/2024 08:10 AM EST
--- NOTE | 2024-03-31 08:17 | A.OFFVIS_ITS ---
Vital Signs 3 03/31/24 08:23 Height 5 ft 1 in Weight 159 lb BMI 30.0 BP 138/85 Blood Pressure Location Rt brachial Position Sitting Pulse 80 Intake Visit Reasons: skin tag on back Intake Note: Patient is seen in office for removal of a skin tag of the lt mid back. Pt c/o: irritated with bra strap. L.OV:03/20/24 (B) Senior Clinical Study Manager Required: No Accompanied by: Self / Same As Patient Allergies No Known Allergies Allergy (Verified 03/31/24 08:23) HPI Comments Details: Returns today for excision of a skin lesion in the left mid back measuring approximately 0.5 cm in diameter. [facility] Medical History ASCUS of cervix with negative high risk HPV COVID-19 vaccine series completed Kidney stone Chronic idiopathic constipation Surgical History History of lumpectomy of left breast Hx of cystoscopy Hx of right breast biopsy Hx of section Hx of colonoscopy Family History Father CVD (cardiovascular disease) History of heart bypass surgery HTN (hypertension) Mother Endometrial cancer HTN (hypertension) Paternal Grandmother Breast cancer, Onset Age: 40 Maternal Grandfather Esophageal cancer Paternal Uncle Esophageal cancer Social History Household Members: Spouse Housing: House Are you a primary home care physical therapist to a significant other at home: No Do you presently have visiting nurse or other home services: No Alcohol intake: current Alcohol intake frequency: a few times a week Alcohol type: wine Patient Tobacco Use Status: Never used Tobacco service: No Current occupational status: employed Female Reproductive History Menstrual Age of Menarche: 14 Physical Exam Vital Signs: Last Vital Signs Pulse 80 03/31/24 08:23 BP 138/85 03/31/24 08:23 BMI result Body Mass Index 30.0 Const General: no acute distress Nutritional Appearance: well nourished Orientation/consciousness: patient oriented x3 Resp Effort & Inspection: normal respiratory effort Back/Spine/Pelvis Back/spine/pelvis image: 2 1. 0.5 cm raised skin lesion, flesh colored with a 0.5 cm base. Skin Other: Lesion as noted above in back Neuro General: patient oriented x3 Office Procedures Excision Details: Preoperative diagnosis: Skin lesion left back Postoperative diagnosis: Same Procedure: Excision of skin lesion left back Surgeon: Bertram Duke MD Vice President Investor Relations: None Anesthesia: Lidocaine 1% with epinephrine Indications for procedure: Enlarging skin lesion left back measuring 0.5 cm Operative findings: 0.5 cm raised skin lesion Specimen: Skin lesion left midback Estimated blood loss: None Complications: None Procedure details: Patient was placed in the procedure room in the site of surgery confirmed by the patient in the left mid back. After assuring informed consent the patient was placed in a right lateral decubitus position. The skin was prepped with Betadine and draped in a sterile fashion local anesthesia was then infiltrated around the lesion. An elliptical incision created with a 15 blade around the lesion was then performed. The lesion was completely excised from the subcutaneous tissue and sent to pathology for further examination. Skin was then closed using a 4-0 nylon suture. Sterile dressings consisting of a 2 x 2 gauze and sterile bandage was then applied. The patient tolerated the procedure well. She will return in 1 week for suture removal. 05210-xydak/arms/legs < 0.5cm Procedure code (CPT) selection complete Assessment & Plan Assessment & Plan (1) Skin lesion of back: Code(s): L98.9 - Disorder of the skin and subcutaneous tissue, unspecified Category: Medical Plan 59-year-old female patient returning for a skin lesion of the left mid back. She tolerated the excision well we will return in 1 week for suture removal. Coding Level of Care Code Procedure Only Diagnoses Skin lesion of back L98.9 CPT Codes Trunk/Arms/Legs - CPT: 37764-rfjnt/arms/legs < 0.5cm ([id number])
[2024-03-31 08:23] VITALS: BP 138/85; PULSE 80
== END 2024-03-31 08:40 | disposition home or self-care (01) ==
PROVIDERS: PCP Internal Medicine; Visit Provider Surgery
DX: L98.9 Disorder of the skin and subcutaneous tissue, unspecified (principal); D36.7 Benign neoplasm of other specified sites
CPT/HCPCS: 11401

== ENCOUNTER 2024-04-10 10:48 | Outpatient (AMB) | payer BC, SELFPAY ==
--- NOTE | 2024-04-10 10:49 | MHC.OFFVIS ---
Vital Signs 04/10/24 10:56 Height 5 ft 1 in Weight 158 lb 11.725 oz BMI 30.0 Intake Visit Reasons: stitch removal Intake Note: Patient is seen in office for post op assessment post excision of skin lesion of the left mid back. Pt c/o: denies any concerns at the time of visit Casting Wheel Operator Required: No Accompanied by: Self / Same As Patient Allergies No Known Allergies Allergy (Verified 03/31/24 08:23) HPI Comments Details: Kelly returns 1 week following excision of a skin lesion of the left mid back. She tolerated the procedure well and returns today for suture removal. Pathology revealed a neurofibroma. There was no evidence of malignancy. [facility] Medical History ASCUS of cervix with negative high risk HPV COVID-19 vaccine series completed Kidney stone Chronic idiopathic constipation Surgical History History of lumpectomy of left breast Hx of cystoscopy Hx of right breast biopsy Hx of section Hx of colonoscopy Family History Father CVD (cardiovascular disease) History of heart bypass surgery HTN (hypertension) Mother Endometrial cancer HTN (hypertension) Paternal Grandmother Breast cancer, Onset Age: 40 Maternal Grandfather Esophageal cancer Paternal Uncle Esophageal cancer Social History Household Members: Spouse Housing: House Are you a primary care director to a significant other at home: No Do you presently have visiting nurse or other home services: No Alcohol intake: current Alcohol intake frequency: a few times a week Alcohol type: wine Patient Tobacco Use Status: Never used Tobacco service: No Current occupational status: employed Female Reproductive History Menstrual Age of Menarche: 14 Physical Exam Vital Signs: BMI result Body Mass Index 30.0 Const General: healthy appearing Nutritional Appearance: well nourished Orientation/consciousness: patient oriented x3 Back/Spine/Pelvis Other: Excision site clean and intact. Sutures removed. Neuro General: patient oriented x3 Assessment & Plan Assessment & Plan (1) Skin lesion of back: Code(s): L98.9 - Disorder of the skin and subcutaneous tissue, unspecified Category: Medical Plan Kelly returns 1 week following excision of a neurofibroma of the left mid back. She tolerated the procedure well the wounds have healed appropriately. She should follow up for routine breast follow-up. Coding Level of Care Code Global (46696) Diagnoses Skin lesion of back L98.9
--- OUTSIDE RECORDS SUMMARY | 2024-04-10 11:52 | XMS_ITS ---
Author Organization Gerber Ivan MD Address [address] [place] [phone] Care Team Providers Care Tent Worker Name Role Phone Gerber Ivan Primary Care Provider [phone] REASON FOR VISIT note for work Encounters Encounter Location Date Provider Diagnosis Gerber Ivan MD [facility] [address] [place] [phone] 10/14/2023 Gerber Ivan Plan Of Treatment Next Appt Details Provider Name:Gerber burris, 03/23/2025 07:30:00 AM, [address] [place] [address], [address], [phone], Provider Name:Gerber burris, 03/30/2025 02:30:00 PM, [address] [place] [address], [address], [phone], Progress Notes * Kelly SAHA LDOB:[birth year] (58 yo F)Acc No.[id number]:10/14/2023 Patient:?Kelly Saha :1965???Age:58 Y???Sex:Female Address:[address] [place] [id number] * true * Date:? Generated for Christine hunt/Andres/Gabriellasmitting on:?04/10/2024 11:52 AM EST
--- OUTSIDE RECORDS SUMMARY | 2024-04-10 11:53 | XMS_ITS ---
Author Organization Gerber Ivan MD Address [address] [place] [phone] Care Team Providers Care Metal Drawer Name Role Phone Gerber Ivan Primary Care Provider [phone] Allergies No Known Allergies Reason For Referral [...] kg/m2 03/24/2024 weight is down 2 pounds [facility] 10-10-23 Encounters Encounter Location Date Provider Diagnosis Gerber Ivan MD [address] [place] [phone] 03/24/2024 Gerber Ivan Annual physical exam Z00.00 [...] Prediabetes stable, no need for medication at [facility] time Vitamin D deficiency stable, will contin ue current regiment Depression screening negative screen Referrals Referral Date Details 03/24/2024 03/24/2024, skin tag middle of her back, Bertram Duke Next Appt Details Provider Name:Gerber burris, 03/23/2025 07:30:00 AM, [address] [place] [address], [address], [place], [place], [phone], Provider Name:Gerber tuttler, 03/30/2025 02:30:00 PM, [address] [place] [address], [address], [place], [place], [phone], Progress Notes * Kelly SAHA LDOB:[birth year] (59 yo F)Acc No.[id number]:03/24/2024 Progress Notes Patient:?Kelly SAHA L Provider:?Gerber Ivan MD :1965???Age:59 Y???Sex:Female D ate:03/24/2024 Address:[address] [place], [place] [phone] Subjective: * Chief Complaints: * ???Annual visiit [...] and children. Marital status: . 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 Pets: none. Travel outside of the [place]: no. * Medications:?TakingClaritin 10 MG Tablet [...] Date & Time - 02/14/2024 01:50 PM)?ValueReference Range?Lbaivg536125-508 - mmol/L?Bilirubin Total0.50.0-1.0 - mg/dL?Aspartate Amino Xgxiwscuiwx753-75 - U/L?Alanine Yrfihkduposusphs064-38 - U/L?Total Protein6.56.5-8.0 - g/dL?Albumin Level4.03.5-5.0 - g/dL?Alkaline Sbvapuyvnwf7926-345 - U/L?Potassium3.83.3-5.1 - mmol/L?Lrfxhgct75926-324 - mmol/L?Carbon Siqxisp3802-43 - mmol/L?Anion Cwp8236-61 -?Blood Urea Tfmngmkq01E5-07 - mg/dL?Creatinine0.590.5-1.4 - mg/dL?Estimated Glomerular Filt Rate> 60-?Glucose Uapwoe94886-710 - mg/dL?Calcium8.68.4-10.2 - mg/dL?Creatinine Clr Calc Yvbrjumr01.0- ???Lab:Christa Whitfield (Order Date - 02/14/2024) (Collection Date & Time - 02/14/2024 01:50 PM)?ValueReference Range?Christa WhitfieldSefarrah Note- ???Lab:Lipid Panel (Order Date - 03/17/2024) (Collection Date & Time - 03/17/2024 07:30 AM)?ValueReference Range?Azznybiugijsb106<150 - mg/dL?Kydecsfgove290<200 - mg/dL?LDL Cholesterol Csjztiukpv186S<100 - mg/dL?HDL Jpohugmohng79>40 - mg/dL ???Lab:Vitamin D 25-OH Total (Order Date - 03/17/2024) (Collection Date & Time - 03/17/2024 07:30 AM)?ValueReference Range?Vitamin D 25-OH Total53.6>30 - ng/mL ???Lab:Hemoglobin A1c (Order Date - 03/17/2024) (Collection Date & Time - 03/17/2024 07:30 AM)?ValueReference Range?Hemoglobin A1c %5.9<6.0 - %?Estimated Average Binsqhe109- mg/dL ???Lab:Microalbumin, Random (Order Date 03/17/2024) (Collection Date & Time - 03/17/2024 07:30 AM)?ValueReference Range?Creatinine Urine99.27- mg/dL?Microalbumin Urine17.0- mg/L?Microalbum Creatinine Ratio Ur17.1<30 - ug/mg cr ???Lab:Comprehensive [place]. Panel Fast (Order Date - 03/17/2024) (Collection Date & Time - 03/17/2024 07:30 AM)?ValueReference Range?Jaaqhl915675- 145 - mmol/L?Bilirubin Total0.60.0-1.0 - mg/dL?Aspartate Amino Xlsbqkaniom09P3-50 - U/L?Alanine Maeeykocrtcdbqjx12J8-74 - U/L?Total Protein7.06.5-8.0 - g/dL?Albumin Level4.23.5-5.0 - g/dL?Alkaline Xofjqjbsfzo6002-615 - U/L?Potassium4.23.3-5.1 - mmol/L?Nmwlmdvn44145-197 - mmol/L?Carbon Nrdlkol3697-27 - mmol/L?Anion Bfe2922-89 -?Blood Urea Xiazjmea30Y3-77 - mg/dL?Creatinine0.680.5-1.4 - mg/dL?Estimated Glomerular Filt Rate> 60-?Glucose Tuvqsvn375R41-82 - mg/dL?Calcium8.68.4-10.2 - mg/dL * Examination: ???General [...] MD Date:?0 03/24/2024 Generated for Christine hunt/Andres/Gloriaitting on:?04/10/2024 11:52 AM EST History and Physical Notes * [...]
--- OUTSIDE RECORDS SUMMARY | 2024-04-10 11:53 | XMS_ITS | Patient Health Record ---
Author Organization Gerber Ivan MD Address [address] [place] [phone] Care Team Providers Care Tennis Net Maker Name Role Phone Gerber Ivan Primary Care Provider Allergies No Known Allergies Results Component Value Reference Range Notes Complete Blood Count Auto Di ff Reviewed date:03/17/2024 01:27:38 PM Interpretation: Performing Lab:[facility], [address] [place] [phone] Notes/Report: White Blood Count 6.6 4.8-10.8 X10*3/uL [...] NRBC Abs Auto 0.000 0.0-0.012 X10*3/uL Comprehensive [place]. Panel Fa st Reviewed date:03/17/2024 04:32:37 PM Interpretation: Performing Lab:[facility], [address] [place] [phone] Notes/Report: Sodium 139 135-145 mmol/L Potassium 4.2 [...] Panel Reviewed date:03/17/2024 12:47:40 PM Interpretation: Performing Lab:[facility], [address] [place] [phone] Notes/Report: Triglycerides 107 <150 mg/dL Desirable Triglyceride: [...] Total Reviewed date:03/17/2024 12:47:54 PM Interpretation: Performing Lab:[facility], [address] [place] [phone] Notes/Report: Vitamin D 25-OH Total 53.6 >30 [...] Random Reviewed date:03/17/2024 04:30:37 PM Interpretation: Performing Lab:[facility], [address] [place] [phone] Notes/Report: Creatinine Urine 99.27 Microalbumin Urine 17.0 Microalbum/Creatinine Ratio Ur 17.1 <30 ug/mg cr Albumin/Creatinine Ratio Reference Ranges: Normal: < 30 ug/mg creatinine Microalbuminuria: 30 - 300 ug/mg creatinine Clinical Albuminuria: > 300 ug/mg creatinine Hemoglobin A1c Reviewed date:03/17/2024 12:40:35 PM Interpretation: Performing Lab:[facility], [address] [place] [phone] Notes/Report: Hemoglobin A1c % 5.9 <6.0 % [...] average glucose, using the formula of the E9R-Xbwpeml Average Glucose study (ADAG), Diabetes Care, Vol.31,#8, Sep. 2007 MR breast BI wo/w con Reviewed date:05/24/2023 02:15:27 PM Interpretation: Performing Lab: Notes/Report: [address] [address] Magnetic Resonance Report Signed Patient: Kelly Amaya MR#: [id number] : 1965 Acct:[id number] Age/Sex: 58 / F ADM Date: 05/15/23 Loc: .MRI Attending Dr: Bertram Duke MD Ordering Physician: Bertram Duke MD Date of Service: 05/15/23 Procedure(s): MR breast BI wo/w con Accession Number(s): [id number] cc: Gerber Ivan MD; Bretram Duke MD EXAMINATION: MR BREAST WITHOUT AND [...] suspicious mass-like enhancement. No suspicious mass-like or brw-vfqt-lyua enhancement. No abnormal skin thickening or nipple [...] in OV> 05/24/23 1144 DD/ 1520 TD/TT: Yarn Hauler: AMINA [address] [address] Magnetic Resonance Report Signed Patient: Kelly Amaya MR#: [id number] : 1965 Acct:[id number] Age/Sex: 58 / F ADM Date: 05/15/23 Loc: HO.MRI Attending Dr: Bertram Duke MD Ordering Physician: Bertram Duke MD Date of Service: 05/15/23 Procedure(s): MR dov wright BI wo/w con Accession Number(s): [id number] cc: Gerber Ivan MD; Bertram Duke MD [...] suspicious mass-like enhancement. No suspicious mass-like or suo-imbw-yyjr enhancement. No abnormal skin thickening or nipple [...] in OV> 05/24/23 1144 DD/ 1520 TD/TT: Yarn Hauler: AMINA Complete Blood Count Auto Di ff Reviewed date:07/30/2023 04:27:08 PM Interpretation: Performing Lab:[facility], [address] [place] [phone] Notes/Report: White Blood Count 7.3 4.8-10.8 X10*3/uL [...] Panel Reviewed date:07/30/2023 04:28:29 PM Interpretation: Performing Lab:[facility], [address] [place] [phone] Notes/Report: Sodium 142 135-145 mmol/L Potassium 4.0 [...] Glomerular Filt Rate > 60 NOTE: For -[place] individuals, multiply the result by 1.210. Chronic [...] date:11/18/2023 05:48:24 PM Interpretation: Performing Lab: Notes/Report: [address] [place] [address] Mammography Report Signed Patient: Kelly Amaya MR#: [id number] : 1965 Acct:[id number] Age/Sex: 58 / F ADM Date: 11/18/23 Loc: ANNYO Attending Dr: Gerber Ivan MD Ordering Physician: Gerber Ivan MD Results: 2Be nign Findings Date of Service: 11/18/23 Follow Up: 1 Year From Orig ina Mammogram Procedure(s): MM tomosynthesis screening BI Accession Number(s): [id number] cc: Gerber Ivan MD EXAMINATION: MM SCREENING [...] 11/18/23 1538 DD/ 1315 TD/TT: 11/18/23 1339 Yarn Hauler: [facility] [address] [place], [place] [address] Mammography Report Signed Patient: Kelly Amaya MR#: [id number] : 1965 Acct:[id number] Age/Sex: 58 / F ADM Date: 11/18/23 Loc: MAMMO Attending Dr: Gerber Ivan MD Ordering Physician: Gerber Ivan MD Results: 2Be nign Findings Date of Service: 11/18/23 Follow Up: 1 Year From Orig inal Mammogram Procedure(s): MM tomosynthesis screening BI Accession Number(s): [id number] cc: Gerber Ivan MD EXAMINATION: MM SCREENING [...] 11/18/23 1538 DD/ 1315 TD/TT: 11/18/23 1339 Yarn Hauler: Complete Blood Count Auto Di ff Reviewed date:02/14/2024 04:49:50 PM Interpretation: Performing Lab:[facility], [address] [place] [phone] Notes/Report: White Blood Count 8.8 4.8-10.8 X10*3/uL [...] Panel Reviewed date:02/14/2024 02:56:30 PM Interpretation: Performing Lab:[facility], [address] [place] [phone] Notes/Report: Sodium 138 135-145 mmol/L Potassium 3.8 [...] Gold Reviewed date:02/14/2024 02:56:44 PM Interpretation: Performing Lab:[facility], [address] [place] [phone] Notes/Report: Hold Gold See Note Specimen held untested for 24 hours; Call to request Chemistry testing. Reason For Referral Reason skin tag middle of h er back Diagnosis 1 Skin tag (L91.8) Referral Organization Gerber Ivan MD Referring Provider First Name Gerber Referring Provider Last Name Mnocho Referring Provider Speciality Internal M edicine Referred [...] Problem Status W/U Status Risk Notes Problem 89161899 Vitamin D defici ency (E55.9) Active confirmed Problem 671422425 Body mass index (BMI) 30.0-30.9, adult (Z68.30) Active confirmed Problem 31732594 Kidney stone (N20.0) Active confirmed Problem 0479844 Prediabetes (R73.09) Active confirmed Problem 80564656 Kidney stones (N20.0) Active confirmed Problem 22188878 Elevated BP (I10) Active confirmed Problem 268366848 Pure hypercholesterolemia (E78.00) Active confirmed Problem 14761717 Irritable bowel syndrome with both 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) Active confirmed Problem 658558903 Abnormal mammogr am of both breasts (R92.8) Active confirmed Problem 671698035 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) [...] Location Date Provider Diagnosis Gerber Ivan MD [address] [place] [address] [address] [place] [phone] 03/17/2024 Gerber Ivan Blood tests for rout ine general physical examination Z00.00 ; Prediabetes R73.09 ; Pure hypercholesterolemia E78.00 and Vitamin D deficiency E55.9 Gerber Ivan MD [address] [place] [address] [address] [phone] 10/10/2023 Gerber Ivan Herpes zoster withou t complication B02.9 Gerber Ivan MD [address] [place] [address] [phone] 03/24/2024 Gerber Ivan Annual physical exam Z00.00 ; Elevated BP I10 ; Venous olm[place] R23.8 ; Pure hypercholesterolemia E78.00 ; Prediabetes R73.09 ; Vitamin D deficiency E55.9 ; Irritable bowel syndrome with both constipation and diarrhea K58.2 and Depression screening Z13.31 Gerber Ivan MD [address] [place] [address] Drive [address] [place] [phone] 10/14/2023 Gerber Ivan Assessments Encounter Date Diagnosis [...] Provider Name:Gerber Morales ier, 03/23/2025 07:30:00 AM, [address] [place] [address], [address], [phone], Provider Name:Gerber Morales ier, 03/30/2025 02:30:00 PM, [address] [place] [address], [place] [address], [place], [place], [phone], Insurance Providers Payer Name Payer Address Payer Phone Subscriber Number Group Number Insured Name Patient Relationship to Insured Coverage Start Date Coverage End Date [employer] [address] [place], [place] [id number] [phone] [id number] Kelly Amaya Self - patient is the insured Medical (General) History Medical History History ICD Code Colonoscopy 08/08/15 - Dr. Keila Espinosa h - repeat 10 years Surgical History Surgery Date(Month/Year) RT Breast Biopsy w/Needle Localization b y Dr. Doreen Mcmahon 11/2018
--- OUTSIDE RECORDS SUMMARY | 2024-04-10 11:53 | XMS_ITS ---
Author Organization Gerber Ivan MD Address [address] [place] [phone] Care Team Providers Care Veterinary Nurse Name Role Phone Gerber Ivan Primary Care Provider [phone] Results Component Value Reference Range Notes Complete Blood Count Auto Di ff Reviewed date:03/17/2024 01:27:38 PM Interpretation: Performing Lab:[facility], [address] [place] [phone] Notes/Report: White Blood Count 6.6 4.8-10.8 X10*3/uL [...] NRBC Abs Auto 0.000 0.0-0.012 X10*3/uL Comprehensive [place]. Panel Fa st Reviewed date:03/17/2024 04:32:37 PM Interpretation: Performing Lab:[facility], [address] [place] [phone] Notes/Report: Sodium 139 135-145 mmol/L Potassium 4.2 [...] Panel Reviewed date:03/17/2024 12:47:40 PM Interpretation: Performing Lab:[address] [phone] Notes/Report: Triglycerides 107 <150 mg/dL Desirable Triglyceride: [...] Total Reviewed date:03/17/2024 12:47:54 PM Interpretation: Performing Lab:[address] [phone] Notes/Report: Vitamin D 25-OH Total 53.6 >30 [...] Random Reviewed date:03/17/2024 04:30:37 PM Interpretation: Performing Lab:[address] [phone] Notes/Report: Creatinine Urine 99.27 Microalbumin Urine 17.0 Microalbum/Creatinine Ratio Ur 17.1 <30 ug/mg cr Albumin/Creatinine Ratio Reference Ranges: Normal: < 30 ug/mg creatinine Microalbuminuria: 30 - 300 ug/mg creatinine Clinical Albuminuria: > 300 ug/mg creatinine Hemoglobin A1c Reviewed date:03/17/2024 12:40:35 PM Interpretation: Performing Lab:[facility], [address] [place] [phone] Notes/Report: Hemoglobin A1c % 5.9 <6.0 % [...] average glucose, using the formula of the H5Y-Iolqhfl Average Glucose study (ADAG), Diabetes Care, Vol.31,#8, Sep. 2007 REASON FOR VISIT yearly fasting labs Encounters Encounter Location Date Provider Diagnosis Gerber Ivan MD [address] [place] [address] [place] [phone] 03/17/2024 Gerber Ivan Blood tests for rout [...] Details Provider Name:Gerber burris, 03/23/2025 07:30:00 AM, [address] [place] [address], [address] [place] [address], [phone], Provider Name:Gerber burris, 03/30/2025 02:30:00 PM, [address] [place] [address], [address] [place] [address], [phone], Progress Notes * Kelly SAHA LDOB:[birth year] (59 yo F)Acc No.[id number]:03/17/2024 Progress Note Patient:?Kelly SAHA Provider:?Gerber Ivan MD :1965???Age:59 Y???Sex:Female D ate:03/17/2024 Address:[address] [place], [place] [phone] Subjective: * Chief Complaints: * ???1. Yearly fasting labs. * Medical History:? Objective: * Vitals:? Assessment: * Assessment: 1.?Blood tests for routine g eneral physical examination - Z00.00 (Primary)???2.?Prediabetes - R73.09???3.?Pure hypercholesterolemia - E78.00???4.?Vitamin D deficiency - E55.9??? Plan: * Treatment: 2.?Prediabetes?LAB: Complete Blood Count Auto Diff (Collection Date & Time - 03/17/2024 07:30 AM) ?LAB: [facility] [place]. Panel Fast (Collection Date & Time - [...] Time - 03/17/2024 07:30 AM) ?LAB: [facility] [place]. Panel Fast (Collection Date & Time - [...] Time - 03/17/2024 07:30 AM) ?LAB: [facility] [place]. Panel Fast (Collection Date & Time - 03/17/2024 07:30 AM) ?LAB: Lipid Panel (Collection Date & Time - 03/17/2024 07:30 AM) ?LAB: Vitamin D 25-OH Total (Collection Date & Time - 03/17/2024 07:30 AM) ?LAB: Microalbumin, Random (Collection Date & Time - 03/17/2024 07:30 AM) ?LAB: Hemoglobin A1c (Collection Date & Time - 03/17/2024 07:30 AM) * Procedure Codes:?86218 VENIP UNCT, ROUTINE* * * The named appointment provid er may or may not be the originator of this progress note, and it is not deemed complete until electronically signed by the appointment provider. Sign off status: Pending * Provider:?Gerber Ivan MD Date:?0 03/17/2024 Generated for Christine hunt/Andres/Gloriaitting on:?04/10/2024 11:52 AM EST
== END 2024-04-10 11:04 | disposition home or self-care (01) ==
PROVIDERS: PCP Internal Medicine; Visit Provider Surgery
DX: L98.9 Disorder of the skin and subcutaneous tissue, unspecified (principal)
CPT/HCPCS: 99024

== ENCOUNTER → 2024-04-10 10:48 | Outpatient (BNVA) | payer BC, SELFPAY | PROVIDERS: PCP Internal Medicine; Visit Provider Surgery ==

== ENCOUNTER 2024-04-16 14:07 | Outpatient (AMB) | payer BC, SELFPAY ==
--- NOTE | 2024-04-16 14:10 | A.OFFVIS_ITS ---
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 No complaints. Last Pap/HPV was negative in 03/12 Last Mammogram was BI-RADS 2 in 11/11 Last Colonoscopy was 8-9 years ago, the recommendation was to repeat in 10 years The patient has high-risk breast cancer status and is being followed by Dr. Duke is having mammogram and MRI yearly six-months apart [facility] Medical History ASCUS of cervix with negative high risk HPV COVID-19 vaccine series completed Kidney stone Chronic idiopathic constipation Surgical History History of lumpectomy of left breast Hx of cystoscopy Hx of right breast biopsy Hx of section Hx of colonoscopy Family History Father CVD (cardiovascular disease) History of heart bypass surgery HTN (hypertension) Mother Endometrial cancer HTN (hypertension) Paternal Grandmother Breast cancer, Onset Age: 40 Maternal Grandfather Esophageal cancer Paternal Uncle Esophageal cancer Social History Household Members: Spouse Housing: House Are you a primary medicare sales executive to a significant other at home: No Do you presently have visiting nurse or other home services: No Alcohol intake: current Alcohol intake frequency: a few times a week Alcohol type: wine Patient Tobacco Use Status: Never used Tobacco service: No Current occupational status: employed Female Reproductive History Menstrual Age of Menarche: 14 Total pregnancies: 3 Full term: 3 Date of last pap smear: 02/27/22 (negative pap smear, negative hpv) Date of Mammogram: 11/18/23 (bi rad 2) Review of Systems Const All systems reviewed & are unremarkable except as noted in HPI and below Card Reports as per HPI Resp Reports as per HPI GI Reports as per HPI and Reports no additional complaints Reports as per HPI Physical Exam Vital Signs: Last Vital Signs BP 108/76 04/16/24 14:18 BMI result Body Mass Index 30.0 Const General: cooperative, healthy appearing and comfortable Chest Chest palpation & inspection: normal inspection of the chest and normal palpation of entire chest wall Breast/axilla inspection: normal inspection of the breasts and normal inspection of the axillae Breast/axilla palpation: normal palpation of the breasts, normal palpation of the axillae and no axillary lymphadenopathy Resp Effort & Inspection: normal respiratory effort Auscultation: clear to auscultation bilaterally Percussion: percussion normal Cardio Palpation: normal PMI Rate: regular rate Rhythm: regular rhythm Heart sounds: no murmurs and no rubs Peripheral pulses: Peripheral pulses 2+ throughout GI Inspection: Yes normal to inspection Palpation (GI): Soft to palpation, nontender, no guarding, not rigid and No hepatosplenomegaly present Percussion: Yes normal to percussion Auscultation: normal bowel sounds Rectal Exam - Female: deferred General: Yes bladder normal to palpation External Female Exam: No lesion Speculum Exam - Vagina: normal appearance of the vagina, normal palpation, normal vaginal discharge and not erythematous Speculum Exam - Cervix: normal appearance of the cervix and normal palpation Bimanual exam- vagina & uterus: normal bimanual exam, normal palpation, uterine size normal, bladder normal to palpation, consistency normal and normal palpation Bimanual Exam- Adnexa, other: normal adnexae, no masses and no tenderness Assessment & Plan Assessment & Plan (1) Well woman exam: Comment: High-risk breast cancer status Code(s): Z01.419 - Encounter for gynecological examination (general) (routine) without abnormal findings Category: Medical Plan: Co testing not indicated this year. Counseled the patient about the recommended dietary allowance of 1200 mg of Calcium & 600 IU of vitamin D. Instructions given the patient to schedule next screening mammogram in 11/11 , MRI is being ordered by Dr. Duke The patient was instructed to perform monthly self-breast exams and schedule annual exam in a year. All questions answered and the patient verbalized understanding. Coding Level of Care Code Est Pt Prev Care 40-64y(53644) Diagnoses Well woman exam Z01.419
[2024-04-16 14:18] VITALS: BP 108/76
--- OUTSIDE RECORDS SUMMARY | 2024-04-16 17:09 | XMS_ITS ---
Author Organization Gerber Ivan MD Address [address] [place] [phone] Care Team Providers Care Patent Prosecution Paralegal Name Role Phone Gerber Ivan Primary Care Provider REASON FOR VISIT note for work Encounters Encounter Location Date Provider Diagnosis Gerber Ivan MD [facility] [address] [place] [phone] 10/14/2023 Gerber Ivan Plan Of Treatment Next Appt Details Provider Name:Gerber burris, 03/23/2025 07:30:00 AM, [address] [place] [address], [address], [phone], Provider Name:Gerber burris, 03/30/2025 02:30:00 PM, [address] [place] [address], [address], [phone], Progress Notes * Kelly SAHA LDOB:[birth year] (58 yo F)Acc No.[id number]:10/14/2023 Patient:?Kelly Saha :1965???Age:58 Y???Sex:Female Address:[address] [place] [phone] * true * Date:? Generated for Christine hunt/Andres/Iraj on:?04/16/2024 05:09 PM EST
--- OUTSIDE RECORDS SUMMARY | 2024-04-16 17:09 | XMS_ITS | Patient Health Record ---
Author Organization Gerber Ivan MD Address [address] [place] [phone] Care Team Providers Care Stripping Machine Operator Name Role Phone Gerber Ivan Primary Care Provider Allergies No Known Allergies Results Component Value Reference Range Notes Complete Blood Count Auto Di ff Reviewed date:03/17/2024 01:27:38 PM Interpretation: Performing Lab:[facility], [address] [place] [phone] Notes/Report: White Blood Count 6.6 4.8-10.8 X10*3/uL [...] NRBC Abs Auto 0.000 0.0-0.012 X10*3/uL Comprehensive [place]. Panel Fa st Reviewed date:03/17/2024 04:32:37 PM Interpretation: Performing Lab:[facility], [address] [place] [phone] Notes/Report: Sodium 139 135-145 mmol/L Potassium 4.2 [...] Panel Reviewed date:03/17/2024 12:47:40 PM Interpretation: Performing Lab:[facility], [address] [place] [phone] Notes/Report: Triglycerides 107 <150 mg/dL Desirable Triglyceride: [...] Total Reviewed date:03/17/2024 12:47:54 PM Interpretation: Performing Lab:[facility], [address] [place] [phone] Notes/Report: Vitamin D 25-OH Total 53.6 >30 [...] Random Reviewed date:03/17/2024 04:30:37 PM Interpretation: Performing Lab:[facility], [address] [place] [phone] Notes/Report: Creatinine Urine 99.27 Microalbumin Urine 17.0 Microalbum/Creatinine Ratio Ur 17.1 <30 ug/mg cr Albumin/Creatinine Ratio Reference Ranges: Normal: < 30 ug/mg creatinine Microalbuminuria: 30 - 300 ug/mg creatinine Clinical Albuminuria: > 300 ug/mg creatinine Hemoglobin A1c Reviewed date:03/17/2024 12:40:35 PM Interpretation: Performing Lab:[facility], [address] [place] [phone] Notes/Report: Hemoglobin A1c % 5.9 <6.0 % [...] average glucose, using the formula of the G7J-Xleaqtt Average Glucose study (ADAG), Diabetes Care, Vol.31,#8, Sep. 2007 MR breast BI wo/w con Reviewed date:05/24/2023 02:15:27 PM Interpretation: Performing Lab: Notes/Report: [address] [address] Magnetic Resonance Report Signed Patient: Kelly Amaya MR#: [id number] : 1965 Acct:[id number] Age/Sex: 58 / F ADM Date: 05/15/23 Loc: .MRI Attending Dr: Bertram Duke MD Ordering Physician: Bertram Duke MD Date of Service: 05/15/23 Procedure(s): MR breast BI wo/w con Accession Number(s): [id number] cc: Gerber Ivan MD; Bertram Duke MD [...] suspicious mass-like enhancement. No suspicious mass-like or znc-hbjr-ufad enhancement. No abnormal skin thickening or nipple [...] in OV> 05/24/23 1144 DD/ 1520 TD/TT: Running Specialist: AMINA [address] [address] Magnetic Resonance Report Signed Patient: Kelly Amaya MR#: [id number] : 1965 Acct:[id number] Age/Sex: 58 / F ADM Date: 05/15/23 Loc: HO.MRI Attending Dr: Bertram Duke MD Ordering Physician: Bertram Duke MD Date of Service: 05/15/23 Procedure(s): MR dov wright BI wo/w con Accession Number(s): [id number] cc: Gerber Ivan MD; Bertram Duke MD [...] suspicious mass-like enhancement. No suspicious mass-like or exg-wzrl-hnqo enhancement. No abnormal skin thickening or nipple [...] in OV> 05/24/23 1144 DD/ 1520 TD/TT: Running Specialist: AMINA Complete Blood Count Auto Di ff Reviewed date:07/30/2023 04:27:08 PM Interpretation: Performing Lab:[facility], [address] [place] [phone] Notes/Report: White Blood Count 7.3 4.8-10.8 X10*3/uL [...] Panel Reviewed date:07/30/2023 04:28:29 PM Interpretation: Performing Lab:[facility], [address] [place] [phone] Notes/Report: Sodium 142 135-145 mmol/L Potassium 4.0 [...] Glomerular Filt Rate > 60 NOTE: For -Burkinan individuals, multiply the result by 1.210. Chronic [...] date:11/18/2023 05:48:24 PM Interpretation: Performing Lab: Notes/Report: [address] [place] [address] Mammography Report Signed Patient: Kelly Amaya MR#: [id number] : 1965 Acct:[id number] Age/Sex: 58 / F ADM Date: 11/18/23 Loc: ANNYO Attending Dr: Gerber Ivan MD Ordering Physician: Gerber Ivan MD Results: 2Be nign Findings Date of Service: 11/18/23 Follow Up: 1 Year From Orig ina Mammogram Procedure(s): MM tomosynthesis screening BI Accession Number(s): [id number] cc: Gerber Ivan MD EXAMINATION: MM SCREENING [...] 11/18/23 1538 DD/ 1315 TD/TT: 11/18/23 1339 Running Specialist: [facility] [address] [place], [place] [address] Mammography Report Signed Patient: Kelly Amaya MR#: [id number] : 1965 Acct:[id number] Age/Sex: 58 / F ADM Date: 11/18/23 Loc: MAMMO Attending Dr: Gerber Ivan MD Ordering Physician: Gerber Ivan MD Results: 2Be nign Findings Date of Service: 11/18/23 Follow Up: 1 Year From Orig inal Mammogram Procedure(s): MM tomosynthesis screening BI Accession Number(s): [id number] cc: Gerber Ivan MD EXAMINATION: MM SCREENING [...] 11/18/23 1538 DD/ 1315 TD/TT: 11/18/23 1339 Running Specialist: Complete Blood Count Auto Di ff Reviewed date:02/14/2024 04:49:50 PM Interpretation: Performing Lab:[facility], [address] [place] [phone] Notes/Report: White Blood Count 8.8 4.8-10.8 X10*3/uL [...] Panel Reviewed date:02/14/2024 02:56:30 PM Interpretation: Performing Lab:[facility], [address] [place] [phone] Notes/Report: Sodium 138 135-145 mmol/L Potassium 3.8 [...] Gold Reviewed date:02/14/2024 02:56:44 PM Interpretation: Performing Lab:[facility], [address] [place] [phone] Notes/Report: Hold Gold See Note Specimen held [...] Problem Status W/U Status Risk Notes Problem 49036130 Vitamin D defici ency (E55.9) Active confirmed Problem 461745744 Body mass index (BMI) 30.0-30.9, adult (Z68.30) Active confirmed Problem 15715791 Kidney stone (N20.0) Active confirmed Problem 0666282 Prediabetes (R73.09) Active confirmed Problem 01751826 Kidney stones (N20.0) Active confirmed Problem 39144446 Elevated BP (I10) Active confirmed Problem 748692383 Pure hypercholesterolemia (E78.00) Active confirmed Problem 10683423 Irritable bowel syndrome with both 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) Active confirmed Problem 775193886 Abnormal mammogr am of both breasts (R92.8) Active confirmed Problem 420701567 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) [...] Location Date Provider Diagnosis Gerber Ivan MD [address] [place] [address] Drive [address] [place] [phone] 03/17/2024 Gerber Ivan Blood tests for rout ine general physical examination Z00.00 ; Prediabetes R73.09 ; Pure hypercholesterolemia E78.00 and Vitamin D deficiency E55.9 Gerber Ivan MD [address] [place] [address] [address] [phone] 10/10/2023 Gerber Ivan Herpes zoster withou t complication B02.9 Gerber Ivan MD [address] [place] [address] [address] [phone] 03/24/2024 Gerber Ivan Annual physical exam Z00.00 ; Elevated BP I10 ; Venous olmstead R23.8 ; Pure hypercholesterolemia E78.00 ; Prediabetes R73.09 ; Vitamin D deficiency E55.9 ; Irritable bowel syndrome with both constipation and diarrhea K58.2 and Depression screening Z13.31 Gerber Ivan MD [address] [place] [address] Drive [address] [place] [phone] 10/14/2023 Gerber Ivan Assessments Encounter Date Diagnosis [...] Provider Name:Gerber Morales ier, 03/23/2025 07:30:00 AM, [address] [place] [address], [address], [phone], Provider Name:Gerber Morales ier, 03/30/2025 02:30:00 PM, [address] [place] [address], [place] [address], [place], [place], [phone], Insurance Providers Payer Name Payer Address Payer Phone Subscriber Number Group Number Insured Name Patient Relationship to Insured Coverage Start Date Coverage End Date [employer] [address] [place], [place] [phone] [id number] Kelly Amaya Self - patient is the insured Medical (General) History Medical History History ICD Code Colonoscopy 08/08/15 - Dr. Keila Espinosa h - repeat 10 years Surgical History Surgery Date(Month/Year) RT Breast Biopsy w/Needle Localization b y Dr. Doreen Mcmahon 11/2018
--- OUTSIDE RECORDS SUMMARY | 2024-04-16 17:09 | XMS_ITS ---
Author Organization Gerber Ivan MD Address [address] [place] [phone] Care Team Providers Care Envelope Stamping Machine Operator Name Role Phone Gerber Ivan Primary Care Provider Results Component Value Reference Range Notes Complete Blood Count Auto Di ff Reviewed date:03/17/2024 01:27:38 PM Interpretation: Performing Lab:[facility], [address] [place] [phone] Notes/Report: White Blood Count 6.6 4.8-10.8 X10*3/uL [...] NRBC Abs Auto 0.000 0.0-0.012 X10*3/uL Comprehensive [place]. Panel Fa st Reviewed date:03/17/2024 04:32:37 PM Interpretation: Performing Lab:[facility], [address] [place] [phone] Notes/Report: Sodium 139 135-145 mmol/L Potassium 4.2 [...] Panel Reviewed date:03/17/2024 12:47:40 PM Interpretation: Performing Lab:[address] [phone] Notes/Report: Triglycerides 107 <150 mg/dL Desirable Triglyceride: [...] Total Reviewed date:03/17/2024 12:47:54 PM Interpretation: Performing Lab:[address] [phone] Notes/Report: Vitamin D 25-OH Total 53.6 >30 [...] Random Reviewed date:03/17/2024 04:30:37 PM Interpretation: Performing Lab:[address] [phone] Notes/Report: Creatinine Urine 99.27 Microalbumin Urine 17.0 Microalbum/Creatinine Ratio Ur 17.1 <30 ug/mg cr Albumin/Creatinine Ratio Reference Ranges: Normal: < 30 ug/mg creatinine Microalbuminuria: 30 - 300 ug/mg creatinine Clinical Albuminuria: > 300 ug/mg creatinine Hemoglobin A1c Reviewed date:03/17/2024 12:40:35 PM Interpretation: Performing Lab:[facility], [address] [place] [phone] Notes/Report: Hemoglobin A1c % 5.9 <6.0 % [...] average glucose, using the formula of the P0V-Nkvjfkq Average Glucose study (ADAG), Diabetes Care, Vol.31,#8, Sep. 2007 REASON FOR VISIT yearly fasting labs Encounters Encounter Location Date Provider Diagnosis Gerber Ivan MD [address] [place] [address] [place] [phone] 03/17/2024 Gerber Ivan Blood tests for rout [...] Details Provider Name:Gerber burris, 03/23/2025 07:30:00 AM, [address] [place] [address], [address] [place] [address], [phone], Provider Name:Gerber burris, 03/30/2025 02:30:00 PM, [address] [place] [address], [address] [place] [address], [phone], Progress Notes * Kelly SAHA LDOB:[birth year] (59 yo F)Acc No.[id number]:03/17/2024 Progress Note Patient:?Kelly SAHA Provider:?Gerber Ivan MD :1965???Age:59 Y???Sex:Female D ate:03/17/2024 Address:[address] [place], [place] [phone] Subjective: * Chief Complaints: * ???1. Yearly fasting labs. * Medical History:? Objective: * Vitals:? Assessment: * Assessment: 1.?Blood tests for routine g eneral physical examination - Z00.00 (Primary)???2.?Prediabetes - R73.09???3.?Pure hypercholesterolemia - E78.00???4.?Vitamin D deficiency - E55.9??? Plan: * Treatment: 2.?Prediabetes?LAB: Complete Blood Count Auto Diff (Collection Date & Time - 03/17/2024 07:30 AM) ?LAB: [facility] [place]. Panel Fast (Collection Date & Time - [...] Time - 03/17/2024 07:30 AM) ?LAB: [facility] [place]. Panel Fast (Collection Date & Time - [...] Time - 03/17/2024 07:30 AM) ?LAB: [facility] [place]. Panel Fast (Collection Date & Time - 03/17/2024 07:30 AM) ?LAB: Lipid Panel (Collection Date & Time - 03/17/2024 07:30 AM) ?LAB: Vitamin D 25-OH Total (Collection Date & Time - 03/17/2024 07:30 AM) ?LAB: Microalbumin, Random (Collection Date & Time - 03/17/2024 07:30 AM) ?LAB: Hemoglobin A1c (Collection Date & Time - 03/17/2024 07:30 AM) * Procedure Codes:?13400 VENIP UNCT, ROUTINE* * * The named appointment provid er may or may not be the originator of this progress note, and it is not deemed complete until electronically signed by the appointment provider. Sign off status: Pending * Provider:?Gerber Ivan MD Date:?0 03/17/2024 Generated for Christine hunt/Andres/Gloriaitting on:?04/16/2024 05:09 PM EST
--- OUTSIDE RECORDS SUMMARY | 2024-04-16 17:10 | XMS_ITS ---
Author Organization Gerber Ivan MD Address [address] [place] [phone] Care Team Providers Care Food Processing Plant Manager Name Role Phone Gerber Ivan Primary Care Provider [phone] Allergies No Known Allergies Reason For [...] kg/m2 03/24/2024 weight is down 2 pounds [facility] 10-10-23 Encounters Encounter Location Date Provider Diagnosis Gerber Ivan MD [address] [place] [phone] 03/24/2024 Gerber Ivan Annual physical exam Z00.00 [...] Prediabetes stable, no need for medication at [facility] time Vitamin D deficiency stable, will contin ue current regiment Depression screening negative screen Referrals Referral Date Details 03/24/2024 03/24/2024, skin tag middle of her back, Bertram Duke Next Appt Details Provider Name:Gerber burris, 03/23/2025 07:30:00 AM, [address] [place] [address], [address], [place], [place], [phone], Provider Name:Gerber tuttler, 03/30/2025 02:30:00 PM, [address] [place] [address], [address], [place], [place], [phone], Progress Notes * Kelly SAHA LDOB:[birth year] (59 yo F)Acc No.[id number]:03/24/2024 Progress Notes Patient:?Kelly SAHA L Provider:?Gerber Ivan MD :1965???Age:59 Y???Sex:Female D ate:03/24/2024 Address:[address] [place], [place] [phone] Subjective: * Chief Complaints: * ???Annual visiit [...] and children. Marital status: . 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 Pets: none. Travel outside of the [place]: no. * Medications:?TakingClaritin 10 MG Tablet [...] Date & Time - 02/14/2024 01:50 PM)?ValueReference Range?Lcplgb821299-780 - mmol/L?Bilirubin Total0.50.0-1.0 - mg/dL?Aspartate Amino Wgifhqxjuzh279-14 - U/L?Alanine Tjqnuxbittnhouwr016-20 - U/L?Total Protein6.56.5-8.0 - g/dL?Albumin Level4.03.5-5.0 - g/dL?Alkaline Izqswmtavfv3144-523 - U/L?Potassium3.83.3-5.1 - mmol/L?Falyzwlt37842-619 - mmol/L?Carbon Rellxtq6219-44 - mmol/L?Anion Mww2356-98 -?Blood Urea Xtspdcom44F5-07 - mg/dL?Creatinine0.590.5-1.4 - mg/dL?Estimated Glomerular Filt Rate> 60-?Glucose Absown05817-737 - mg/dL?Calcium8.68.4-10.2 - mg/dL?Creatinine Clr Calc Spowpffz34.0- ???Lab:Christa Whitfield (Order Date - 02/14/2024) (Collection Date & Time - 02/14/2024 01:50 PM)?ValueReference Range?Christa WhitfieldSefarrah Note- ???Lab:Lipid Panel (Order Date - 03/17/2024) (Collection Date & Time - 03/17/2024 07:30 AM)?ValueReference Range?Tnkjgtwfvlnns465<150 - mg/dL?Vfaurouhrfj457<200 - mg/dL?LDL Cholesterol Hrqbgumzwl946U<100 - mg/dL?HDL Frkajwzojkb90>40 - mg/dL ???Lab:Vitamin D 25-OH Total (Order Date - 03/17/2024) (Collection Date & Time - 03/17/2024 07:30 AM)?ValueReference Range?Vitamin D 25-OH Total53.6>30 - ng/mL ???Lab:Hemoglobin A1c (Order Date - 03/17/2024) (Collection Date & Time - 03/17/2024 07:30 AM)?ValueReference Range?Hemoglobin A1c %5.9<6.0 - %?Estimated Average Nagkqln114- mg/dL ???Lab:Microalbumin, Random (Order Date 03/17/2024) (Collection Date & Time - 03/17/2024 07:30 AM)?ValueReference Range?Creatinine Urine99.27- mg/dL?Microalbumin Urine17.0- mg/L?Microalbum Creatinine Ratio Ur17.1<30 - ug/mg cr ???Lab:Comprehensive [place]. Panel Fast (Order Date - 03/17/2024) (Collection Date & Time - 03/17/2024 07:30 AM)?ValueReference Range?Iwbymg236012- 145 - mmol/L?Bilirubin Total0.60.0-1.0 - mg/dL?Aspartate Amino Nwihkjibmlx59C5-83 - U/L?Alanine Nuftfhtxycbtoqzz94H9-64 - U/L?Total Protein7.06.5-8.0 - g/dL?Albumin Level4.23.5-5.0 - g/dL?Alkaline Hrzxdqirypd9327-109 - U/L?Potassium4.23.3-5.1 - mmol/L?Ulgikqvw51827-341 - mmol/L?Carbon Imtsvqr4802-01 - mmol/L?Anion Urj7485-58 -?Blood Urea Zxtwyfmz67X6-15 - mg/dL?Creatinine0.680.5-1.4 - mg/dL?Estimated Glomerular Filt Rate> 60-?Glucose Fdzxhjz372H86-75 - mg/dL?Calcium8.68.4-10.2 - mg/dL * Examination: ???General [...] MD Date:?0 03/24/2024 Generated for Christine hunt/Andres/Gloriaitting on:?04/16/2024 05:09 PM EST History and Physical Notes * HPI [...]
== END 2024-04-16 14:52 | disposition home or self-care (01) ==
PROVIDERS: PCP Internal Medicine; Visit Provider Obstetrics & Gynecology
DX: Z01.419 Encounter for gynecological examination (general) (routine) without abnormal findings (principal)
CPT/HCPCS: 99396; 99459

== ENCOUNTER 2024-09-10 13:13 | Outpatient (AMB) | payer BC, SELFPAY ==
--- OUTSIDE RECORDS SUMMARY | 2023-10-14 04:10 | XMS_ITS ---
Author Organization Gerber Ivan MD Address [address] [place] [phone] Care Team Providers Care Box Car Washer Name Role Phone Gerber Ivan Primary Care Provider [phone] REASON FOR VISIT note for work Encounters Encounter Location Date Provider Diagnosis Gerber Ivan MD 10 [facility] [address] [place] [phone] 10/14/2023 Gerber Ivan Plan Of Treatment Next Appt Details Provider Name:Gerber burris, 03/23/2025 07:30:00 AM, [address] [place] [address], [address], [phone], Provider Name:Gerber burris, 03/30/2025 02:30:00 PM, [address] [place] [address], [address], [phone], Progress Notes * Kelly SAHA LDOB:[birth year] (58 yo F)Acc No.[id number]:10/14/2023 Patient: Kelly Charlton :1965 A ge:58 Y S ex:Female Address:[address] [place] [phone] * true * Date: Generated for Christine hunt/Andres/Iraj on: 09/10/2024 01:25 PM EDT
--- NOTE | 2024-09-10 13:24 | MHC.OFFVIS ---
Vital Signs 09/10/24 13:32 Height 5 ft 1 in Weight 161 lb 6 oz BMI 30.5 BP 158/72 H Blood Pressure Location Lt brachial Position Sitting Pulse 77 Intake Visit Reasons: 6 mth breast exam Intake Note: Patient is seen in office for 6 month follow up visit, breast exam. 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 Mcmahon.? She was evaluated by Dr. Cantor and started on tamoxifen for risk reduction.? Her Tyrer-Cuzick model lifetime risk of breast cancer was determined to be 31%.? She was placed on a high risk protocol with annual mammogram and breast MRIs alternating every 6 months. As a result an MRI of the breast was obtained 11/28/2020 revealed a 6 mm enhancing mass in the 12 o'clock position, 9 cm from the nipple with mixed enhancement kinetics.? This was felt to be suspicious (BI-RADS 4 left breast. BI-RADS 2 right breast).?MR guided core biopsy of the left breast was performed on 12/26/2020.? This revealed an intraductal papilloma.? She subsequent underwent a left breast lumpectomy with needle localization on 02/22/2021.? Pathology was benign and revealed no residual papilloma.? Her postop course was complicated by a postoperative hematoma requiring a visit to the emergency department.?? Her family history is significant for a paternal grandmother with breast cancer.? Menarche age 14, , menopause 53. Breast MRI performed on 05/15/2023 revealed an indeterminate enhancing nodule at the 4 o'clock position of the right breast. MR guided core biopsy of this lesion on 07/08/2023 revealed benign breast tissue with no evidence of malignancy. Her most recent mammogram of 11/18/2023 revealed no mammographic evidence of malignancy (BI-RADS 2). Her most recent breast MRI on 03/07/2024 revealed no MR specific evidence of malignancy (BI-RADS 2 bilaterally). She feels well and denies any ongoing breast symptoms. [facility] Medical History ASCUS of cervix with negative high risk HPV COVID-19 vaccine series completed Kidney stone Chronic idiopathic constipation Surgical History History of lumpectomy of left breast Hx of cystoscopy Hx of right breast biopsy Hx of section Hx of colonoscopy Family History Father CVD (cardiovascular disease) History of heart bypass surgery HTN (hypertension) Mother Endometrial cancer HTN (hypertension) Paternal Grandmother Breast cancer, Onset Age: 40 Maternal Grandfather Esophageal cancer Paternal Uncle Esophageal cancer Social History Household Members: Spouse Housing: House Are you a primary pediatric critical care nurse to a significant other at home: No Do you presently have visiting nurse or other home services: No Alcohol intake: current Alcohol intake frequency: a few times a week Alcohol type: wine Patient Tobacco Use Status: Never used Tobacco service: No Current occupational status: employed Female Reproductive History Menstrual Age of Menarche: 14 Review of Systems Const All systems reviewed & are unremarkable except as noted in HPI and below Physical Exam Const General: comfortable, well developed and alert Nutritional Appearance: well nourished Orientation/consciousness: patient oriented x3 Limitations: no limitations Chest Other: Left breast: No new skin change, no nipple retraction, no nipple discharge, no palpable mass, no enlarged lymph nodes. Right breast: No new skin change, no nipple retraction, no nipple discharge, no palpable mass, no enlarged lymph nodes Resp Other: Breathing comfortably on room air, no respiratory distress Effort & Inspection: normal respiratory effort Skin Other: Warm, dry, no rashes Neuro Other: Mobility Assessment: 1. 3 meter assessment time (seconds): 5 2. Gait observations: Normal balance and gait General: patient oriented x3 Extrem Other: No edema in the left upper extremity. Assessment & Plan Assessment & Plan (1) At high risk for breast cancer: Code(s): Z91.89 - Other specified personal risk factors, not elsewhere classified Category: Medical (2) Atypical ductal hyperplasia of right breast: Code(s): N60.91 - Unspecified benign mammary dysplasia of right breast Category: Medical Plan 59-year-old female patient determined to be at high risk for breast cancer with a history of atypical ductal hyperplasia of the right breast. She feels well and denies any ongoing breast symptoms. Her most recent breast MRI performed on 03/07/2024 revealed no MR specific evidence of malignancy in either breast (BI-RADS 2 bilaterally). Mammogram of 11/18/2023 revealed no mammographic evidence of malignancy (BI-RADS 2). She is scheduled for follow-up mammogram on 11/19/2024. Examination today revealed no suspicious findings in either breast. I recommended follow-up examination in 1 year, sooner PRN. Coding Level of Care Code Est Pt Level 3 (13176) Complex EM visit Add On G2211 Diagnoses At high risk for breast cancer Z91.89 Atypical ductal hyperplasia of right breast N60.91
[2024-09-10 13:32] VITALS: BP 158/72; PULSE 77; BMI 30.5
== END 2024-09-10 13:35 | disposition home or self-care (01) ==
LOC: HO.HGS 13:14
PROVIDERS: PCP Internal Medicine; Visit Provider Surgery
DX: Z91.89 Other specified personal risk factors, not elsewhere classified (principal); N60.91 Unspecified benign mammary dysplasia of right breast
CPT/HCPCS: 99213

== ENCOUNTER 2024-11-19 13:08 | Outpatient (REF) | payer BC, SELFPAY ==
--- OUTSIDE RECORDS SUMMARY | 2023-10-10 07:45 | XMS_ITS ---
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 shingles left side of back x 3days Medications Medication SIG (Take, Route, Frequency, Duration) Notes Start Date End Date Status Hyoscyamine Sulfate 0.125 MG 1 tablet on the tongue and allow to dissolve as needed Orally one or twice as needed per day for 30 days 11/19/2017 Not-Taking Vitamin D-3 1000 UNIT 2 capsule Orally O nce a day 11/28/2018 Active Tamoxifen Citrate 20 MG 1 tablet Orally Once a day 02/12/2019 Active Claritin 10 MG 1 tablet Orally Once a day Active Valtrex 1 GM 1 tablet Orally 3 ti mes a day for 7 days 10/10/2023 Active Vital Signs Blood pressure systolic 124 mm Hg 10/10/19 24 Blood pressure diastolic 70 mm Hg 024 Height 62 in 10/10/2023 Weight 160 lbs 10/10/2023 BMI 29.26 kg/m2 10/10/2023 Encounters Encounter Location Date Provider Diagnosis Gerber Ivan MD [address] [place] [address] [place] [phone] 10/10/2023 Gerber Ivan Herpes zoster withou t complication B02.9 Assessments Encounter Date Diagnosis (ICD Code) Assessment Notes Treatment Notes Treatment Clinical Notes Section Notes 10/10/2023 Herpes zoster without complication (ICD-10 - B02.9) patient verbalized understanding of mediction and directions for use Plan Of Treatment Medication Medication Name Sig Start Date Stop Date Notes Valtrex 1 GM 1 tablet Orally 3 times a day for 7 days 09/19 Treatment Notes Assessment Notes Herpes zoster without complication patie nt verbalized understanding of mediction and directions for use Next Appt Details Provider Name:Gerber burris, 03/23/2025 07:30:00 AM, [address] [place] [address], [address], [phone], Provider Name:Gerber burris, 03/30/2025 02:30:00 PM, [address] [place] [address], [place], [place], [phone], Progress Notes * Kelly SAHA LDOB:[birth year] (58 yo F)Acc No.[id number]:10/10/2023 Progress Notes Patient: Kelly Charlton Provider: Danielle Ivan MD :1965 A ge:58 Y S ex:Female Date:10/10/2023 Address:[address] [place], [place] [phone] Subjective: * Chief Complaints: * ? shingles left side of back x 3days * HPI: S ymptom(s): patient is a 58 yo femalehad covid beginning of month. 4days ago started with pain and now with a rash, left side of back. * ROS: G eneral/Constitutional: Denies C hills. D enies F atigue. D enies F ever. D enies H eadache. E NT: Patient denies d ecreased sense of smell , any loss of taste , sore throat. D enies S ore throat. R espiratory: Denies C ough. D enies S hortness of breath at rest. D enies S hortness of breath with exertion. M usculoskeletal: Patient denies m uscle aches. P eripheral Vascular: Patient denies r ed and blue toes. * Medical History: * Surgical History: * Hospitalization/Major Diagno stic Procedure: * Medications: T akingClaritin 10 MG Tablet 1 tablet Orally Once a dayTamoxifen Citrate 20 MG Tablet 1 tablet Orally Once a dayVitamin D-3 1000 UNIT Capsule 2 capsule Orally Once a dayTaking Claritin 10 MG Tablet 1 tablet Orally Once a dayTaking Tamoxifen Citrate 20 MG Tablet 1 tablet Orally Once a dayTaking Vitamin D-3 1000 UNIT Capsule 2 capsule Orally Once a dayNot-Taking/PRNHyoscyamine Sulfate 0.125 MG Tablet Disintegrating 1 tablet on the tongue and allow to dissolve as needed Orally one or twice as needed per dayMedication List reviewed and reconciled with the patientNot-Taking/PRN Hyoscyamine Sulfate 0.125 MG Tablet Disintegrating 1 tablet on the tongue and allow to dissolve as needed Orally one or twice as needed per dayMedication List reviewed and reconciled with the patient Objective: * Vitals: H t: 62, Wt:160, BMI:29.26, BP:124/70. * Examination: G eneral Examination: GENERAL APPEARANCE: well developed, well nourished. SKIN: abnormal with lesions on back conistant with shingles. Assessment: * Assessment: 1. H erpes zoster without complication - B02.9 (Primary) Plan: * Treatment: * Procedure Codes: * * Sign off status: Completed true * Provider: Danielle Ivan MD Date: 0 10/10/2023 Generated for Christine hunt/Andres/Iraj on: 1 02:33 PM EDT History and Physical Notes * HPI (History of Present Illness) Category Sub-Category Detail Notes Category Not es Symptom(s) patient is a 58 yo femalehad covid beginning of month. 4days ago started with pain and now with a rash, left side of back. Examination Category Sub-Category Detail Notes Category Not es General Examination GENERAL APPEARANCE: well developed , well nourished SKIN: abnormal with lesion s on back conistant with shingles
--- OUTSIDE RECORDS SUMMARY | 2023-10-14 04:10 | XMS_ITS ---
Author Organization Gerber Ivan MD Address [address] [place] [phone] Care Team Providers Care Hospital Chief Financial Officer Name Role Phone Gerber Ivan Primary Care Provider REASON FOR VISIT note for work Encounters Encounter Location Date Provider Diagnosis Gerber Ivan MD 10 [facility] [address] [place] [address] [phone] 10/14/2023 Gerber Ivan Plan Of Treatment Next Appt Details Provider Name:Gerber burris, 03/23/2025 07:30:00 AM, [address] [place] [address], [address], [phone], Provider Name:Gerber burris, 03/30/2025 02:30:00 PM, [address] [place] [address], [address], [phone], Progress Notes * Kelly SAHA LDOB:[birth year] (58 yo F)Acc No.[id number]:10/14/2023 Patient: Kelly Charlton :1965 A ge:58 Y S ex:Female Address:[address] [place] [id number] * true * Date: Generated for Christine hunt/Andres/Iraj on: 02:33 PM EDT
--- OUTSIDE RECORDS SUMMARY | 2024-03-17 03:30 | XMS_ITS ---
Author Organization Gerber Ivan MD Address [address] [place] [phone] Care Team Providers Care Coat Tailor Name Role Phone Gerber Ivan Primary Care Provider [phone] Results Component Value Reference Range Notes Complete Blood Count Auto Di ff Reviewed date:03/17/2024 01:27:38 PM Interpretation: Performing Lab:[facility], [address] [place] [phone] Notes/Report: White Blood Count 6.6 4.8-10.8 X10*3/uL Red Blood Count 4.23 4.20-5.50 X10*6/uL Hemoglobin 12.9 12.0-16.0 g/dl Hematocrit 40.2 37.0-47.0 % Mean Corpuscular Volume 95.0 80.0-98.0 fL Mean Corpuscular Hemoglobin 30.5 27.0-33.0 pg Mean Corpuscular HGB Conc 32.1 31.0-35.0 g/dl Red Cell Distribution Width 13.0 11.0-16.0 % Platelet Count 274 160-400 X10*3/uL Mean Platelet Volume 10.1 9.4-12.3 fL Neutrophils Percent Auto 50.6 45-73 % Imm Gran Pct Auto 0.2 0.0-0.4 % Lymphocytes Percent Auto 36.7 20-40 % Monocytes Percent Auto 10.5 2-11 % Eosinophils Percent Auto 1.5 0-4 % Basophils Percent Auto 0.5 0-2 % NRBC Pct Auto 0.0 0.0-0.2 /100WBC Neutrophils Absolute Auto 3.3 2.0-8.3 x10*3/u L Imm Gran Abs Auto 0.01 0.00-0.03 X10*3/uL Lymphocytes Absolute Auto 2.4 1.2-4.9 X10*3/u L Monocytes Absolute Auto 0.7 0.1-1.2 X10*3/uL Eosinophils Absolute Auto 0.1 0.0-0.4 X10*3/u L Basophils Absolute Auto 0.0 0.0-0.2 X10*3/uL NRBC Abs Auto 0.000 0.0-0.012 X10*3/uL Comprehensive [place]. Panel Fa st Reviewed date:03/17/2024 04:32:37 PM Interpretation: Performing Lab:[facility], [address] [place] [phone] Notes/Report: Sodium 139 135-145 mmol/L Potassium 4.2 3.3-5.1 mmol/L Chloride 107 96-108 mmol/L Carbon Dioxide 24 22-29 mmol/L Anion Gap 12 12-20 Blood Urea Nitrogen 17 9-16 mg/dL Creatinine 0.68 0.5-1.4 mg/dL Estimated Glomerular Filt Rate > 60 Chronic Kidney Disease: Estimated GFR < 60 mL/min/1.73m2 Severe Kidney Disease: Estimated GFR < 15 mL/min/1.73m2 Glucose Fasting 114 60-99 mg/dL A fasting glucose from 100-125 mg/dl is considered impaired (pre-diabetes). Calcium 8.6 8.4-10.2 mg/dL Bilirubin Total 0.6 0.0-1.0 mg/dL Aspartate Amino Transferase 36 5-31 U/L Alanine Aminotransferase 32 0-31 U/L Total Protein 7.0 6.5-8.0 g/dL Albumin Level 4.2 3.5-5.0 g/dL Alkaline Phosphatase 50 39-117 U/L Lipid Panel Reviewed date:03/17/2024 12:47:40 PM Interpretation: Performing Lab:[address] [phone] Notes/Report: Triglycerides 107 <150 mg/dL Desirable Triglyceride: less than 150 mg/dL Borderline High Triglyceride 150-199 mg/dL High Triglyceride: 200-499 mg/dL Very High Triglyceride: greater than or equal to 5OO mg/dL Cholesterol 192 <200 mg/dL Desirable Cholesterol: less than 200 mg/dL Borderline High Cholesterol: 200-239 mg/dL High Cholesterol: greater than 239 mg/dL LDL Cholesterol Calculated 117 <100 mg/dL Desirable LDL: less than 100 mg/dL Near Optimal/Above Optimal LDL: 110-129 mg/dL Borderline High LDL: 130-159 mg/dL High LDL: 160-189 mg/dL Very High LDL: greater than or equal to 190 mg/dL HDL Cholesterol 54 >40 mg/dL Desirable HDL: greater than 40 mg/dL Note: This HDL assay may give artificially low results in patients with liver disease. Vitamin D 25-OH Total Reviewed date:03/17/2024 12:47:54 PM Interpretation: Performing Lab:[address] [phone] Notes/Report: Vitamin D 25-OH Total 53.6 >30 ng/mL Health Based Reference Values* < 20 ng/mL Deficient 20-30 ng/mL Insufficient > 30 ng/mL Sufficient *Kimberly MANCINI. N Engl J Med. 2007;357:266-280 Care must be taken in interpreting Vitamin D results from different laboratories and methodologies. Published data demonstrated that results from patients undergoing hemodialysis may show a negative bias when tested with various automated 25-OH vitamin D assays when compared to LC-MS/MS. When testing samples from patients whose predominant form of Vitamin D is Vitamin D2, such as patients receiving Vitamin D2 supplementation, results that are subtherapeutic should be confirmed with another method such as LC-MS/MS. Microalbumin, Random Reviewed date:03/17/2024 04:30:37 PM Interpretation: Performing Lab:[address] [phone] Notes/Report: Creatinine Urine 99.27 Microalbumin Urine 17.0 Microalbum/Creatinine Ratio Ur 17.1 <30 ug/mg cr Albumin/Creatinine Ratio Reference Ranges: Normal: < 30 ug/mg creatinine Microalbuminuria: 30 - 300 ug/mg creatinine Clinical Albuminuria: > 300 ug/mg creatinine Hemoglobin A1c Reviewed date:03/17/2024 12:40:35 PM Interpretation: Performing Lab:[facility], [address] [place] [phone] Notes/Report: Hemoglobin A1c % 5.9 <6.0 % Hemoglobin A1C Reference Range Adults: 4.8 - 6.0 % Non diabetic: < 6.0 % Goal: < 7.0 % Additional Action Suggested: > 8.0 % Note: Hemoglobin A1c results are invalid for patients with abnormal amounts of HbF. Blood transfusions may impact the HbA1c concentration in the patient sample. Estimated Average Glucose 123 eAG = Estimated average glucose which is %A1C expressed as average glucose, using the formula of the O6W-Iwkpzrs Average Glucose study (ADAG), Diabetes Care, Vol.31,#8, Sep. 2007 REASON FOR VISIT yearly fasting labs Encounters Encounter Location Date Provider Diagnosis Gerber Ivan MD [address] [place] [address] [place] [phone] 03/17/2024 Gerber Ivan Blood tests for rout ine general physical examination Z00.00 ; Prediabetes R73.09 ; Pure hypercholesterolemia E78.00 and Vitamin D deficiency E55.9 Assessments Encounter Date Diagnosis (ICD Code) Assessment Notes Treatment Notes Treatment Clinical Notes Section Notes 03/17/2024 Blood tests for rout ine general physical examination (ICD-10 - Z00.00) 03/17/2024 Prediabetes (ICD-10 - R73.09) 03/17/2024 Pure hypercholesterolemia (ICD-10 - E78.00) 03/17/2024 Vitamin D deficiency (ICD-10 - E55.9) Plan Of Treatment Next Appt Details Provider Name:Gerber burris, 03/23/2025 07:30:00 AM, [address] [place] [address], [address] [place] [address], [phone], Provider Name:Gerber burris, 03/30/2025 02:30:00 PM, [address] [place] [address], [address] [place] [address], [phone], Progress Notes * Kelly SAHA LDOB:[birth year] (59 yo F)Acc No.[id number]:03/17/2024 Progress Note Patient: Kelly ZELAYA Provider: Danielle Ivan MD :1965 A ge:59 Y S ex:Female Date:03/17/2024 Address:[address] [place], [place] [phone] Subjective: * Chief Complaints: * 1 . Yearly fasting labs. * Medical History: Objective: * Vitals: Assessment: * Assessment: 1. B lood tests for routine general physical examination - Z00.00 (Primary) 2 .?Prediabetes - R73.09 3 . P ure hypercholesterolemia - E78.00 ?4. V itamin D deficiency - E55.9 Plan: * Treatment: 2. P rediabetes L AB: Complete Blood Count Auto Diff (Collection Date & Time - 03/17/2024 07:30 AM) L AB: Comprehensive [place]. Panel Fast (Collection Date & Time - 03/17/2024 07:30 AM) L AB: Lipid Panel (Collection Date & Time - 03/17/2024 07:30 AM) L AB: Vitamin D 25-OH Total (Collection Date & Time - 03/17/2024 07:30 AM) L AB: Microalbumin, Random (Collection Date & Time - 03/17/2024 07:30 AM) L AB: Hemoglobin A1c (Collection Date & Time - 03/17/2024 07:30 AM) 3. P ure hypercholesterolemia L AB: Complete Blood Count Auto Diff (Collection Date & Time - 03/17/2024 07:30 AM) L AB: Comprehensive [place]. Panel Fast (Collection Date & Time - 03/17/2024 07:30 AM) L AB: Lipid Panel (Collection Date & Time - 03/17/2024 07:30 AM) L AB: Vitamin D 25-OH Total (Collection Date & Time - 03/17/2024 07:30 AM) L AB: Microalbumin, Random (Collection Date & Time - 03/17/2024 07:30 AM) L AB: Hemoglobin A1c (Collection Date & Time - 03/17/2024 07:30 AM) 4. V itamin D deficiency L AB: Complete Blood Count Auto Diff (Collection Date & Time - 03/17/2024 07:30 AM) L AB: Comprehensive [place]. Panel Fast (Collection Date & Time - 03/17/2024 07:30 AM) L AB: Lipid Panel (Collection Date & Time - 03/17/2024 07:30 AM) L AB: Vitamin D 25-OH Total (Collection Date & Time - 03/17/2024 07:30 AM) L AB: Microalbumin, Random (Collection Date & Time - 03/17/2024 07:30 AM) L AB: Hemoglobin A1c (Collection Date & Time - 03/17/2024 07:30 AM) * Procedure Codes: 3 6415 VENIPUNCT, ROUTINE* * * The named appointment provid er may or may not be the originator of this progress note, and it is not deemed complete until electronically signed by the appointment provider. Sign off status: Pending * Provider: Danielle Ivan MD Date: 0 03/17/2024 Generated for Christine hunt/Andres/Gloriaitting on: 1 02:33 PM EDT
--- OUTSIDE RECORDS SUMMARY | 2024-03-24 10:30 | XMS_ITS ---
Author Organization Gerber Ivan MD Address [address] [place] [phone] Care Team Providers Care Cocktail Server Name Role Phone Gerber Ivan Primary Care Provider Allergies No Known Allergies Reason For Referral Reason skin tag middle of h er back Diagnosis 1 Skin tag (L91.8) Referral Organization Gerber Ivan MD Referring Provider First Name Gerber Referring Provider Last Name Moncho Referring Provider Speciality Internal M edicine Referred Provider Bertram Duke Referred Provider Specialty Surgery General Notes Leann Zamora 0 03/24/2024 03:16:23 PM called patient on both phone numbers left voice messages, Leann Zamora 03/26/2024 09:19:46 AM >left patient another message, Leann Zamora 03/27/2024 08:24:19 AM >patient aware of appt Referral Priority Routine Referral Appointment Date 03/31/2024 REASON FOR VISIT annual visiit Medications Medication SIG (Take, Route, Frequency, Duration) Notes Start Date End Date Status Hyoscyamine Sulfate 0.125 MG 1 tablet on the tongue and allow to dissolve as needed Orally one or twice as needed per day for 30 days 11/19/2017 Not-Taking Claritin 10 MG 1 tablet Orally Once a day Active Vitamin D-3 1000 UNIT 2 capsule Orally O nce a day 11/28/2018 Active Social History Tobacco Use: Social History Observation [...] Never (0 point) Points 4 Interpretation Positive Vital Signs Blood pressure systolic 122 mm Hg 03/24/19 25 Blood pressure diastolic 76 mm Hg 025 Height 62 in 03/24/2024 Weight 158 lbs 03/24/2024 BMI 28.9 kg/m2 03/24/2024 weight is down 2 pounds [facility] 10-10-23 Encounters Encounter Location Date Provider Diagnosis Gerber Ivan MD [address] [place] [phone] 03/24/2024 Gerber Ivan Annual physical exam Z00.00 ; Elevated BP I10 ; Venous olmstead R23.8 ; Pure hypercholesterolemia E78.00 ; Prediabetes R73.09 ; Vitamin D deficiency E55.9 ; Irritable bowel syndrome with both constipation and diarrhea K58.2 and Depression screening Z13.31 Assessments Encounter Date Diagnosis (ICD Code) Assessment Notes Treatment Notes Treatment Clinical Notes Section Notes 03/24/2024 Annual physical exam (ICD-10 - Z00.00) labs reviewed and discussed with patient 03/24/2024 Elevated BP (ICD-10 - I10) doing well, will contnue current regiment and will continue to monitor 03/24/2024 Venous olmstead (ICD-10 - R23.8) observaition. if it gets bigger can treat with laser for cosmetic purpases 03/24/2024 Pure hypercholesterolemia (ICD-10 - E78.00) stable, will continue current regiment 03/24/2024 Prediabetes (ICD-10 - R73.09) stable, no need for medication at thhis time 03/24/2024 Vitamin D deficiency (ICD-10 - E55.9) stable, will continue current regiment 03/24/2024 Irritable bowel synd karina with both constipation and diarrhea (ICD-10 - K58.2) 03/24/2024 Depression screening (ICD-10 - Z13.31) negative screen Plan Of Treatment Medication Medication Name Sig Start Date Stop Date Notes Vitamin D-3 1000 UNIT 2 capsule Orally Once a day 11/29/19 19 Treatment Notes Assessment Notes Annual physical exam labs reviewed and d iscussed with patient Elevated BP doing well, will con tnue current regiment and will continue to monitor Venous olmstead observaition. if it gets bigger can treat with laser for cosmetic purpases Pure hypercholesterolemia stable, will c ontinue current regiment Prediabetes stable, no need for medication at [facility] time Vitamin D deficiency stable, will contin ue current regiment Depression screening negative screen Referrals Referral Date Details 03/24/2024 03/24/2024, skin tag middle of her back, Bertram Duke Next Appt Details Provider Name:Gerber burris, 03/23/2025 07:30:00 AM, [address] [place] [address], [address] [place] [address], [phone], Provider Name:Gerber tuttler, 03/30/2025 02:30:00 PM, [address] [place] [address], Suite [facility], [place], [place], [phone], Progress Notes * YIFANKelly ATKINSON LDOB:[birth year] (59 yo F)Acc No.[id number]:03/24/2024 Progress Notes Patient: Kelly ZELAYA Provider: Danielle Ivan MD :1965 A ge:59 Y S ex:Female Date:03/24/2024 Address:[address] [place], [place] [phone] Subjective: * Chief Complaints: * A nnual visiit * HPI: D epression Screening: PHQ-9 L ittle interest or pleasure in doing things N ot at all, F eeling down, depressed, or hopeless N ot at all, T rouble falling or staying asleep, or sleeping too much N ot at all, F eeling tired or having little energy N ot at all, P oor appetite or overeating N ot at all, F eeling bad about yourself or that you are a failure, or have let yourself or your family down N ot at all, T rouble concentrating on things, such as reading the newspaper or watching television N ot at all, M oving or speaking so slowly that other people could have noticed; or the opposite, being so fidgety or restless that you have been moving around a lot more than usual N ot at all, T houghts that you would be better off or of hurting yourself in some way N ot at all, T otal Score 0 . I nterpretation and Intervention D epression Screening Findings N egative, F ollow-Up for Depression : review of PHQ-9 found negative result, no follow-up needed. C ommunication Needs: Communication Needs D oes the patient have a hearing impairment N o, D oes the patient have a vision impairment? Y es, I f yes, what is the vision impairment? G lasses, D oes the patient have a cognition impairment? N o. F all Risk: History H ave you had any falls with injury in the past year? N o, H ave you had two or more falls in the past year? N o. S DEVORAH Questions: SDOH Questions I n the past year have you been worried about losing housing? N o, I n the past year have you or any family members you live with been unable to get any of the following when it was really needed? Check all that apply: N one. S ymptom(s): patient is a 59 yo female here for yearly follow up with review of recent abs and follow up of chronioc issues. has been doing well. * ROS: G eneral/Constitutional: Patient denies f atigue, headache. C hange in appetite?denies. C hills d enies. F ever d enies. O phthalmologic: Blurred vision d enies. D ischarge d enies. P ain d enies. E NT: Patient denies d ecreased sense of smell, any loss of taste, sore throat. D ecreased hearing d enies. S ore throat d enies. S wollen glands?denies. E ndocrine: Cold intolerance d enies. E xcessive thirst d enies. H eat intolerance d enies. W eight loss d enies. R espiratory: Cough d enies. S hortness of breath at rest d enies. S hortness of breath with exertion d enies. W heezing d enies. C ardiovascular: Chest pain at rest d enies. C hest pain with exertion?denies. I rregular heartbeat d enies. S hortness of breath d enies. ? G astrointestinal: Abdominal pain d enies. C hange in bowel habits d enies. D iarrhea d enies. N ausea d enies. R ectal bleeding d enies. V omiting d enies . G enitourinary: Blood in urine d enies. D ifficulty urinating d enies. F requent urination d enies. M usculoskeletal: Patient denies m uscle aches. P ainful joints d enies. W eakness d enies. P eripheral Vascular: Patient denies r ed and blue toes. S kin: Dry skin d enies. I tching d enies. D enies?Mole(s), changes in moles, new moles or any lesions of concern. D enies P hotosensitivity. R flip d enies. N eurologic: Dizziness d enies. F ainting d enies. H eadache?denies. * Medical History: * Surgical History: * Hospitalization/Major Diagno stic Procedure: * Family History: F ather: alive 78 yrs, diagnosed with Hypertension. M other: 62 yrs, diagnosed with Cancer. 1 sister(s) . 1 son(s) , 2 daughter(s) . . Mother- [place], Denies mental health/substance abuse family history, Denies mental health/substance abuse family history, No pertinent family medical history. * Social History: T obacco Use: T obacco Use/Smoking P atient is a n onsmoker, A dditional Findings: Tobacco Non-User C urrent non-smoker, currently using no form of tobacco. D rugs/Alcohol: A lcohol Screen D id you have a drink containing alcohol in the past year? Y es, H ow often did you have a drink containing alcohol in the past year? 4 or more times a week (4 points), H ow many drinks did you have on a typical day when you were drinking in the past year? 1 or 2 drinks (0 point), H ow often did you have 6 or more drinks on one occasion in the past year? N ever (0 point), P oints 4 , I nterpretation P ositive. M iscellaneous: C affeine: yes, frequency:, 1-2 cups per day. Children: yes. Community involvements: no. Exercise: yes, walks everyday for 1 hour. Housing: owning. Living with: spouse and children. Marital status: . 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 Pets: none. Travel outside of the [place]: no. * Medications: T akingClaritin 10 MG Tablet 1 tablet Orally Once a day Vitamin D-3 1000 UNIT Capsule 2 capsule Orally Once a day Taking Claritin 10 MG Tablet 1 tablet Orally Once a day Taking Vitamin D-3 1000 UNIT Capsule 2 capsule Orally Once a day Not-Taking/PRNHyoscyamine Sulfate 0.125 MG Tablet Disintegrating 1 tablet on the tongue and allow to dissolve as needed Orally one or twice as needed per day Not-Taking/PRN Hyoscyamine Sulfate 0.125 MG Tablet Disintegrating 1 tablet on the tongue and allow to dissolve as needed Orally one or twice as needed per day DiscontinuedTamoxifen Citrate 20 MG Tablet 1 tablet Orally Once a day Valtrex 1 GM Tablet 1 tablet Orally 3 times a day Medication List reviewed and reconciled with the patientDiscontinued Tamoxifen Citrate 20 MG Tablet 1 tablet Orally Once a day Discontinued Valtrex 1 GM Tablet 1 tablet Orally 3 times a day Medication List reviewed and reconciled with the patient * Allergies: N .K.D.A.yes[Allergies Verified] Objective: * Vitals: H t: 62, Wt: 158, BMI:28.9, BP:122/76, Wt-k.67. weight is down 2 pounds since 10-10-23. * P ast Orders: Lab:Complete Blood Count Aut o Diff * Collection Date 03/17/2024 02/14/2024 Collection Time 07:30 AM 01:50 PM Order Date 03/17/2024 02/14/2024 White Blood Count 6.6 (Ref Range: 4.8-10.8 X10*3/uL) 8.8 (Ref Range: 4.8-10.8 X10*3/uL) Red Blood Count 4.23 (Ref Range: 4.20-5.50 X10*6/uL) 3.96 L (Ref Range: 4.20-5.50 X10*6/uL) Hemoglobin 12.9 (Ref Range: 12.0-16.0 g/dl) 12.3 (Ref Range: 12.0-16.0 g/dl) Hematocrit 40.2 (Ref Range: 37.0-47.0 %) 37.0 (Ref Range: 37.0-47.0 %) Mean Corpuscular Volume 95.0 (Ref Range: 80.0-98.0 fL) 93.4 (Ref Range: 80.0-98.0 fL) Mean Corpuscular Hemoglobin 30.5 (Ref Range: 27.0-33.0 pg) 31.1 (Ref Range: 27.0-33.0 pg) Mean Corpuscular HGB Conc 32.1 (Ref Range: 31.0-35.0 g/dl) 33.2 (Ref Range: 31.0-35.0 g/dl) Red Cell Distribution Width 13.0 (Ref Range: 11.0-16.0 %) 12.6 (Ref Range: 11.0-16.0 %) Platelet Count 274 (Ref Range: 160-400 X10*3/uL) 231 (Ref Range: 160-400 X10*3/uL) Mean Platelet Volume 10.1 (Ref Range: 9.4-12.3 fL) 9.4 (Ref Range: 9.4-12.3 fL) Neutrophils Percent Auto 50.6 (Ref Range: 45-73 %) 55.3 (Ref Range: 45-73 %) Imm Gran Pct Auto 0.2 (Ref Range: 0.0-0.4 %) 0.5 H (Ref Range: 0.0-0.4 %) Lymphocytes Percent Auto 36.7 (Ref Range: 20-40 %) 35.0 (Ref Range: 20-40 %) Monocytes Percent Auto 10.5 (Ref Range: 2-11 %) 8.0 (Ref Range: 2-11 %) Eosinophils Percent Auto 1.5 (Ref Range: 0-4 %) 0.7 (Ref Range: 0-4 %) Basophils Percent Auto 0.5 (Ref Range: 0-2 %) 0.5 (Ref Range: 0-2 %) NRBC Pct Auto 0.0 (Ref Range: 0.0-0.2 /100WBC) 0.0 (Ref Range: 0.0-0.2 /100WBC) Neutrophils Absolute Auto 3.3 (Ref Range: 2.0-8.3 x10*3/uL) 4.9 (Ref Range: 2.0-8.3 x10*3/uL) Imm Gran Abs Auto 0.01 (Ref Range: 0.00-0.03 X10*3/uL) 0.04 H (Ref Range: 0.00-0.03 X10*3/uL) Lymphocytes Absolute Auto 2.4 (Ref Range: 1.2-4.9 X10*3/uL) 3.1 (Ref Range: 1.2-4.9 X10*3/uL) Monocytes Absolute Auto 0.7 (Ref Range: 0.1-1.2 X10*3/uL) 0.7 (Ref Range: 0.1-1.2 X10*3/uL) Eosinophils Absolute Auto 0.1 (Ref Range: 0.0-0.4 X10*3/uL) 0.1 (Ref Range: 0.0-0.4 X10*3/uL) Basophils Absolute Auto 0.0 (Ref Range: 0.0-0.2 X10*3/uL) 0.0 (Ref Range: 0.0-0.2 X10*3/uL) NRBC Abs Auto 0.000 (Ref Range: 0.0-0.012 X10*3/uL) 0.000 (Ref Range: 0.0-0.012 X10*3/uL) ???Lab:Comprehensive Met. Panel (Order Date - 02/14/2024) (Collection Date & Time - 02/14/2024 01:50 PM)?ValueReference Range?Ltevpg816042-753 - mmol/L?Bilirubin Total0.50.0-1.0 - mg/dL?Aspartate Amino Wkxmesjwdxh322-54 - U/L?Alanine Vscdqlkqkedpwdzh601-50 - U/L?Total Protein6.56.5-8.0 - g/dL?Albumin Level4.03.5-5.0 - g/dL?Alkaline Mbhzagljwyr2577-796 - U/L?Potassium3.83.3-5.1 - mmol/L?Rhicbnje056 96-108 - mmol/L?Carbon Llqxrty2575-36 - mmol/L?Anion Mxw5061-43 - ?Blood Urea Ihrbzblx65D8-60 - mg/dL?Creatinine0.590.5-1.4 - mg/dL ?Estimated Glomerular Filt Rate> 60-?Glucose Xsmknf25413-059 - mg/dL?Calcium8.68.4-10.2 - mg/dL?Creatinine Clr Calc Lglxprgq87.0- ???Lab:Christa Whitfield (Order Date - 02/14/2024) (Collection Date & Time - 02/14/2024 01:50 PM)?ValueReference Range?Christa Winkler- ???Lab:Lipid Panel (Order Date - 03/17/2024) (Collection Date & Time - 03/17/2024 07:30 AM)?ValueReference Range?Fbqckgtxmdwck973<150 - mg/dL?Zyuswpxavrj722<200 - mg/dL?LDL Cholesterol Amvcxynybr992X <100 - mg/dL?HDL Usxafntypzc06>40 - mg/dL ???Lab:Vitamin D 25-OH Total (Order Date - 03/17/2024) (Collection Date & Time - 03/17/2024 07:30 AM)?ValueReference Range?Vitamin D 25-OH Total 53.6>30 - ng/mL ???Lab:Hemoglobin A1c (Order Date 03/17/2024) (Collection Date & Time - 03/17/2024 07:30 AM)?ValueReference Range?Hemoglobin A1c %5.9<6.0 - %?Estimated Average Soavnsp488- mg/dL ???Lab:Microalbumin, Random (Order Date 03/17/2024) (Collection Date & Time - 03/17/2024 07:30 AM)?ValueReference Range?Creatinine Urine99.27- mg/dL?Microalbumin Urine17.0- mg/L?Microalbum Creatinine Ratio Ur 17.1<30 - ug/mg cr ???Lab:Comprehensive [place]. Panel Fast (Order Date - 03/17/2024) (Collection Date & Time - 03/17/2024 07:30 AM)?ValueReference Range?Ksapef502583- 145 - mmol/L?Bilirubin Total0.60.0-1.0 - mg/dL?Aspartate Amino Mvodnpnhzcq22V4-72 - U/L?Alanine Nwpfbduvwyrzjptf20G1-37 - U/L ?Total Protein7.06.5-8.0 - g/dL?Albumin Level4.23.5-5.0 - g/dL ?Alkaline Rlpcsbkbtqj9838-398 - U/L?Potassium4.23.3-5.1 - mmol/L ?Ytmfonjz77314-304 - mmol/L?Carbon Tzzeoej8099-93 - mmol/L ?Anion Kdp1519-26 -?Blood Urea Usvkkwnr10L9-78 - mg/dL ?Creatinine0.680.5-1.4 - mg/dL?Estimated Glomerular Filt Rate> 60- ?Glucose Bhnbgat844L51-88 - mg/dL?Calcium8.68.4-10.2 - mg/dL * Examination: G eneral Examination: GENERAL APPEARANCE: w ell developed, well nourished, in no acute distress. HEAD: n ormocephalic, atraumatic. EYES: p upils equal, round, reactive to light and accommodation, sclera non-icteric. EARS: n ormal. ORAL CAVITY: m ucosa moist. THROAT: c lear. NECK/THYROID: n sabrina supple, full range of motion, no cervical lymphadenopathy, no bruits. SKIN: w arm and dry, no suspicious lesions, abnormal small venous olmstead on lip. has a 1/4 in skin tag that appears irritated as it is under her bra strap. HEART: r egular rate and rhythm, S1, S2 normal, no murmurs.? LUNGS: c lear to auscultation bilaterally. ABDOMEN: s oft, nontender, nondistended, bowel sounds present, normal, no organomegaly , no masses palpable. RECTAL EXAM: n ot examined. EXTREMITIES: n o clubbing, cyanosis, or edema. NEUROLOGIC: n onfocal, motor strength normal upper and lower extremities, sensory exam intact. Assessment: * Assessment: 1. A nnual physical exam - Z00.00 (Primary) 2 . E levated BP - I10 ? 3 . V enous olmstead - R23.8 4 . P ure hypercholesterolemia - E78.00? 5. P rediabetes - R73.09 6 . V itamin D deficiency - E55.9 7. I rritable bowel syndrome with both constipation and diarrhea - K58.2 ? 8 . D epression screening - Z13.31 Plan: * Treatment: 2. E levated BP Notes: doing well, will contnue current regiment and will continue to monitor 3. V enous olmstead Notes: observaition. if it gets bigger can treat with laser for cosmetic purpases 4. P ure hypercholesterolemia Notes: stable, will continue current regiment 5. P rediabetes Notes: stable, no need for medication at thhis time 6. V itamin D deficiency Continue Vitamin D-3 Capsule, 1000 UNIT, 2 capsule, Orally, Once a day. Notes: stable, will continue current regiment 7. D epression screening Notes: negative screen 8. O samiras Referral To:[facility] Reason:skin tag middle of her back * Procedure Codes: * * Sign off status: Completed true * Provider: Danielle Ivan MD Date: 0 03/24/2024 Generated for Christine hunt/Andres/Gloriaitting on: 1 02:34 PM EDT History and Physical Notes * HPI (History of Present Illness) Category Sub-Category Detail Notes Category Not es Symptom(s) patient is a 59 yo female here for yearly follow up with review of recent abs and follow up of chronioc issues. has been doing well Depression Screening PHQ-9 Little inte rest or pleasure in doing things: Not at all Feeling down, depressed, or hopeless: No t at all Trouble falling or staying asleep, or sl eeping too much: Not at all Feeling tired or having little energy: N ot at all Poor appetite or overeating: Not at all Feeling bad about yourself o r that you are a failure, or have let yourself or your family down: Not at all Trouble concentrating on thi ngs, such as reading the newspaper or watching television: Not at all Moving or speaking so slowly that other people could have noticed; or the opposite, being so fidgety or restless that you have been moving around a lot more than usual: Not at all Thoughts that you would be b marc off or of hurting yourself in some way: Not at all Total Score: 0 Interpretation and Intervention Depression Lata lebron Findings: Negative Follow-Up for Depression: : review of PH Q-9 found negative result, no follow-up needed SDOH Questions SDOH Questions In the past year have you been worried about losing housing?: No In the past year have you or any family members you live with been unable to get any of the following when it was really needed? Check all that apply:: None Fall Risk History Have you had any falls with injury i n the past year?: No Have you had two or more falls in the year?: No Communication Needs Communication Needs Does the patient have a hearing impairment: No Does the patient have a vision impairmen t?: Yes If yes, what is the vision impairment?: Glasses Does the patient have a cognition impair ment?: No Examination Category Sub-Category Detail Notes Category Not es General Examination GENERAL APPEARANCE: well dev eloped, well nourished, in no acute distress HEAD: normocephalic, atrau matic EYES: pupils equal, round, reactive to light and accommodation, sclera non-icteric EARS: normal THROAT: clear NECK/THYROID: neck supple, full ra nge of motion, no cervical lymphadenopathy, no bruits HEART: regular rate and rhy thm, S1, S2 normal, no murmurs LUNGS: clear to auscultatio n bilaterally ABDOMEN: soft, nontender, non distended, bowel sounds present, normal, no organomegaly , no masses palpable NEUROLOGIC: nonfocal, motor stre ngth normal upper and lower extremities, sensory exam intact SKIN: warm and dry, no sana picious lesions, abnormal small venous olmstead on lip. has a 1/4 in skin tag that appears irritated as it is under her bra strap EXTREMITIES: no clubbing, cyanosi s, or edema MALE GENITOURINARY: RECTAL EXAM: not examined ORAL CAVITY: mucosa moist Consultation Request Notes Referral Date Referring Provider Referred Provider Not es 03/24/2024 Gerber Ivan John skin tag middle of her back
--- OUTSIDE RECORDS SUMMARY | 2024-11-19 14:34 | XMS_ITS | Patient Health Record ---
Author Organization Gerber Ivan MD Address [address] [place] [phone] Care Team Providers Care Aircraft Metalsmith Name Role Phone Gerber Ivan Primary Care Provider [phone] Allergies No Known Allergies Results Component Value Reference Range Notes Complete Blood Count Auto Di ff Reviewed date:03/17/2024 01:27:38 PM Interpretation: Performing Lab:[facility], [address] [place] [phone] Notes/Report: White Blood Count 6.6 4.8-10.8 X10*3/uL [...] NRBC Abs Auto 0.000 0.0-0.012 X10*3/uL Comprehensive Neptune. Panel Fa st Reviewed date:03/17/2024 04:32:37 PM Interpretation: Performing Lab:[facility], [address] [place] [phone] Notes/Report: Sodium 139 135-145 mmol/L Potassium 4.2 [...] Panel Reviewed date:03/17/2024 12:47:40 PM Interpretation: Performing Lab:[address] [phone] Notes/Report: Triglycerides 107 <150 mg/dL Desirable Triglyceride: [...] Total Reviewed date:03/17/2024 12:47:54 PM Interpretation: Performing Lab:[address] [phone] Notes/Report: Vitamin D 25-OH Total 53.6 >30 [...] Random Reviewed date:03/17/2024 04:30:37 PM Interpretation: Performing Lab:[facility], [address] [place] [phone] Notes/Report: Creatinine Urine 99.27 Microalbumin Urine 17.0 Microalbum/Creatinine Ratio Ur 17.1 <30 ug/mg cr Albumin/Creatinine Ratio Reference Ranges: Normal: < 30 ug/mg creatinine Microalbuminuria: 30 - 300 ug/mg creatinine Clinical Albuminuria: > 300 ug/mg creatinine Hemoglobin A1c Reviewed date:03/17/2024 12:40:35 PM Interpretation: Performing Lab:[facility], [address] [place] [phone] Notes/Report: Hemoglobin A1c % 5.9 <6.0 % [...] average glucose, using the formula of the V1L-Rfjlpom Average Glucose study (ADAG), Diabetes Care, Vol.31,#8, Sep. 2007 Complete Blood Count Auto Di ff Reviewed date:02/14/2024 04:49:50 PM Interpretation: Performing Lab:[facility], [address] [place] [phone] Notes/Report: White Blood Count 8.8 4.8-10.8 X10*3/uL [...] 0.0-0.2 /100WBC Neutrophils Absolute Auto 4.9 2.0-8.3 x10*3/u L Imm Gran Abs Auto 0.04 0.00-0.03 X10*3/uL Lymphocytes Absolute Auto 3.1 1.2-4.9 X10*3/u L Monocytes Absolute Auto 0.7 0.1-1.2 X10*3/uL Eosinophils Absolute Auto 0.1 0.0-0.4 X10*3/u L Basophils Absolute Auto 0.0 0.0-0.2 X10*3/uL NRBC Abs Auto 0.000 0.0-0.012 X10*3/uL Comprehensive Met. Panel Reviewed date:02/14/2024 02:56:30 PM Interpretation: Performing Lab:[facility], [address] [place] [phone] Notes/Report: Sodium 138 135-145 mmol/L Potassium 3.8 [...] Gold Reviewed date:02/14/2024 02:56:44 PM Interpretation: Performing Lab:[facility], [address] [place] [phone] Notes/Report: Hold Gold See Note Specimen held untested for 24 hours; Call to request Chemistry testing. Reason For Referral Reason skin tag middle of h er back Diagnosis 1 Skin tag (L91.8) Referral Organization Gerber Ivan MD Referring Provider First Name Gerber Referring Provider Last Name Moncho Referring Provider Speciality Internal M edicine Referred Provider Bertram Duke Referred Provider Specialty Surgery General Notes Laenn Zamora 0 03/24/2024 03:16:23 PM called patient [...] Problem Status W/U Status Risk Notes Problem [id number] Vitamin D defici ency (E55.9) Active confirmed Problem 099001101 Body mass index (BMI) 30.0-30.9, adult (Z68.30) Active confirmed Problem 49001321 Kidney stone (N20.0) Active confirmed Problem 7648673 Prediabetes (R73.09) Active confirmed Problem 66768559 Kidney stones (N20.0) Active confirmed Problem 92883824 Elevated BP (I10) Active confirmed Problem 568471699 Pure hypercholesterolemia (E78.00) Active confirmed Problem 43918496 Irritable bowel syndrome with both 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) Active confirmed Problem 020208620 Abnormal mammogr am of both breasts (R92.8) Active confirmed Problem 297824666 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) Active confirmed Vital Signs Blood pressure diastolic 76 mm Hg 03/24/2024 naomie ght is down 2 pounds since 10-10-23 Height 62 in 03/24/2024 weight is down 2 pounds since 10-10-23 Blood pressure systolic 122 mm Hg 03/24/2024 weig ht is down 2 pounds since 10-10-23 Weight 158 lbs 03/24/2024 weight is down 2 pounds since 10-10-23 BMI 28.9 kg/m2 03/24/2024 weight is down 2 pounds since 10-10-23 Encounters Encounter Location Date Provider Diagnosis Gerber Ivan MD [address] [place] [address] [address] [place], [place] [phone] 03/17/2024 Gerber Ivan Blood tests for rout ine general physical examination Z00.00 ; Prediabetes R73.09 ; Pure hypercholesterolemia E78.00 and Vitamin D deficiency E55.9 Gerber Ivan MD [address] [facility] [address] [place], [place] [phone] 03/24/2024 Gerber Ivan Annual physical exam Z00.00 [...] ine general physical examination (ICD-10 - Z00.00) 03/24/2024 Annual physical exam (ICD-10 - Z00.00) [...] CONTRAST 12/15/2019 Next Appt Details Provider Name:Gerber burris, 03/23/2025 07:30:00 AM, [address], [address], [place], [place], [phone], Provider Name:Gerbermerari burris, 03/30/2025 02:30:00 PM, [address] [facility], [address], [place], [place], [phone], Insurance Providers Payer Name Payer Address Payer Phone Subscriber Number Group Number Insured Name Patient Relationship to Insured Coverage Start Date Coverage End Date [facility] [address] [place], [place] [phone] [id number] Kelly Erickson Self - patient is the insured Medical (General) History Medical History History ICD Code Colonoscopy 08/08/15 - Dr. Keila Espinosa h - repeat 10 years Surgical History Surgery Date(Month/Year) RT Breast Biopsy w/Needle Localization b y Dr. Doreen Mcmahon 11/2018
== END 2024-11-19 13:09 | disposition home or self-care (01) ==
LOC: HO.MAMMO 13:08
PROVIDERS: PCP Internal Medicine; Visit Provider Internal Medicine
DX: Z12.31 Encounter for screening mammogram for malignant neoplasm of breast (principal)
CPT/HCPCS: 77063; 77067

== ENCOUNTER → 2024-11-19 13:15 | Outpatient (BNV) | payer BC, SELFPAY | PROVIDERS: PCP Internal Medicine; Visit Provider Internal Medicine | DX: Z12.31 Encounter for screening mammogram for malignant neoplasm of breast (principal) | CPT/HCPCS: 77063; 77067 ==